=== PATIENT | female | born 1945 | race Caucasian/White ===

== ENCOUNTER 2017-09-09 13:36 | Observation (INO) | payer BC, OTHER ==
[2017-09-09 15:10] LABS: BASOPHILS # (AUTO) 0.1 X10^3/uL (0.0-0.1); BASOPHILS % (AUTO) 1.3 % (0.2-1.0); EOSINOPHILS # (AUTO) 0.2 x10^3/uL (0.0-0.2); EOSINOPHILS % (AUTO) 2.5 % (0.9-2.9); HEMATOCRIT 38.4 % (36.0-47.0); HEMOGLOBIN 13.2 g/dL (12.0-16.0); LYMPHOCYTES # (AUTO) 2.2 X10^3/uL (1.3-2.9); LYMPHOCYTES % (AUTO) 26.1 % (21.0-51.0); MEAN CORPUSCULAR HEMOGLOBIN 30.3 pg (27.0-34.0); MEAN CORPUSCULAR HGB CONC 34.3 g/dL (33.0-35.0); MEAN CORPUSCULAR VOLUME 88.4 fL (80.0-100.0); MEAN PLATELET VOLUME 8.5 fL (7.4-11.0); MONOCYTES # (AUTO) 0.5 x10^3/uL (0.3-0.8); MONOCYTES % (AUTO) 5.6 % (0.0-13.0); NEUTROPHILS # (AUTO) 5.5 x10^3/uL (2.2-4.8); NEUTROPHILS % (AUTO) 64.5 % (42.0-75.0); PLATELET COUNT 208 X10^3/uL (150.0-450.0); RED BLOOD COUNT 4.34 X10^6/uL (3.5-5.4); RED CELL DISTRIBUTION WIDTH 14.1 % (11.6-16.5); WHITE BLOOD COUNT 8.5 X10^3/uL (3.6-10.0)
[2017-09-09 15:28] LABS: ALANINE AMINOTRANSFERASE 43 Units/L (12-78); ALBUMIN 3.5 g/dL (3.4-5.0); ALKALINE PHOSPHATASE 126 Units/L (46-116); ASPARTATE AMINO TRANSFERASE 21 Units/L (15-37); BLOOD UREA NITROGEN 19 mg/dL (7-18); CALCIUM 8.9 mg/dL (8.5-10.1); CARBON DIOXIDE 28.8 mmol/L (21-32); CHLORIDE 102 mmol/L (98-107); COR NA(FOR HYPERGLY) 141 mmol/L (136-145); CREATININE 0.83 mg/dL (0.55-1.02); MAGNESIUM 1.9 mg/dL (1.7-2.9); SODIUM 140 mmol/L (136-145); TOTAL PROTEIN 6.7 g/dL (6.4-8.2); eGFR BLACK RACES > 60 (>60); eGFR NON BLACK RACES > 60 (>60)
[2017-09-09] MEDS ORDERED: POTASSIUM CHL 40 MEQ/NS 0.45% 500 ML IV PRN (15:39)
[2017-09-09] MEDS ORDERED: MAGNESIUM SULFATE 1 GM/100 mL PREMIX 1 GM/100 ML BAG IV PRN (15:39)
[2017-09-09] MEDS ORDERED: MAG-OX TAB PO PRN (15:39)
[2017-09-09] MEDS ORDERED: POTASSIUM CHL 60 MEQ/NS 0.45% 500 ML IV PRN (15:39)
[2017-09-09] MEDS ORDERED: POTASSIUM CHLORIDE LIQ 20 MEQ UDC PO PRN (15:39)
[2017-09-09] MEDS ORDERED: K-RIDER 10 MEQ/NS 100 ML 10 MEQ/100 ML BAG IV PRN (15:39)
[2017-09-09] MEDS ORDERED: K-LYTE EFFERVESCENT PO PRN (15:39)
[2017-09-09 15:50] LABS: CKMB % 1.5 % (<4); CREATINE KINASE 66 Units/L (26-192); CREATINE KINASE MB < 1.0 ng/mL (0-4.0); TROPONIN I < 0.02 ng/mL (0-1.5)
[2017-09-09] MEDS: NS 1000 ML 1,000 ML IV SCH (16:02)
[2017-09-09] MEDS: ASPIRIN PO SCH (16:02)
--- NOTE | 2017-09-09 16:14 | RAD ---
HISTORY: Chest pain and shortness of breath. Study: Portable chest. Comparison: Chest x-ray dated February 03, 2016. Findings: The trachea is midline. The cardiac silhouette is unremarkable. No obvious focal consolidation, ple ural effusion, or pneumothorax. The bony thorax is unremarkable. IMPRESSION: No acute cardiopulmonary disease. Reported By:
[2017-09-09 16:27] VITALS: BMI 37.8
--- NOTE | 2017-09-09 16:27 | CT ---
HISTORY: Chest pain, shortness of breath, and weakness. Study: CT brain without contrast Comparison: CT head dated January 22, 2016. Technique: Multiple axial images of the brain were obtained from the skull base to the vertex without administra tion of IV contrast. Dose reduction techniques including Automated Exposure Control (AEC) and adjust ment of mA and kV were utilized. Findings: Age-related cortical atrophy and chronic small vessel ischemic changes. Remote left craniotomy appear s unchanged given technique. No acute intraparenchymal hemorrhage or mass can be identified. No extr a-axial fluid collections are seen. No alteration in the attenuation of the brain parenchyma can be identified to suggest acute or subacute ischemic change. The ventricular system is symmetric and non dilated. The extracranial structures are grossly unremarkable. IMPRESSION: No acute intracranial pathology. Reported By:
[2017-09-09 17:00] LABS: BILIRUBIN,URINE NEGATIVE (NEGATIVE); BLOOD/HEMOGLOBIN,URINE NEGATIVE (NEGATIVE); GLUCOSE, URINE NEGATIVE (NEGATIVE); KETONES,URINE NEGATIVE (NEGATIVE); LEUKOCYTE ESTERASE ,URINE 3+ (NEGATIVE); NITRITES,URINE NEGATIVE (NEGATIVE); PROTEIN,URINE NEGATIVE (NEGATIVE); UROBILINOGEN,URINE NORMAL (NORMAL)
[2017-09-09 17:13] LABS: APPEARANCE,URINE CLEAR (CLEAR); BACTERIA,URINE NEGATIVE /HPF (NEGATIVE); COLOR,URINE YELLOW (YELLOW); RBC,URINE NEG /HPF (NONE SEEN); SQUAMOUS EPITHELIAL CELL,UR NEGATIVE /HPF (NEGATIVE)
[2017-09-09 19:25] LABS: CKMB % 1.4 % (<4); CREATINE KINASE 72 Units/L (26-192); CREATINE KINASE MB < 1.0 ng/mL (0-4.0); TROPONIN I < 0.02 ng/mL (0-1.5)
[2017-09-10] LABS: CKMB % 1.5 % (<4); CREATINE KINASE 68 Units/L (26-192); CREATINE KINASE MB < 1.0 ng/mL (0-4.0); TROPONIN I < 0.02 ng/mL (0-1.5)
[2017-09-10] MEDS: NS 1000 ML 1,000 ML IV SCH ×2 (04:39→15:49)
[2017-09-10 05:39] LABS: BASOPHILS # (AUTO) 0.1 X10^3/uL (0.0-0.1); EOSINOPHILS # (AUTO) 0.2 x10^3/uL (0.0-0.2); EOSINOPHILS % (AUTO) 3.4 % (0.9-2.9); HEMATOCRIT 38.6 % (36.0-47.0); HEMOGLOBIN 13.2 g/dL (12.0-16.0); LYMPHOCYTES % (AUTO) 30.6 % (21.0-51.0); MEAN CORPUSCULAR HEMOGLOBIN 30.4 pg (27.0-34.0); MEAN CORPUSCULAR HGB CONC 34.2 g/dL (33.0-35.0); MEAN CORPUSCULAR VOLUME 88.8 fL (80.0-100.0); MEAN PLATELET VOLUME 8.7 fL (7.4-11.0); MONOCYTES # (AUTO) 0.7 x10^3/uL (0.3-0.8); MONOCYTES % (AUTO) 10.1 % (0.0-13.0); NEUTROPHILS # (AUTO) 3.6 x10^3/uL (2.2-4.8); NEUTROPHILS % (AUTO) 54.9 % (42.0-75.0); PLATELET COUNT 202 X10^3/uL (150.0-450.0); RED BLOOD COUNT 4.35 X10^6/uL (3.5-5.4); RED CELL DISTRIBUTION WIDTH 14.3 % (11.6-16.5); WHITE BLOOD COUNT 6.6 X10^3/uL (3.6-10.0)
[2017-09-10 05:52] LABS: ALANINE AMINOTRANSFERASE 45 Units/L (12-78); ALBUMIN 3.3 g/dL (3.4-5.0); ALKALINE PHOSPHATASE 116 Units/L (46-116); ASPARTATE AMINO TRANSFERASE 26 Units/L (15-37); BLOOD UREA NITROGEN 15 mg/dL (7-18); CALCIUM 8.8 mg/dL (8.5-10.1); CHLORIDE 105 mmol/L (98-107); CHOL/HDL RATIO 3.7 (0.0-5.0); CHOLESTEROL 172 mg/dL (0-200); COR CA(FOR HYPOALB) 9.4 mg/dL (8.5-10.1); CREATININE 0.56 mg/dL (0.55-1.02); HDL CHOLESTEROL 46 mg/dL (40-60); SODIUM 141 mmol/L (136-145); TOTAL PROTEIN 6.3 g/dL (6.4-8.2); TRIGLYCERIDES 70 mg/dL (0-150); eGFR BLACK RACES > 60 (>60); eGFR NON BLACK RACES > 60 (>60)
--- NOTE | 2017-09-10 06:28 | RAD ---
HISTORY: 72-year-old female with chest pain and shortness of breath. Study: Frontal view of the chest. Comparison: Chest radiograph 09/09/2017 Findings: The trachea is midline. The cardiac silhouette is stable with prominent perihilar lung markings and interstitium. The lungs are clear without focal consolidation, effusion or pneumothorax. Soft tissue s are unremarkable. Osseous structures are unremarkable. IMPRESSION: 1. No acute cardiopulmonary disease. Reported By:
[2017-09-10] MEDS: ASPIRIN PO SCH (10:00)
[2017-09-10] MEDS ORDERED: LOMOTIL PO PRN (10:28)
[2017-09-10] MEDS ORDERED: NORCO 7.5/325 MG TAB PO PRN (10:28)
[2017-09-10] MEDS ORDERED: BOSWELLIA SERRA PO SCH (10:30)
[2017-09-10] MEDS ORDERED: D3 PO SCH (10:30)
[2017-09-10] MEDS ORDERED: GLUCOSAMINE PO SCH (10:30)
[2017-09-10] MEDS ORDERED: PATIENT'S HOME MEDICATION (Cholecalciferol (Vitamin D3) [Vitamin D3] 1 TAB) PO SCH (10:30)
[2017-09-10] MEDS ORDERED: CATAPRES-TTS-1 TD SCH (11:00)
[2017-09-10] MEDS ORDERED: NEURONTIN CAP 400 MG PO SCH ×2 (11:00→21:00)
[2017-09-10] MEDS: NORVASC TAB 5 MG PO SCH (13:30)
[2017-09-10] MEDS: SINGULAIR TAB 10 MG PO SCH (13:30)
--- NOTE | 2017-09-10 17:26 | MRI ---
MR brain with contrast Indication: Hypertension, weakness, altered mental status and dizziness. History of brain cancer in p rior brain surgery elicited. Comparison: CT head from the previous day. Technique: Multiplanar multi sequence imaging through the brain before and after IV contrast per prot ocol. Findings: Diffusion-weighted imaging shows no area of restricted diffusion to suggest infarction. Post craniotomy changes seen in the left parietal bone. Bone marrow signal is otherwise normal. Upper cervical spine is intact with minimal degenerative change. Orbits and globes appear normal. Facial s oft tissues appear normal. Paranasal sinuses and mastoid air cells are clear. Pituitary gland is norm al. Vascular flow voids appear normal. There is no extra-axial fluid collection, mass or mass effect. Gradient imaging shows no evidence of old hemorrhage in the brain. FLAIR imaging shows minimal periv entricular white matter changes and scattered microangiopathic change in the cerebral white matter wi thout focal lesion. Dear of beneath the craniotomy appears normal without large encephalomalacia. Min imal atrophic change with ex vacuo ventricle and sulcal enlargement is noted. After contrast, intracr anial structures enhance normally. No enhancing mass lesion identified. No abnormal area of parenchym al enhancement identified. Impression: 1. No acute intracranial hemorrhage or stroke. 2. Post left parietal craniotomy changes. 3. Mild atrophic change. 4. No enhancing brain mass identified. Reported By:
--- NOTE | 2017-09-10 17:31 | MRI ---
MRA head without contrast Indication: Weakness with altered mental status and dizziness. Technique: 3D plik-no-bexfts imaging through the brain was performed without contrast. 3D reformats p rovided. Comparison: Scan from the previous day and MR brain from the same day. Findings: The visualized vertebral areteries appear normal. The basilar artery is normal. The left po sterior cerebral artery is normal. The right posterior cerebral artery is provided flow via large pos terior communicating artery compatible with variant anatomy. The bilateral internal carotid arteries appear normal at the skullbase. At the level of the cavernous sinus there is mild to moderate narrowi ng of the transition to the supraclinoid/communicating segment. No large aneurysm seen. The bilateral anterior cerebral arteries are patent. Bilateral middle cerebral arteries are patent. Dural venous s inuses enhance normally. Impression: 1. No occlusion or aneurysm seen. 2. Variant left posterior cerebral artery origin. 3. Moderate narrowing of the communicating/supraclinoid segments of the bilateral internal carotid ar teries suggests atherosclerotic plaque without severe stenosis. Reported By:
[2017-09-10] MEDS ORDERED: MAALOX or MYLANTA PO PRN (19:53)
[2017-09-10] MEDS ORDERED: COUMADIN TAB 4 MG PO SCH (21:00)
[2017-09-10] MEDS ORDERED: LIPITOR TAB 40 MG PO SCH (21:00)
[2017-09-11] MEDS: NS 1000 ML 1,000 ML IV SCH (05:45)
[2017-09-11 06:01] LABS: BASOPHILS # (AUTO) 0.1 X10^3/uL (0.0-0.1); BASOPHILS % (AUTO) 0.9 % (0.2-1.0); EOSINOPHILS # (AUTO) 0.2 x10^3/uL (0.0-0.2); EOSINOPHILS % (AUTO) 3.4 % (0.9-2.9); HEMATOCRIT 40.3 % (36.0-47.0); HEMOGLOBIN 13.9 g/dL (12.0-16.0); LYMPHOCYTES # (AUTO) 1.9 X10^3/uL (1.3-2.9); LYMPHOCYTES % (AUTO) 26.6 % (21.0-51.0); MEAN CORPUSCULAR HEMOGLOBIN 30.5 pg (27.0-34.0); MEAN CORPUSCULAR HGB CONC 34.4 g/dL (33.0-35.0); MEAN CORPUSCULAR VOLUME 88.6 fL (80.0-100.0); MEAN PLATELET VOLUME 8.7 fL (7.4-11.0); MONOCYTES # (AUTO) 0.7 x10^3/uL (0.3-0.8); MONOCYTES % (AUTO) 10.3 % (0.0-13.0); NEUTROPHILS # (AUTO) 4.3 x10^3/uL (2.2-4.8); NEUTROPHILS % (AUTO) 58.8 % (42.0-75.0); PLATELET COUNT 197 X10^3/uL (150.0-450.0); RED BLOOD COUNT 4.54 X10^6/uL (3.5-5.4); WHITE BLOOD COUNT 7.2 X10^3/uL (3.6-10.0)
[2017-09-11 06:16] LABS: ALANINE AMINOTRANSFERASE 43 Units/L (12-78); ALBUMIN 3.3 g/dL (3.4-5.0); ALKALINE PHOSPHATASE 125 Units/L (46-116); ASPARTATE AMINO TRANSFERASE 25 Units/L (15-37); BLOOD UREA NITROGEN 12 mg/dL (7-18); CALCIUM 8.6 mg/dL (8.5-10.1); CARBON DIOXIDE 29.9 mmol/L (21-32); CHLORIDE 105 mmol/L (98-107); COR CA(FOR HYPOALB) 9.2 mg/dL (8.5-10.1); CREATININE 0.54 mg/dL (0.55-1.02); SODIUM 144 mmol/L (136-145); TOTAL PROTEIN 6.5 g/dL (6.4-8.2); eGFR BLACK RACES > 60 (>60); eGFR NON BLACK RACES > 60 (>60)
[2017-09-11] MEDS ORDERED: PAXIL PO SCH (09:00)
[2017-09-11] MEDS ORDERED: MICRO K EXTEN CAP 10 MEQ PO SCH (09:00)
[2017-09-11] MEDS ORDERED: COZAAR PO SCH (09:00)
[2017-09-11] MEDS ORDERED: HYDROCHLOROTHIAZIDE 12.5 MG CAP PO SCH (09:00)
[2017-09-11] MEDS: NORVASC TAB 5 MG PO SCH (09:37)
[2017-09-11] MEDS: ASPIRIN PO SCH (09:37)
[2017-09-11] MEDS: SINGULAIR TAB 10 MG PO SCH (09:37)
[2017-09-11 10:44] VITALS: BP 178/86
--- NOTE | 2017-09-14 14:05 | DR.UPDATE ---
H&P Update History and Physical Update: WAS SEEN IN THE OFFICE ON 09/09/2017. A H&P WAS COMPLETED PRIOR TO ADMISSION. PATIENT HAS BEEN SEEN AND EXAMINED WITH NO CHANGES NOTED TO H&P. Changes noted: NO Yes with the following:
== END 2017-09-11 10:55 | disposition home or self-care (01) ==
LOC: MED/SURG 13:36 → UNDOADMOB 13:36 → MED/SURG 14:09
PROVIDERS: ADMIT Internal Medicine; ATTEND Internal Medicine
DX: R06.02 Shortness of breath (principal); R53.1 Weakness; R07.89 Other chest pain; R42 Dizziness and giddiness; R94.31 Abnormal electrocardiogram [ECG] [EKG]; E03.8 Other specified hypothyroidism; E11.65 Type 2 diabetes mellitus with hyperglycemia; I10 Essential (primary) hypertension; F41.1 Generalized anxiety disorder; R79.1 Abnormal coagulation profile
CPT/HCPCS: 36415; 70450; 70544; 70552; 71045; 80053; 80061; 81001; 82550; 82553; 83036; 83735; 84484; 85025; 85610; 85730; 93005; 94760; A4216; A4222; G0378

== ENCOUNTER 2018-11-16 09:43 | Observation (INO) ==
[2018-11-16 09:59] VITALS: BMI 38.1
--- NOTE | 2018-11-16 10:22 | CT ---
HISTORY: Acute left-sided weakness Study: CT head without contrast Comparison: MRA brain 09/10/2017 Technique: Axial noncontrast images with coronal and sagittal reformats. Dose reduction procedures were used with mA/kv adjusted for body size. Findings: The patient is status post left posterior parietal craniotomy. The ventricles are normal in size, shape, and position. There is mild cortical atrophy present likely age related. There is no definite evidence for recent or remote CVA, hemorrhage, mass lesion, or extra-axial fluid collection. The visualized sinuses are clear. If acute CVA is a strong clinical consideration MRI with diffusion imaging is recommended for further evaluation. IMPRESSION: No acute intracranial abnormality Postoperative changes in the cranium as described Mild age-related cortical atrophy Reported By:
--- NOTE | 2018-11-16 10:25 | RAD ---
HISTORY: Left-sided weakness and chest pain. Study: Portable chest. Comparison: Chest x-ray dated September 10, 2017. Findings: The trachea is midline. The cardiac silhouette is unremarkable. No obvious focal consolidation, pleural effusion, or pneumothorax. The bony thorax is unremarkable. IMPRESSION: No acute cardiopulmonary disease. Reported By:
--- NOTE | 2018-11-16 10:26 | DR.WEAKNES ---
HPI Time Seen Time Seen by Provider: 11/16/18 09:53 Primary Care Physician Primary Care Physician: Payam HPI Comment HPI Comment: PT. STATES SHE GOT UP TO GO TO THE RESTROOM THIS MORNING AND SHE HAD NUMBNESS TO HER LEFT LEG. PT. STATES THE NUMBNESS THEN EXTENDED UP TO THE WHOLE LEFT SIDE OF HER BODY. PT. STATES "MY LEFT LEG FEELS ." EMS CALL TIME WAS 0904. PT. STATES EPISODE OCCURED 20 MINS PRIOR TO THEIR ARRIVAL. PT. DENIES PAIN. Complaints Chief Complaint Doctors Comments: Left sided weakness onset this AM. Patient noticed numbness to her left leg when attempting to go to the bathroom Chief Complaint:: LEFT SIDED WEAKNESS 08:45AM TODAY. Self Treatment fo Chief Complaint: Called EMS Reviewed Nurses Notes Reviewed: Yes Timing Symptom Onset: Known Onset of Symptoms Start Date: 11/16/18 Onset of Symptoms Start Time: 08:30 Duration Duration: Constant Context Onset: Spontaneous Symptoms: Numbness (left leg and does not have control of ther left arm) and Difficulty walking Stroke Symptoms: Weakness of limb and Numbness of limbs Location Weakness Location: Left, Arm and Leg Associated Signs and Symptoms Associated Signs and Symptoms: None PMH PMH Past Medical History: Arthritis, Depression, Dyslipidemia and Hypertension Past Surgical History: Yes Surgical History: [employer] Surgery, Hysterectomy and Ortho Surgery Family History Family Medical History: Cancer, Coronary Artery Disease, Sudden Cardiac and Hypertension Social History Do you use any recreational Drugs:: No ROS Review of Systems Constitutional: No Symptoms Reported Eyes: No Symptoms Reported ENTM: No Symptoms Reported Respiratoy: No Symptoms Reported Cardiovascular: No Symptoms Reported Gastrointestinal/Abdominal: No Symptoms Reported Genitourinary: No Symptoms Reported Neurological: No Symptoms Reported and Numbness (Left leg and difficulty controlling Left upper ext) Musculoskeletal: No Symptoms Reported Integumentary: No Symptoms Reported Hematologic/Lymphatic: No Symptoms Reported Endocrine: No Symptoms Reported Psychiatric: No Symptoms Reported All Other Systems: Reviewed and Negative PE Vital Signs Vitals: Temperature 98.2 F Pulse Rate [Apical] 66 Pulse Rate 70 Respiratory Rate 11 Blood Pressure [Right Arm] 178/86 Blood Pressure [Left Arm] 144/67 Blood Pressure 162/74 O2 Sat by Pulse Oximetry 98 General Limitations: Physical Limitation (since onset of sx) General Appearance: Alert and Anxious Head Head Exam: Normal Inspection Eyes Eye exam: Normal Appearance Eyelids: Normal Inspection: Bilateral Pupils: Regular, Round: Bilateral Sclera/Conjunctival: Normal Inspection: Bilateral Anterior Chamber: Normal Inspection: Bilateral ENT ENT Exam: Normal Exam Mouth Exam: Normal Inspection Throat Exam: Normal Inspection Neck Neck Exam: Normal Inspection Chest Chest Inspection: Normal Inspection Respiratory Respiratory Exam: Normal Lung Sounds Bilat Respiratory Exam: Bilateral: Clear to Auscultation Cardiovascular Cardiovascular Exam: Regular Rate and Normal Rhythm Abdominal Exam Abdominal Exam: Normal Inspection, Normal Bowel Sounds and Soft Extremities Extremities Exam: Other (Left side weakness ) Back Back Exam: Normal Inspection Neurologic Neurological Exam: Alert and Oriented X3 Psychiatric Psychiatric Exam: Normal Affect and Anxious Skin Skin Exam: Warm, Dry, Intact and Normal Color MDM Differential Diagnosis Differential Diagnosis: CVA ROR Labs Reviewed Laboratory Results Reviewed?: Yes Result Diagrams: 11/17/18 05:55 11/17/18 05:55 Laboratory: WBC 6.0 X10^3/uL (3.6-10.0) 11/17/18 05:55 RBC 4.03 X10^6/uL (3.5-5.4) 11/17/18 05:55 Hgb 12.7 g/dL (12.0-16.0) 11/17/18 05:55 Hct 37.2 % (36.0-47.0) 11/17/18 05:55 MCV 92.2 fL (80.0-100.0) 11/17/18 05:55 MCH 31.6 pg (27.0-34.0) 11/17/18 05:55 MCHC 34.3 g/dL (33.0-35.0) 11/17/18 05:55 RDW 13.9 % (11.6-16.5) 11/17/18 05:55 Plt Count 229 X10^3/uL (150.0-450.0) 11/17/18 05:55 MPV 8.0 fL (7.4-11.0) 11/17/18 05:55 Neut % (Auto) 42.8 % (42.0-75.0) 11/17/18 05:55 Lymph % (Auto) 39.4 % (21.0-51.0) 11/17/18 05:55 [place] % (Auto) 11.8 % (0.0-13.0) 11/17/18 05:55 Eos % (Auto) 4.8 % (0.9-2.9) H 11/17/18 05:55 Baso % (Auto) 1.2 % (0.2-1.0) H 11/17/18 05:55 Neut # (Auto) 2.6 x10^3/uL (2.2-4.8) 11/17/18 05:55 Lymph # (Auto) 2.4 X10^3/uL (1.3-2.9) 11/17/18 05:55 [place] # (Auto) 0.7 x10^3/uL (0.3-0.8) 11/17/18 05:55 Eos # (Auto) 0.3 x10^3/uL (0.0-0.2) H 11/17/18 05:55 Baso # (Auto) 0.1 X10^3/uL (0.0-0.1) 11/17/18 05:55 Absolute Nucleated RBC 0.1 /100WBC 11/17/18 05:55 INR Target Range - 11/17/18 05:55 INR 2.99 (0.8-1.3) H 11/17/18 05:55 APTT 35.5 SECONDS (22.9-36.5) 11/17/18 05:55 PTT Comment - 11/17/18 05:55 Sodium 143 mmol/L (136-145) 11/17/18 05:55 Corrected Sodium TNP 11/17/18 05:55 Potassium 3.9 mmol/L (3.5-5.1) 11/17/18 05:55 Chloride 108 mmol/L (98-107) H 11/17/18 05:55 Carbon Dioxide 27.4 mmol/L (21-32) 11/17/18 05:55 BUN 10 mg/dL (7-18) 11/17/18 05:55 Creatinine 0.57 mg/dL (0.55-1.02) 11/17/18 05:55 Est GFR (MDRD) Af Amer > 60 (>60) 11/17/18 05:55 Est GFR (MDRD) Non-Af > 60 (>60) 11/17/18 05:55 Glucose 99 mg/dL (65-99) 11/17/18 05:55 Calcium 8.7 mg/dL (8.5-10.1) 11/17/18 05:55 Corrected Calcium 9.5 mg/dL (8.5-10.1) 11/17/18 05:55 Magnesium 1.8 mg/dL (1.7-2.9) 11/16/18 10:06 Total Bilirubin 0.40 mg/dL (0.2-1.0) 11/17/18 05:55 AST 19 Units/L (15-37) 11/17/18 05:55 ALT 30 Units/L (12-78) 11/17/18 05:55 Alkaline Phosphatase 95 Units/L (46-116) 11/17/18 05:55 Creatine Kinase 62 Units/L (26-192) 11/16/18 23:09 CK-MB (CK-2) < 1.0 ng/mL (0-4.0) 11/16/18 23:09 CK/CKMB % Calc 1.6 % (<4) 11/16/18 23:09 Troponin I 0.02 ng/mL (0-1.5) 11/16/18 23:09 Total Protein 5.7 g/dL (6.4-8.2) L 11/17/18 05:55 Albumin 3.0 g/dL (3.4-5.0) L 11/17/18 05:55 Globulin 2.7 g/dL (2.5-4.5) 11/17/18 05:55 Albumin/Globulin Ratio 1.1 Ratio (1.1-2.1) 11/17/18 05:55 Triglycerides 142 mg/dL (0-150) 11/17/18 05:55 Cholesterol 161 mg/dL (0-200) 11/17/18 05:55 LDL Cholesterol, Calc 92 mg/dL (0-100) 11/17/18 05:55 HDL Cholesterol 41 mg/dL (40-60) 11/17/18 05:55 Cholesterol/HDL Ratio 3.9 (0.0-5.0) 11/17/18 05:55 Specimen Type Clean catch urine 11/17/18 02:44 Urine Color Pale yellow (YELLOW) 11/17/18 02:44 Urine Appearance Clear (CLEAR) 11/17/18 02:44 Urine pH 7.0 (5.0 - 8.0) 11/17/18 02:44 Ur Specific [place] 1.005 (1.000-1.030) 11/17/18 02:44 Urine Protein Negative (NEGATIVE) 11/17/18 02:44 Urine Glucose (UA) Negative (NEGATIVE) 11/17/18 02:44 Urine Ketones Negative (NEGATIVE) 11/17/18 02:44 Urine Occult Blood Negative (NEGATIVE) 11/17/18 02:44 Urine Nitrite Negative (NEGATIVE) 11/17/18 02:44 Urine Bilirubin Negative (NEGATIVE) 11/17/18 02:44 Urine Urobilinogen Normal (NORMAL) 11/17/18 02:44 Ur Leukocyte Esterase 3+ (NEGATIVE) 11/17/18 02:44 Urine RBC None seen /HPF (NONE SEEN) 11/17/18 02:44 Urine WBC 10-20 /HPF (NONE SEEN) 11/17/18 02:44 Ur Squamous Epith Cells Few /HPF (NEGATIVE) 11/17/18 02:44 Urine Bacteria Trace /HPF (NEGATIVE) 11/17/18 02:44 Ur Culture Indicated? Yes/culture set up 11/17/18 02:44 XRAY XRAY Interpreted by: Radiologist XRAY Findings: Discussed findings with patient and family EKG Rate: 71 [place]: Normal Rhythm: NSR Block: None Hypertrophy: LVH ST: Normal Diagnosis Discharge Problem: TIA (transient ischemic attack), Hypokalemia, Left-sided weakness ADDITIONAL NOTES Additional Notes Additional Notes: Dr. Noyola notified via the Transfer line for Stroke portal consult. Consult completed and states patient is not a candidate for TPA according to NIH score. Patient's PCP notified and agrees to admit for continual care.
[2018-11-16 10:52] LABS: ALANINE AMINOTRANSFERASE 36 Units/L (12-78); ALBUMIN 3.5 g/dL (3.4-5.0); ALKALINE PHOSPHATASE 125 Units/L (46-116); ASPARTATE AMINO TRANSFERASE 19 Units/L (15-37); BLOOD UREA NITROGEN 13 mg/dL (7-18); CARBON DIOXIDE 30.9 mmol/L (21-32); CHLORIDE 102 mmol/L (98-107); CKMB % 1.3 % (<4); COR NA(FOR HYPERGLY) 144 mmol/L (136-145); CREATINE KINASE 77 Units/L (26-192); CREATINE KINASE MB < 1.0 ng/mL (0-4.0); CREATININE 0.77 mg/dL (0.55-1.02); SODIUM 142 mmol/L (136-145); TOTAL PROTEIN 6.7 g/dL (6.4-8.2); TROPONIN I 0.02 ng/mL (0-1.5); eGFR NON BLACK RACES > 60 (>60)
[2018-11-16 11:15] LABS: BASOPHILS # (AUTO) 0.1 X10^3/uL (0.0-0.1); BASOPHILS % (AUTO) 1.3 % (0.2-1.0); EOSINOPHILS # (AUTO) 0.2 x10^3/uL (0.0-0.2); EOSINOPHILS % (AUTO) 4.6 % (0.9-2.9); HEMATOCRIT 41.3 % (36.0-47.0); LYMPHOCYTES # (AUTO) 1.8 X10^3/uL (1.3-2.9); LYMPHOCYTES % (AUTO) 33.9 % (21.0-51.0); MEAN CORPUSCULAR HEMOGLOBIN 31.2 pg (27.0-34.0); MEAN CORPUSCULAR VOLUME 91.9 fL (80.0-100.0); MEAN PLATELET VOLUME 8.7 fL (7.4-11.0); MONOCYTES # (AUTO) 0.5 x10^3/uL (0.3-0.8); NEUTROPHILS # (AUTO) 2.7 x10^3/uL (2.2-4.8); NEUTROPHILS % (AUTO) 51.2 % (42.0-75.0); PLATELET COUNT 268 X10^3/uL (150.0-450.0); RED BLOOD COUNT 4.49 X10^6/uL (3.5-5.4); WHITE BLOOD COUNT 5.3 X10^3/uL (3.6-10.0)
[2018-11-16] MEDS ORDERED: POTASSIUM CHL 40 MEQ/NS 0.45% 500 ML 40 MEQ/500 ML BAG IV NR (12:00)
[2018-11-16] MEDS ORDERED: NORMODYNE INJ 100 MG VIAL IVP ONE (12:47)
[2018-11-16] MEDS ORDERED: LASIX PO SCH (13:16)
--- NOTE | 2018-11-16 15:33 | VAS ---
History: Acute left-sided weakness this morning graft study: Carotid duplex ultrasound Comparison: None Findings: Images show mild plaque formation in the distal right common carotid artery and also in the distal left common carotid artery. Peak systolic velocity in the distal right common carotid artery is 69.5 centimeters/second and in the right internal carotid artery is 86 for a ratio of 1.23. Peak systolic velocity in the distal left common carotid artery is 66.2 centimeters/second and in the left internal carotid artery is 73.9 for a ratio of 1.1. There is antegrade flow in the vertebral arteries. Impression: Relatively mild plaque formation, no evidence for stenosis. Reported By:
[2018-11-16 17:14] LABS: CKMB % 1.5 % (<4); CREATINE KINASE 65 Units/L (26-192); CREATINE KINASE MB < 1.0 ng/mL (0-4.0); TROPONIN I 0.02 ng/mL (0-1.5)
[2018-11-16] MEDS: NS 1/2 + KCL 20 MEQ/L 1,000 ML IV SCH (18:22)
--- NOTE | 2018-11-16 20:59 | MRI ---
MR brain without contrast Indication: Left-sided weakness. Possible stroke Comparison: CT head and carotid Doppler ultrasound from the same day. Brain MR from 08/21/2017 reviewed Technique: Multiplanar multi sequence imaging through the brain without contrast Findings: There is no abnormal area of restricted diffusion to suggest acute infarction. Susceptibility artifact from prior craniotomy noted. Left-sided craniotomy changes noted. Bone marrow signal is normal. Cervical spine is intact. Soft tissues of the face appear normal. Paranasal sinuses are clear. Midline structures are intact. Vascular flow voids are normal. There is no acute intracranial hemorrhage, mass or mass effect. No extra-axial fluid collection is identified. Minimal periventricular white matter and cerebral white matter T2 hyperintensities are unchanged from the prior compatible with marker angio pathic change. Susceptibility artifact from the craniotomy again noted on T2 star imaging. No other abnormality seen. Impression: 1. No acute intracranial hemorrhage or acute infarction identified. 2. Atrophy, microangiopathy and left craniotomy change, all similar to the prior without new acute abnormality identified. Reported By:
[2018-11-16] MEDS: NEURONTIN CAP 400 MG PO SCH (21:53)
[2018-11-16] MEDS: LIPITOR TAB 40 MG PO SCH (21:53)
[2018-11-16 23:39] LABS: CKMB % 1.6 % (<4); CREATINE KINASE 62 Units/L (26-192); CREATINE KINASE MB < 1.0 ng/mL (0-4.0); TROPONIN I 0.02 ng/mL (0-1.5)
[2018-11-17] MEDS: NS 1/2 + KCL 20 MEQ/L 1,000 ML IV SCH ×3 (03:00→20:33)
[2018-11-17 03:35] LABS: BILIRUBIN,URINE NEGATIVE (NEGATIVE); BLOOD/HEMOGLOBIN,URINE NEGATIVE (NEGATIVE); GLUCOSE, URINE NEGATIVE (NEGATIVE); KETONES,URINE NEGATIVE (NEGATIVE); LEUKOCYTE ESTERASE ,URINE 3+ (NEGATIVE); NITRITES,URINE NEGATIVE (NEGATIVE); PROTEIN,URINE NEGATIVE (NEGATIVE); UROBILINOGEN,URINE NORMAL (NORMAL)
[2018-11-17 03:49] LABS: APPEARANCE,URINE CLEAR (CLEAR); BACTERIA,URINE TRACE /HPF (NEGATIVE); COLOR,URINE PALE YELLOW (YELLOW); RBC,URINE NONE SEEN /HPF (NONE SEEN); SQUAMOUS EPITHELIAL CELL,UR FEW /HPF (NEGATIVE)
[2018-11-17 06:19] LABS: BASOPHILS # (AUTO) 0.1 X10^3/uL (0.0-0.1); BASOPHILS % (AUTO) 1.2 % (0.2-1.0); EOSINOPHILS # (AUTO) 0.3 x10^3/uL (0.0-0.2); EOSINOPHILS % (AUTO) 4.8 % (0.9-2.9); HEMATOCRIT 37.2 % (36.0-47.0); HEMOGLOBIN 12.7 g/dL (12.0-16.0); LYMPHOCYTES # (AUTO) 2.4 X10^3/uL (1.3-2.9); LYMPHOCYTES % (AUTO) 39.4 % (21.0-51.0); MEAN CORPUSCULAR HEMOGLOBIN 31.6 pg (27.0-34.0); MEAN CORPUSCULAR HGB CONC 34.3 g/dL (33.0-35.0); MEAN CORPUSCULAR VOLUME 92.2 fL (80.0-100.0); MONOCYTES # (AUTO) 0.7 x10^3/uL (0.3-0.8); MONOCYTES % (AUTO) 11.8 % (0.0-13.0); NEUTROPHILS # (AUTO) 2.6 x10^3/uL (2.2-4.8); NEUTROPHILS % (AUTO) 42.8 % (42.0-75.0); PLATELET COUNT 229 X10^3/uL (150.0-450.0); RED BLOOD COUNT 4.03 X10^6/uL (3.5-5.4); RED CELL DISTRIBUTION WIDTH 13.9 % (11.6-16.5)
[2018-11-17 06:33] LABS: ALANINE AMINOTRANSFERASE 30 Units/L (12-78); ALKALINE PHOSPHATASE 95 Units/L (46-116); ASPARTATE AMINO TRANSFERASE 19 Units/L (15-37); BLOOD UREA NITROGEN 10 mg/dL (7-18); CALCIUM 8.7 mg/dL (8.5-10.1); CARBON DIOXIDE 27.4 mmol/L (21-32); CHLORIDE 108 mmol/L (98-107); CHOL/HDL RATIO 3.9 (0.0-5.0); CHOLESTEROL 161 mg/dL (0-200); COR CA(FOR HYPOALB) 9.5 mg/dL (8.5-10.1); CREATININE 0.57 mg/dL (0.55-1.02); HDL CHOLESTEROL 41 mg/dL (40-60); SODIUM 143 mmol/L (136-145); TOTAL PROTEIN 5.7 g/dL (6.4-8.2); TRIGLYCERIDES 142 mg/dL (0-150); eGFR NON BLACK RACES > 60 (>60)
[2018-11-17] MEDS ORDERED: GABAPENTIN 800 MG PO SCH (09:00)
[2018-11-17] MEDS ORDERED: NORVASC TAB 5 MG PO SCH (09:00)
[2018-11-17] MEDS ORDERED: COUMADIN TAB 4 MG PO SCH (09:00)
[2018-11-17] MEDS ORDERED: VOLTAREN 1 % GEL MULTI DOSE TUBE TOP PRN (09:08)
[2018-11-17] MEDS: MICRO K EXTEN CAP 10 MEQ PO SCH (09:23)
[2018-11-17] MEDS: COZAAR PO SCH (09:23)
[2018-11-17] MEDS: HYZAAR 50/12.5 MG PO SCH (09:23)
[2018-11-17] MEDS: PROTONIX TAB 40 MG PO SCH (09:23)
[2018-11-17] MEDS: PAXIL PO SCH (09:23)
[2018-11-17] MEDS ORDERED: PHARMACY CONSULT - DOSE _____ XX SCH (10:00)
[2018-11-17] MEDS: NORVASC TAB 5 MG PO SCH (10:57)
[2018-11-17] MEDS: LOVENOX INJ 40 MG SYR SC SCH (10:57)
[2018-11-17] MEDS: NEURONTIN CAP 400 MG PO SCH ×2 (12:26→20:32)
[2018-11-17] MEDS: LIPITOR TAB 40 MG PO SCH (20:32)
[2018-11-17] MEDS: XANAX PO PRN (20:33)
--- NOTE | 2018-11-17 22:23 | DR.H&P ---
H&P - History & Physical for Day of: H&P Date: 11/16/18 - Chief Complaint Chief Complaint: LEFT SIDED WEAKNESS - History of Present Illness History of Present Illness: IS A 73 YEAR OLD PATIENT OF OURS WHO PRESENTED TO THE ER WITH COMPLAINTS OF LEFT SIDED WEAKNESS AND NUMBNESS. SHE HAS SEVERE WEAKNESS TO THE LEFT LEG. SHE REPORTS THAT SYMPTOMS STARTED APPROXIMATELY TWENTY MINUTES PRIOR TO CALLING FOR EMS. SHE DENIES PAIN. ON ARRIVAL, VITALS WERE 98.2-69-23-94%RA-182/85. LABS WERE OBTAINED. ABNORMAL LAB VALUES INCLUDE THE FOLLOWING: INR 2.57, POTASSIUM 2.9, GLUCOSE 167, ALK PHOS 125. CARDIAC ENZYMES WITHIN NORMAL LIMITS. A BRAIN CT WAS OBTAINED AND REVEALED: No acute intracranial abnormality. Postoperative changes in the cranium as described. Mild age-related cortical atrophy. A CHEST XRAY WAS OBTAINED AND REVEALED: No acute intracranial abnormality. Postoperative changes in the cranium as described. Mild age-related cortical atrophy. EKG REVEALED: SINUS RHYTHM WITH HR 71. A BRAIN MRI WAS THEN OBTAINED AND REVEALED: No acute intracranial hemorrhage or acute infarction identified. Atrophy, microangiopathy and left craniotomy change, all similar to the prior without new acute abnormality identified. CAROTID DOPPLER ULTRASOUND REVEALED: Relatively mild plaque formation, no evidence for stenosis. SHE WAS STARTED ON 1/2NS WITH 20MEQ KCL AT 125ML/HR AND ADMITTED FOR FURTHER EVALUATION AND TREATMENT OF TIA AND LEFT SIDED WEAKNESS. WE WILL RESUME HOME MEDICATIONS. OTHERWISE, WE PLAN TO FOLLOW UP WITH AM LABS AND CONTINUE TO MONITOR. - Past Medical History Past Medical History: Hypertension, Dyslipidemia, Depression, Arthritis - Past Surgical History Surgical History: [employer] Surgery, Hysterectomy, Ortho Surgery - Family History Family Medical History: Cancer, Coronary Artery Disease, Sudden Cardiac , Hypertension - Social History Does patient currently use any type of tobacco product: No Have you used tobacco products in the last 12 months: No Type of Tobacco Use: None Does any household member use tobacco: No Alcohol Use: None Drug Use: None - Medications Home Medications: ketorolac Allergy (Mild, Verified 11/16/18 10:01) nitrofurantoin [From Macrodantin] Allergy (Verified 11/16/18 10:01) phenytoin Allergy (Verified 11/16/18 10:01) CONTINUE taking the following medications clonidine HCl 0.1 mg PO BID 11/16/18 [History] furosemide [Lasix] 20 mg PO .M,W,F 11/16/18 [History] montelukast 10 mg PO QAM 11/16/18 [History] pantoprazole 40 mg PO DAILY 11/16/18 [History] potassium chloride 8 meq PO DAILY 11/16/18 [History] - Review of Systems Constitutional: Weakness Eyes: No Symptoms Reported ENT: No Symptoms Reported Respiratory: No Symptoms Reported Cardiovascular: No Symptoms Reported Gastrointestinal: No Symptoms Reported Genitourinary: No Symptoms Reported Musculoskeletal: Other (LEFT SIDED UPPER AND LOWER EXTREMITY WEAKNESS AND NUMBNESS ) Skin: No Symptoms Reported Neurological: Weakness, Numbness - Physical Exam Vital Signs: Temperature 98.1 F Pulse Rate [Apical] 66 Pulse Rate 73 Respiratory Rate 24 Blood Pressure [Right Arm] 178/86 Blood Pressure [Left Arm] 144/67 Blood Pressure 147/63 O2 Sat by Pulse Oximetry 96 Oriented: Normal Eyes: Normal Ear: Normal Nose: Normal Throat: Normal Respiratory: Diminished Throughout Cardiovascular: Normal. negative: S3, S4, Murmur : Normal Auscultation: Bowel Sounds: Normal Palpation: Normal Tenderness: Normal Skin: Normal Musculoskeletal: Normal Psychiatric: Normal Mood Description: Calm Affect: Normal Speech Pattern: Clear - Assessment/Plan (1) TIA (transient ischemic attack) Status: Acute Plan: TELECOMMUNICATIONS MANAGER, BP CONTROL, BLOOD THINNERS, CONTINUE TO MONITOR (2) Hypokalemia Status: Acute Plan: IV FLUIDS WITH POTASSIUM, CONTINUE TO MONITOR (3) Left-sided weakness Status: Acute - Allergies Allergies/Adverse Reactions: Allergies Allergy/AdvReac Type Severity Reaction Status Date / Time ketorolac Allergy Mild Verified 11/16/18 10:01 nitrofurantoin Allergy Verified 11/16/18 10:01 [From Macrodantin] phenytoin Allergy Verified 11/16/18 10:01
[2018-11-18 05:20] LABS: BASOPHILS # (AUTO) 0.1 X10^3/uL (0.0-0.1); BASOPHILS % (AUTO) 1.1 % (0.2-1.0); EOSINOPHILS # (AUTO) 0.2 x10^3/uL (0.0-0.2); EOSINOPHILS % (AUTO) 3.8 % (0.9-2.9); HEMATOCRIT 37.9 % (36.0-47.0); HEMOGLOBIN 12.8 g/dL (12.0-16.0); LYMPHOCYTES # (AUTO) 2.2 X10^3/uL (1.3-2.9); LYMPHOCYTES % (AUTO) 32.9 % (21.0-51.0); MEAN CORPUSCULAR HEMOGLOBIN 31.5 pg (27.0-34.0); MEAN CORPUSCULAR HGB CONC 33.7 g/dL (33.0-35.0); MEAN CORPUSCULAR VOLUME 93.4 fL (80.0-100.0); MEAN PLATELET VOLUME 8.2 fL (7.4-11.0); MONOCYTES # (AUTO) 0.7 x10^3/uL (0.3-0.8); MONOCYTES % (AUTO) 10.6 % (0.0-13.0); NEUTROPHILS # (AUTO) 3.4 x10^3/uL (2.2-4.8); NEUTROPHILS % (AUTO) 51.6 % (42.0-75.0); PLATELET COUNT 236 X10^3/uL (150.0-450.0); RED BLOOD COUNT 4.05 X10^6/uL (3.5-5.4); RED CELL DISTRIBUTION WIDTH 14.1 % (11.6-16.5); WHITE BLOOD COUNT 6.6 X10^3/uL (3.6-10.0)
[2018-11-18 05:36] LABS: ALANINE AMINOTRANSFERASE 28 Units/L (12-78); ALBUMIN 2.9 g/dL (3.4-5.0); ALKALINE PHOSPHATASE 98 Units/L (46-116); ASPARTATE AMINO TRANSFERASE 15 Units/L (15-37); BLOOD UREA NITROGEN 8 mg/dL (7-18); CALCIUM 8.9 mg/dL (8.5-10.1); CHLORIDE 107 mmol/L (98-107); COR CA(FOR HYPOALB) 9.8 mg/dL (8.5-10.1); CREATININE 0.61 mg/dL (0.55-1.02); SODIUM 144 mmol/L (136-145); TOTAL PROTEIN 5.7 g/dL (6.4-8.2); eGFR NON BLACK RACES > 60 (>60)
[2018-11-18] MEDS: NS 1/2 + KCL 20 MEQ/L 1,000 ML IV SCH ×4 (05:57→18:06)
[2018-11-18] MEDS: HYZAAR 50/12.5 MG PO SCH (08:37)
[2018-11-18] MEDS: COZAAR PO SCH (08:37)
[2018-11-18] MEDS: NORVASC TAB 5 MG PO SCH (08:37)
[2018-11-18] MEDS: PROTONIX TAB 40 MG PO SCH (08:37)
[2018-11-18] MEDS: PAXIL PO SCH (08:37)
[2018-11-18] MEDS: LOVENOX INJ 40 MG SYR SC SCH (08:38)
[2018-11-18] MEDS: MICRO K EXTEN CAP 10 MEQ PO SCH (08:38)
--- NOTE | 2018-11-18 09:31 | PCM.PROG ---
Progress Note - Progress Note for Day of Date of Exam: 11/17/18 - Subjective Subjective: WAS ADMITTED FOR TIA AND LEFT SIDED WEAKNESS. TODAY, SHE IS ALERT AND ORIENTED, LYING IN BED ON MORNING ROUNDS. SHE CONTINUES WITH WEAKNESS, BUT REPORTS IMPROVEMENT SINCE ADMISSION. SHE DOES REPORT PAIN TO THE LEFT SHOULDER AND NECK. ON EXAMINATION, HEART IS REGULAR IN RATE AND RHYTHM. BILATERAL LUNGS ARE NOTED WITH DIMINISHED LUNG SOUNDS THROUGHOUT. ABDOMEN IS ROUND, SOFT, AND NON-TENDER WITH NORMAL BOWEL SOUNDS NOTED IN ALL QUADRANTS. HER VITALS THIS MORNING ARE 98.2-79-30-97%-185/81. LABS WERE OBTAINED. ABNORMAL LAB VALUES INCLUDE THE FOLLOWING: INR 2.99, CHLORIDE 108, TOTAL PROTEIN 5.7, ALBUMIN 3.0. URINALYSIS WAS OBTAINED THIS MORNING AND REVEALED WBC 10-20, LEUKOCYTES 3+, BACTERIA TRACE. URINE CULTURE PENDING. TODAY, WE WILL INCREASE HER AMLODIPINE TO 10MG PO DAILY AND START VOLTAREN GEL FOR PAIN. WE WILL HAVE PHYSICAL THERAPY WORK WITH PATIENT. OTHERWISE, WE PLAN TO FOLLOW-UP WITH AM LABS AND CONTINUE TO MONITOR. - Past Medical Family Social History Past Med/Fam/Surg Hx: No changes since H&P Allergies: Allergies ketorolac Allergy (Mild, Verified 11/16/18 10:01) nitrofurantoin [From Macrodantin] Allergy (Verified 11/16/18 10:01) phenytoin Allergy (Verified 11/16/18 10:01) - Review of Systems ROS: No change since H&P - Vital Signs and I&O's Vital Signs: Temperature 99.0 F Pulse Rate [Apical] 66 Pulse Rate 74 Respiratory Rate 20 Blood Pressure [Right Arm] 178/86 Blood Pressure [Left Arm] 144/67 Blood Pressure 163/71 O2 Sat by Pulse Oximetry 98 Intake and Output: Intake & Output 11/15/18 11/16/18 11/17/18 11/18/18 11:59 11:59 11:59 11:59 Intake Total 1715 / 1715 3522 / 3522 Output Total 200 / 200 501 / 501 Balance 1515 / 1515 3021 / 3021 - Physical Exam Oriented: Normal Eyes: Normal Ear: Normal Nose: Normal Throat: Normal Respiratory: Diminished Cardiovascular: Normal. negative: S3, S4, Murmur : Normal Auscultation: Bowel Sounds: Normal Palpation: Normal Tenderness: Normal Skin: Normal Musculoskeletal: Normal Psychiatric: Normal Mood Description: Calm Affect: Normal Speech Pattern: Clear, Appropriate - Laboratory and Diagnostics Result Diagrams: 11/18/18 04:50 11/18/18 04:50 Labs: Laboratory WBC 6.6 X10^3/uL (3.6-10.0) 11/18/18 04:50 RBC 4.05 X10^6/uL (3.5-5.4) 11/18/18 04:50 Hgb 12.8 g/dL (12.0-16.0) 11/18/18 04:50 Hct 37.9 % (36.0-47.0) 11/18/18 04:50 MCV 93.4 fL (80.0-100.0) 11/18/18 04:50 MCH 31.5 pg (27.0-34.0) 11/18/18 04:50 MCHC 33.7 g/dL (33.0-35.0) 11/18/18 04:50 RDW 14.1 % (11.6-16.5) 11/18/18 04:50 Plt Count 236 X10^3/uL (150.0-450.0) 11/18/18 04:50 MPV 8.2 fL (7.4-11.0) 11/18/18 04:50 Neut % (Auto) 51.6 % (42.0-75.0) 11/18/18 04:50 Lymph % (Auto) 32.9 % (21.0-51.0) 11/18/18 04:50 [place] % (Auto) 10.6 % (0.0-13.0) 11/18/18 04:50 Eos % (Auto) 3.8 % (0.9-2.9) H 11/18/18 04:50 Baso % (Auto) 1.1 % (0.2-1.0) H 11/18/18 04:50 Neut # (Auto) 3.4 x10^3/uL (2.2-4.8) 11/18/18 04:50 Lymph # (Auto) 2.2 X10^3/uL (1.3-2.9) 11/18/18 04:50 [place] # (Auto) 0.7 x10^3/uL (0.3-0.8) 11/18/18 04:50 Eos # (Auto) 0.2 x10^3/uL (0.0-0.2) 11/18/18 04:50 Baso # (Auto) 0.1 X10^3/uL (0.0-0.1) 11/18/18 04:50 Absolute Nucleated RBC 0.1 /100WBC 11/18/18 04:50 INR Target Range - 11/18/18 04:50 INR 2.47 (0.8-1.3) H 11/18/18 04:50 APTT 35.5 SECONDS (22.9-36.5) 11/17/18 05:55 PTT Comment - 11/17/18 05:55 Sodium 144 mmol/L (136-145) 11/18/18 04:50 Corrected Sodium TNP 11/18/18 04:50 Potassium 3.9 mmol/L (3.5-5.1) 11/18/18 04:50 Chloride 107 mmol/L (98-107) 11/18/18 04:50 Carbon Dioxide 30.0 mmol/L (21-32) 11/18/18 04:50 BUN 8 mg/dL (7-18) 11/18/18 04:50 Creatinine 0.61 mg/dL (0.55-1.02) 11/18/18 04:50 Est GFR (MDRD) Af Amer > 60 (>60) 11/18/18 04:50 Est GFR (MDRD) Non-Af > 60 (>60) 11/18/18 04:50 Glucose 104 mg/dL (65-99) H 11/18/18 04:50 Calcium 8.9 mg/dL (8.5-10.1) 11/18/18 04:50 Corrected Calcium 9.8 mg/dL (8.5-10.1) 11/18/18 04:50 Magnesium 1.8 mg/dL (1.7-2.9) 11/16/18 10:06 Total Bilirubin 0.50 mg/dL (0.2-1.0) 11/18/18 04:50 AST 15 Units/L (15-37) 11/18/18 04:50 ALT 28 Units/L (12-78) 11/18/18 04:50 Alkaline Phosphatase 98 Units/L (46-116) 11/18/18 04:50 Creatine Kinase 62 Units/L (26-192) 11/16/18 23:09 CK-MB (CK-2) < 1.0 ng/mL (0-4.0) 11/16/18 23:09 CK/CKMB % Calc 1.6 % (<4) 11/16/18 23:09 Troponin I 0.02 ng/mL (0-1.5) 11/16/18 23:09 Total Protein 5.7 g/dL (6.4-8.2) L 11/18/18 04:50 Albumin 2.9 g/dL (3.4-5.0) L 11/18/18 04:50 Globulin 2.8 g/dL (2.5-4.5) 11/18/18 04:50 Albumin/Globulin Ratio 1.0 Ratio (1.1-2.1) L 11/18/18 04:50 Triglycerides 142 mg/dL (0-150) 11/17/18 05:55 Cholesterol 161 mg/dL (0-200) 11/17/18 05:55 LDL Cholesterol, Calc 92 mg/dL (0-100) 11/17/18 05:55 HDL Cholesterol 41 mg/dL (40-60) 11/17/18 05:55 Cholesterol/HDL Ratio 3.9 (0.0-5.0) 11/17/18 05:55 Specimen Type Clean catch urine 11/17/18 02:44 Urine Color Pale yellow (YELLOW) 11/17/18 02:44 Urine Appearance Clear (CLEAR) 11/17/18 02:44 Urine pH 7.0 (5.0 - 8.0) 11/17/18 02:44 Ur Specific Fisher 1.005 (1.000-1.030) 11/17/18 02:44 Urine Protein Negative (NEGATIVE) 11/17/18 02:44 Urine Glucose (UA) Negative (NEGATIVE) 11/17/18 02:44 Urine Ketones Negative (NEGATIVE) 11/17/18 02:44 Urine Occult Blood Negative (NEGATIVE) 11/17/18 02:44 Urine Nitrite Negative (NEGATIVE) 11/17/18 02:44 Urine Bilirubin Negative (NEGATIVE) 11/17/18 02:44 Urine Urobilinogen Normal (NORMAL) 11/17/18 02:44 Ur Leukocyte Esterase 3+ (NEGATIVE) 11/17/18 02:44 Urine RBC None seen /HPF (NONE SEEN) 11/17/18 02:44 Urine WBC 10-20 /HPF (NONE SEEN) 11/17/18 02:44 Ur Squamous Epith Cells Few /HPF (NEGATIVE) 11/17/18 02:44 Urine Bacteria Trace /HPF (NEGATIVE) 11/17/18 02:44 Ur Culture Indicated? Yes/culture set up 11/17/18 02:44 - Plan (1) TIA (transient ischemic attack) Status: Acute Plan: DEGREASING SOLUTION MIXER, BP CONTROL, BLOOD THINNERS, CONTINUE TO MONITOR (2) Hypokalemia Status: Acute Plan: IV FLUIDS WITH POTASSIUM, CONTINUE TO MONITOR (3) Left-sided weakness Status: Acute (4) Hypertension Status: Chronic Qualifiers: Hypertension type: essential hypertension Qualified Code(s): I10 - Essential (primary) hypertension Plan: AMLODIPINE 10MG PO DAILY, COZAAR 50MG PO DAILY, CONTINUE TO MONITOR
[2018-11-18] MEDS: ROCEPHIN VIAL 1 GRAM IVP SCH (10:32)
[2018-11-18 12:22] LABS: BILIRUBIN,URINE NEGATIVE (NEGATIVE); BLOOD/HEMOGLOBIN,URINE NEGATIVE (NEGATIVE); GLUCOSE, URINE NEGATIVE (NEGATIVE); KETONES,URINE NEGATIVE (NEGATIVE); LEUKOCYTE ESTERASE ,URINE NEGATIVE (NEGATIVE); NITRITES,URINE NEGATIVE (NEGATIVE); PROTEIN,URINE NEGATIVE (NEGATIVE); UROBILINOGEN,URINE NORMAL (NORMAL)
[2018-11-18 12:23] LABS: APPEARANCE,URINE CLEAR (CLEAR); COLOR,URINE YELLOW (YELLOW)
[2018-11-18] MEDS: NEURONTIN CAP 400 MG PO SCH ×2 (12:56→21:28)
[2018-11-18] MEDS ORDERED: BUTT CREAM (COMPOUND) TOP PRN (16:10)
[2018-11-18] MEDS: CATAPRES TAB 0.1 MG PO SCH ×2 (18:14→19:59)
[2018-11-18] MEDS: LIPITOR TAB 40 MG PO SCH (21:28)
[2018-11-18] MEDS: XANAX PO PRN (21:28)
[2018-11-19] MEDS: NS 1/2 + KCL 20 MEQ/L 1,000 ML IV SCH ×2 (05:22→12:12)
[2018-11-19 06:17] LABS: BASOPHILS # (AUTO) 0.1 X10^3/uL (0.0-0.1); EOSINOPHILS # (AUTO) 0.3 x10^3/uL (0.0-0.2); HEMATOCRIT 36.6 % (36.0-47.0); HEMOGLOBIN 12.5 g/dL (12.0-16.0); LYMPHOCYTES % (AUTO) 31.5 % (21.0-51.0); MEAN CORPUSCULAR HEMOGLOBIN 31.5 pg (27.0-34.0); MEAN CORPUSCULAR HGB CONC 34.1 g/dL (33.0-35.0); MEAN CORPUSCULAR VOLUME 92.6 fL (80.0-100.0); MEAN PLATELET VOLUME 8.2 fL (7.4-11.0); MONOCYTES # (AUTO) 0.6 x10^3/uL (0.3-0.8); MONOCYTES % (AUTO) 10.2 % (0.0-13.0); NEUTROPHILS # (AUTO) 3.4 x10^3/uL (2.2-4.8); NEUTROPHILS % (AUTO) 53.3 % (42.0-75.0); PLATELET COUNT 213 X10^3/uL (150.0-450.0); RED BLOOD COUNT 3.95 X10^6/uL (3.5-5.4); RED CELL DISTRIBUTION WIDTH 14.2 % (11.6-16.5); WHITE BLOOD COUNT 6.4 X10^3/uL (3.6-10.0)
[2018-11-19 06:35] LABS: ALANINE AMINOTRANSFERASE 28 Units/L (12-78); ALBUMIN 2.9 g/dL (3.4-5.0); ALKALINE PHOSPHATASE 100 Units/L (46-116); ASPARTATE AMINO TRANSFERASE 17 Units/L (15-37); BLOOD UREA NITROGEN 13 mg/dL (7-18); CALCIUM 8.9 mg/dL (8.5-10.1); CARBON DIOXIDE 29.2 mmol/L (21-32); CHLORIDE 105 mmol/L (98-107); COR CA(FOR HYPOALB) 9.8 mg/dL (8.5-10.1); CREATININE 0.64 mg/dL (0.55-1.02); SODIUM 143 mmol/L (136-145); TOTAL PROTEIN 5.7 g/dL (6.4-8.2); eGFR NON BLACK RACES > 60 (>60)
[2018-11-19] MEDS: COZAAR PO SCH (08:24)
[2018-11-19] MEDS: HYZAAR 50/12.5 MG PO SCH (08:24)
[2018-11-19] MEDS: ROCEPHIN VIAL 1 GRAM IVP SCH (08:24)
[2018-11-19] MEDS: PROTONIX TAB 40 MG PO SCH (08:24)
[2018-11-19] MEDS: NORVASC TAB 5 MG PO SCH (08:24)
[2018-11-19] MEDS: PAXIL PO SCH (08:25)
[2018-11-19] MEDS: CATAPRES TAB 0.1 MG PO SCH ×2 (08:25→10:00)
[2018-11-19] MEDS: MICRO K EXTEN CAP 10 MEQ PO SCH (08:25)
[2018-11-19] MEDS ORDERED: SINGULAIR TAB 10 MG PO SCH (09:00)
[2018-11-19] MEDS: NEURONTIN CAP 400 MG PO SCH (12:12)
[2018-11-19] MEDS: LOVENOX INJ 40 MG SYR SC SCH (12:13)
[2018-11-19 12:14] VITALS: BP 135/62
== END 2018-11-19 12:20 | disposition home or self-care (01) ==
LOC: ICU 09:43 → ER 09:43 → ICU 12:57
PROVIDERS: ADMIT Internal Medicine; ATTEND Internal Medicine
DX: G45.9 Transient cerebral ischemic attack, unspecified; R79.1 Abnormal coagulation profile; R20.0 Anesthesia of skin; E87.6 Hypokalemia; R26.89 Other abnormalities of gait and mobility; F32.89 Other specified depressive episodes; R53.1 Weakness; E78.2 Mixed hyperlipidemia; I10 Essential (primary) hypertension; R94.31 Abnormal electrocardiogram [ECG] [EKG]
CPT/HCPCS: 36415; 70450; 70551; 71010; 71045; 80053; 80061; 81001; 81003; 82550; 82553; 83735; 84132; 84484; 85025; 85610; 85730; 87086; 92610; 93005; 93880; 96365; 96367; 96372; 96374; 97110; 97116; 97161; 99284; A4216; A4222; J7030; G0378; J0696; J1650; J3480

== ENCOUNTER 2020-11-16 10:15 | Observation (INO) ==
[2020-11-16 10:32] VITALS: BMI 35.1
--- NOTE | 2020-11-16 10:52 | DR.GENAD ---
HPI Time Seen Time Seen by Provider: 11/16/20 10:48 PCP Primary Care Physician: JONO HOLLIDAY HPI Comment HPI Comment: PATIENT IS 75YR OLS FEMALE IN ER WITH COUGH, CONGESTION TIMES ONE WEEK UNDER TREATMENT AND EELEVATED BP AND LEFT UPPER CHEST PAIN. PATIENT IS WEAK AND FATIGUE. NO FEVER. PAIN IS SHARP, LEFT UPPER CHEST RADIATING TO LEFT ARM AND LEFT NECK. PAIN IS 2/10 CURRENTLY. DENIES SIMILAR PAIN PREVIOUSLY. Complaint/Symptoms Chief Complaint Doctors Comments: ELEVATED BP, LEFT UPPER CHEST PAIN AND CURRENT URI UNDER TREATMENT. Chief Complaint:: PATIENT CAME TO ER REPORTS BLOOD PRESSURE HIGH, IS CURRENTLY BEING TREATED FOR URI. PATIENT ALSO REPORTS HAVING DIARRHEA, PAIN LEFT UPPER CHEST AND JAW, AND HAVING "LOTS OF GAS" ONSET 6AM. COVID-19 Coronavirus risk:travel/contact w/high risk person: No Has patient experienced Coronavirus symptoms: No Nurses notes reviewed Nurses Notes Review: Yes Source History Provided: Patient Mode of Arrival Mode of Arrival: Ambulatory Timing Onset of Chief Complaint: 11/16/20 Came on: Suddenly Duration Duration: Constant Duration: Days Severity Severity: Moderate Modifying Factors Worsens:: EXERTION. Improves:: REST. Associated Signs and Symptoms Associated Signs and Symptoms: WEAK. Other History Other History: HYPERTENSION PMH PMH Past Medical History: Yes Past Medical History: Anxiety, Dyslipidemia and Hypertension Past Medical History Comment: RA, HX BLOOD CLOT IN LUNG Past Surgical History: Yes Surgical History: Hysterectomy Past Surgical History Comment: RIGHT KNEE, BRAIN TUMOR REMOVED Family History History of Family Medical Conditions: Yes Family Medical History: Heart Failure and Hypertension Family Medical History Comment: CVA Social History Alcohol Use: None Do you use any recreational Drugs:: No Lives With: Spouse Lives Where: Home Travel Risk Coronavirus risk:travel/contact w/high risk person: No Has patient experienced Coronavirus symptoms: No Infectious screening In the last 2 months have you had wt loss of >10#?: NO Have you had fever, night sweats or hemotysis?: No Have you traveled outside the country in the last 6 months?: No Isolation: Standard ROS Review of Systems Constitutional: Weakness and Fatigue; negative Fever Eyes: No Symptoms Reported and See HPI ENTM: No Symptoms Reported, See HPI, Nose Discharge and Nose Congestion Respiratoy: No Symptoms Reported, See HPI and Moist Cough; negative Short of Breath and Wheezing Cardiovascular: See HPI and Chest Pain Gastrointestinal/Abdominal: No Symptoms Reported and See HPI; negative Abdominal Pain, Diarrhea and Vomiting Genitourinary: No Symptoms Reported and See HPI; negative Dysuria, Frequency and Hematuria Neurological: See HPI and Weakness; negative Headache and Dizziness Musculoskeletal: No Symptoms Reported and See HPI Integumentary: No Symptoms Reported and See HPI; negative Change in Color, Rash and Juandice Hematologic/Lymphatic: See HPI and Easy Bruising Endocrine: No Symptoms Reported and See HPI Psychiatric: No Symptoms Reported and See HPI All Other Systems: Reviewed and Negative PE Vital Signs Vitals: Temperature 97.3 F Pulse Rate 67 Respiratory Rate 18 Blood Pressure [Right Arm] 178/86 Blood Pressure [Left Arm] 144/67 Blood Pressure 136/65 O2 Sat by Pulse Oximetry 98 General Limitations: No Limitations General Appearance: Alert and In No Apparent Distress Head Head Exam: Normal Inspection and Atraumatic Eyes Eye exam: Normal Appearance and PERRL; negative Scleral Icterus and Conjunctival Injection ENT ENT Exam: Normal External Ear Exam; negative Normal Oropharynx and TM's Normal Bilaterally External Ear Exam: Normal External Inspection; negative Mastoid Tenderness TM/Canal Exam: Bilateral: Normal Nose Exam: Normal Nose Exam and Sinus Tenderness Mouth Exam: Normal Inspection; negative Lip Swelling and Tongue Swelling Throat Exam: Tonsillar Erythema; negative Tonsillomegaly and Tonsillar Exudate Neck Neck Exam: Normal Inspection and Trachea Midline; negative Tenderness and Lymphadenopathy Chest Chest Inspection: Normal Inspection and Symmetric Chest Wall Rise; negative Tenderness Respiratory Respiratory Exam: Normal Lung Sounds Bilat; negative Accessory Muscle Use, Chest Wall Tenderness and Respiratory Distress Respiratory Exam: Bilateral: Clear to Auscultation Cardiovascular Cardiovascular Exam: Regular Rate, Normal Rhythm and Normal Heart Sounds; negative Systolic Murmur and Diastolic Murmur Abdominal Exam Abdominal Exam: Normal Inspection, Normal Bowel Sounds and Soft; negative Tenderness Extremities Extremities Exam: Normal Inspection and Normal Capillary Refill; negative Tenderness, Edema and Calf Tenderness Back Back Exam: Normal Inspection; negative (R) CVA Tenderness and (L) CVA Tenderness Neurologic Neurological Exam: Alert and Oriented X3; negative Motor Sensory Deficit Psychiatric Psychiatric Exam: Normal Affect and Normal Mood Skin Skin Exam: Warm, Dry, Intact and Normal Color MDM Additional Information Additional Information Obtained From: Old Records Differential Diagnosis Differential Diagnosis: GENERALIZED WEAKNESS, HYPERTENSION, CHEST PAIN, B RONCHITIST, PNEUMONIA. COURSE Treatment Treatment: SEE ORDERS. Consultation Consultation Comments: DISCUSSED PATIENT WITH DR. SPARKS. HE WILL ADMIT PATIENT. Education/Counseling Education/Counseling: Patient Educated On: Diagnosis ROR Labs Reviewed Laboratory Results Reviewed?: Yes Result Diagrams: 11/17/20 01:56 11/17/20 01:56 Laboratory: WBC 16.7 X10^3/uL (3.6-10.0) H 11/16/20 10:55 RBC 3.99 X10^6/uL (3.5-5.4) 11/16/20 10:55 Hgb 12.2 g/dL (12.0-16.0) 11/16/20 10:55 Hct 36.0 % (36.0-47.0) 11/16/20 10:55 MCV 90.1 fL (80.0-100.0) 11/16/20 10:55 MCH 30.5 pg (27.0-34.0) 11/16/20 10:55 MCHC 33.8 g/dL (33.0-35.0) 11/16/20 10:55 RDW 14.1 % (11.6-16.5) 11/16/20 10:55 Plt Count 249 X10^3/uL (150.0-450.0) 11/16/20 10:55 MPV 7.8 fL (7.4-11.0) 11/16/20 10:55 Neut % (Auto) 68.0 % (42.0-75.0) 11/16/20 10:55 Lymph % (Auto) 21.6 % (21.0-51.0) 11/16/20 10:55 [place] % (Auto) 9.8 % (0.0-13.0) 11/16/20 10:55 Eos % (Auto) 0.1 % (0.9-2.9) L 11/16/20 10:55 Baso % (Auto) 0.5 % (0.2-1.0) 11/16/20 10:55 Neut # (Auto) 11.3 x10^3/uL (2.2-4.8) H 11/16/20 10:55 Lymph # (Auto) 3.6 X10^3/uL (1.3-2.9) H 11/16/20 10:55 [place] # (Auto) 1.6 x10^3/uL (0.3-0.8) H 11/16/20 10:55 Eos # (Auto) 0.0 x10^3/uL (0.0-0.2) 11/16/20 10:55 Baso # (Auto) 0.1 X10^3/uL (0.0-0.1) 11/16/20 10:55 Absolute Nucleated RBC 0.0 /100WBC 11/16/20 10:55 PT 25.1 SECONDS (11.8-14.3) 11/16/20 10:55 INR Target Range - 11/16/20 10:55 INR 2.41 (0.8-1.3) H 11/16/20 10:55 APTT 31.0 SECONDS (22.9-36.5) 11/16/20 10:55 PTT Comment - 11/16/20 10:55 Sodium 143 mmol/L (136-145) 11/16/20 10:55 Corrected Sodium TNP 11/16/20 10:55 Potassium 2.9 mmol/L (3.5-5.1) L* 11/16/20 10:55 Chloride 105 mmol/L (98-107) 11/16/20 10:55 Carbon Dioxide 31.1 mmol/L (21-32) 11/16/20 10:55 BUN 11 mg/dL (7-18) 11/16/20 10:55 Creatinine 0.62 mg/dL (0.55-1.02) 11/16/20 10:55 Est GFR (MDRD) Af Amer > 60 (>60) 11/16/20 10:55 Est GFR (MDRD) Non-Af > 60 (>60) 11/16/20 10:55 Glucose 72 mg/dL (65-99) 11/16/20 10:55 Calcium 9.0 mg/dL (8.5-10.1) 11/16/20 10:55 Corrected Calcium 9.6 mg/dL (8.5-10.1) 11/16/20 10:55 Total Bilirubin 0.40 mg/dL (0.2-1.0) 11/16/20 10:55 AST 18 Units/L (15-37) 11/16/20 10:55 ALT 35 Units/L (12-78) 11/16/20 10:55 Alkaline Phosphatase 100 Units/L (46-116) 11/16/20 10:55 Creatine Kinase 47 Units/L (26-192) 11/16/20 14:00 CK-MB (CK-2) < 1.0 ng/mL (0-4.0) 11/16/20 14:00 CK/CKMB % Calc 2.1 % (<4) 11/16/20 14:00 Troponin I 0.04 ng/mL (0-1.5) 11/16/20 14:00 B-Natriuretic Peptide 124 pg/mL (0-79) H 11/16/20 10:55 Total Protein 6.6 g/dL (6.4-8.2) 11/16/20 10:55 Albumin 3.3 g/dL (3.4-5.0) L 11/16/20 10:55 Globulin 3.3 g/dL (2.5-4.5) 11/16/20 10:55 Albumin/Globulin Ratio 1.0 Ratio (1.1-2.1) L 11/16/20 10:55 XRAY XRAY Interpreted by: Radiologist (REPORT NOTED AND DISCUSSED WITH PATIENT.) and Self EKG Rate: 64 Millis: Normal Rhythm: NSR Block: LBBB Hypertrophy: None ST: Nonsp Opioid Opioid Risk Tool Age (Teo box if 16-45): No History of Preadolescent Sexual Abuse: No Total: 0 Total Score Risk Category: Low Risk Copyright: Isidoro predicting aberrant behaviors Diagnosis Discharge Problem: Chest pain, rule out acute myocardial infarction Hypertension Qualifiers: Hypertension type: essential hypertension Qualified Code(s): I10 - Essential (primary) hypertension Instructions Instructions: Nonspecific Chest Pain, [id number] How to Take Your Blood Pressure, [id number] Form - Blood Pressure Record Sheet Clonidine tablets Hypertension Forms: Excuse From Work or School Precautions for COVID19 Patient Portal Social Distancing
[2020-11-16 11:08] LABS: BASOPHILS # (AUTO) 0.1 X10^3/uL (0.0-0.1); BASOPHILS % (AUTO) 0.5 % (0.2-1.0); EOSINOPHILS % (AUTO) 0.1 % (0.9-2.9); HEMOGLOBIN 12.2 g/dL (12.0-16.0); LYMPHOCYTES # (AUTO) 3.6 X10^3/uL (1.3-2.9); LYMPHOCYTES % (AUTO) 21.6 % (21.0-51.0); MEAN CORPUSCULAR HEMOGLOBIN 30.5 pg (27.0-34.0); MEAN CORPUSCULAR HGB CONC 33.8 g/dL (33.0-35.0); MEAN CORPUSCULAR VOLUME 90.1 fL (80.0-100.0); MEAN PLATELET VOLUME 7.8 fL (7.4-11.0); MONOCYTES # (AUTO) 1.6 x10^3/uL (0.3-0.8); MONOCYTES % (AUTO) 9.8 % (0.0-13.0); NEUTROPHILS # (AUTO) 11.3 x10^3/uL (2.2-4.8); PLATELET COUNT 249 X10^3/uL (150.0-450.0); RED BLOOD COUNT 3.99 X10^6/uL (3.5-5.4); RED CELL DISTRIBUTION WIDTH 14.1 % (11.6-16.5); WHITE BLOOD COUNT 16.7 X10^3/uL (3.6-10.0)
[2020-11-16 11:26] LABS: ALANINE AMINOTRANSFERASE 35 Units/L (12-78); ALBUMIN 3.3 g/dL (3.4-5.0); ALKALINE PHOSPHATASE 100 Units/L (46-116); ASPARTATE AMINO TRANSFERASE 18 Units/L (15-37); BLOOD UREA NITROGEN 11 mg/dL (7-18); CARBON DIOXIDE 31.1 mmol/L (21-32); CHLORIDE 105 mmol/L (98-107); CKMB % 1.7 % (<4); COR CA(FOR HYPOALB) 9.6 mg/dL (8.5-10.1); CREATINE KINASE 58 Units/L (26-192); CREATINE KINASE MB < 1.0 ng/mL (0-4.0); CREATININE 0.62 mg/dL (0.55-1.02); SODIUM 143 mmol/L (136-145); TOTAL PROTEIN 6.6 g/dL (6.4-8.2); TROPONIN I 0.03 ng/mL (0-1.5); eGFR NON BLACK RACES > 60 (>60)
--- NOTE | 2020-11-16 11:30 | RAD ---
HISTORYShortness of breathSTUDYChest AP portableCOMPARISONNoneFINDINGSThe heart is enlarged. No congestive heart failure is noted. No acute alveolar infiltrates or pleural effusions are identified. Bony thorax is unremarkable.IMPRESSIONNo significant abnormality identifiedElectronically signed by: TNOE RHOADES (Nov 16, 2020 11:27:57)
[2020-11-16] MEDS ORDERED: KLOR-CON PO ONE (11:46)
[2020-11-16] MEDS ORDERED: KLOR-CON ONE (11:48)
[2020-11-16] MEDS ORDERED: CATAPRES TAB 0.1 MG ONE ×2 (11:48→12:57)
[2020-11-16] MEDS: CATAPRES TAB 0.1 MG PO ONE ×2 (11:53→13:03)
[2020-11-16] MEDS ORDERED: CATAPRES TAB 0.1 MG PO ONE (12:55)
[2020-11-16] MEDS ORDERED: ZOSYN VIAL 3.375 GRAMS 3.375 G in NS 100 ML IV + SPIKE MINIBAG* 100 ML IV ONE (14:19)
[2020-11-16] MEDS ORDERED: LASIX IVP ONE (14:20)
[2020-11-16] MEDS ORDERED: HumuLIN R IV ONE (14:23)
[2020-11-16 14:30] LABS: CKMB % 2.1 % (<4); CREATINE KINASE 47 Units/L (26-192); CREATINE KINASE MB < 1.0 ng/mL (0-4.0); TROPONIN I 0.04 ng/mL (0-1.5)
[2020-11-16] MEDS ORDERED: K-DUR TAB 20 MEQ PO PRN (17:27)
[2020-11-16] MEDS ORDERED: POTASSIUM CHLORIDE LIQ 20 MEQ UDC PO PRN (17:27)
[2020-11-16] MEDS ORDERED: POTASSIUM CHL 60 MEQ/NS 0.45% 500 ML IV PRN (17:27)
[2020-11-16] MEDS ORDERED: POTASSIUM CHL 40 MEQ/NS 0.45% 500 ML IV PRN (17:27)
[2020-11-16] MEDS ORDERED: MICRO K EXTEN CAP 10 MEQ PO PRN (17:27)
[2020-11-16] MEDS ORDERED: K-RIDER 10 MEQ/NS 100 ML 10 MEQ/100 ML BAG IV PRN (17:27)
[2020-11-16] MEDS ORDERED: KLOR-CON PO PRN (17:27)
[2020-11-16 18:04] LABS: MAGNESIUM 1.7 mg/dL (1.7-2.9)
[2020-11-16] MEDS: MAGNESIUM SULFATE 1 GRAM/100 mL PREMIX 1 GM/100 ML BAG IV PRN ×2 (18:22→19:38)
[2020-11-16] MEDS ORDERED: NS 100 ML IV 100 ML IV ONE (18:24)
[2020-11-16 20:41] LABS: CKMB % 2.4 % (<4); CREATINE KINASE 41 Units/L (26-192); CREATINE KINASE MB < 1.0 ng/mL (0-4.0); TROPONIN I 0.03 ng/mL (0-1.5)
[2020-11-16] MEDS: CATAPRES TAB 0.1 MG PO SCH (21:12)
[2020-11-17 02:14] LABS: BLOOD UREA NITROGEN 13 mg/dL (7-18); CALCIUM 8.5 mg/dL (8.5-10.1); CARBON DIOXIDE 32.8 mmol/L (21-32); CHLORIDE 108 mmol/L (98-107); CREATININE 0.56 mg/dL (0.55-1.02); MAGNESIUM 2.1 mg/dL (1.7-2.9); SODIUM 144 mmol/L (136-145); eGFR NON BLACK RACES > 60 (>60)
[2020-11-17 02:18] LABS: BASOPHILS # (AUTO) 0.1 X10^3/uL (0.0-0.1); BASOPHILS % (AUTO) 0.8 % (0.2-1.0); EOSINOPHILS # (AUTO) 0.1 x10^3/uL (0.0-0.2); EOSINOPHILS % (AUTO) 1.2 % (0.9-2.9); HEMATOCRIT 34.2 % (36.0-47.0); HEMOGLOBIN 11.4 g/dL (12.0-16.0); LYMPHOCYTES # (AUTO) 4.7 X10^3/uL (1.3-2.9); MEAN CORPUSCULAR HEMOGLOBIN 30.4 pg (27.0-34.0); MEAN CORPUSCULAR HGB CONC 33.4 g/dL (33.0-35.0); MEAN CORPUSCULAR VOLUME 90.8 fL (80.0-100.0); MEAN PLATELET VOLUME 7.9 fL (7.4-11.0); MONOCYTES # (AUTO) 0.8 x10^3/uL (0.3-0.8); MONOCYTES % (AUTO) 6.8 % (0.0-13.0); NEUTROPHILS # (AUTO) 5.6 x10^3/uL (2.2-4.8); NEUTROPHILS % (AUTO) 49.2 % (42.0-75.0); PLATELET COUNT 220 X10^3/uL (150.0-450.0); RED BLOOD COUNT 3.76 X10^6/uL (3.5-5.4); RED CELL DISTRIBUTION WIDTH 14.3 % (11.6-16.5); WHITE BLOOD COUNT 11.3 X10^3/uL (3.6-10.0)
[2020-11-17 02:28] LABS: CKMB % 2.6 % (<4); CREATINE KINASE 38 Units/L (26-192); CREATINE KINASE MB < 1.0 ng/mL (0-4.0); TROPONIN I 0.03 ng/mL (0-1.5)
[2020-11-17] MEDS: CATAPRES TAB 0.1 MG PO SCH ×2 (03:35→09:05)
[2020-11-17 08:21] VITALS: BP 158/69
[2020-11-17] MEDS ORDERED: ASPIRIN PO SCH (09:00)
[2020-11-17] MEDS ORDERED: COREG TAB 6.25 MG PO SCH (10:00)
[2020-11-17] MEDS ORDERED: NEURONTIN CAP 400 MG PO SCH (10:00)
[2020-11-17] MEDS ORDERED: PROTONIX TAB 40 MG PO SCH (10:00)
--- NOTE | 2020-11-17 10:19 | DR.SSS ---
SHORT STAY SUMMARY Admission Date Date of Admission: 11/16/20 Discharge Date Discharge Date: 11/17/20 Admission Diagnoses Admission Diagnoses: Accelerated hypertension Chest pain rule out Sinus congestion GERD Atrial fibrillation Discharge Diagnoses Discharge Diagnoses: Accelerated hypertension Chest pain rule out Sinus congestion GERD Atrial fibrillation Chief Complaint Chief Complaint: chest pain, elevated BP History of Present Illness History of Present Illness: Ms. Pillai is a 75y/o female presented with chest pain. She states her BP has been elevated for the past couple days. SHe was being treated for sinusitis/bronchitis outpatient and has received doses of antibiotics and steroid shots. She states she recently got a steroid shot and since then her BP was high. Denies headache, N/V or blurry vision. She had inte rmittent chest pain radiating to her neck. She was admitted for chest pain rule out and blood pressure management. Past Medical History Past Medical History: Anxiety, Dyslipidemia and Hypertension Past Surgical History Surgical History: Hysterectomy and Ortho Surgery Allergies Allergies Allergy/AdvReac Type Severity Reaction Status Date / Time ketorolac Allergy Mild Verified 01/06/20 11:28 nitrofurantoin Allergy Verified 01/06/20 11:28 [From Macrodantin] phenytoin Allergy Verified 01/06/20 11:28 Sulfa (Sulfonamide Allergy Verified 01/06/20 11:28 Antibiotics) [SULFA] Medications Home Medications: ketorolac Allergy (Mild, Verified 01/06/20 11:28) nitrofurantoin [From Macrodantin] Allergy (Verified 01/06/20 11:28) phenytoin Allergy (Verified 01/06/20 11:28) Sulfa (Sulfonamide Antibiotics) [SULFA] Allergy (Verified 01/06/20 11:28) CONTINUE taking the following medications atorvastatin 80 mg PO HS 11/16/20 [History] carvedilol 6.25 mg PO BID 11/16/20 [History] ergocalciferol (vitamin D2) [Vitamin D2] 1,250 mcg PO .WEEKLY 11/16/20 [History] gabapentin 800 mg PO BID 11/16/20 [History] hydrochlorothiazide 12.5 mg PO DAILY 11/16/20 [History] latanoprost 1 drp OPHTHALMIC (EYE) HS 11/16/20 [History] levofloxacin 500 mg PO DAILY 11/16/20 [History] losartan 100 mg PO DAILY 11/16/20 [History] methylprednisolone 4 mg PO DAILY MDD 6 11/16/20 [History] ondansetron HCl 4 mg PO Q4-6H PRN 11/16/20 [History] pantoprazole 40 mg PO DAILY 11/16/20 [History] paroxetine HCl 20 mg PO DAILY 11/16/20 [History] warfarin 4 mg PO .THU,THU,THU,SAT,SUN 11/16/20 [History] warfarin 6 mg PO .THURSDAY AND Thursday11/16/20 [History] Family History Family Medical History: Heart Failure and Hypertension Social History Does patient currently use any type of tobacco product: No Have you used tobacco products in the last 12 months: No Does any household member use tobacco: No Alcohol Use: None Drug Use: None Review of Systems Constitutional: No Symptoms Reported Eyes: No Symptoms Reported ENT: No Symptoms Reported Respiratory: Cough Cardiovascular: Chest Pain Gastrointestinal: No Symptoms Reported Genitourinary: No Symptoms Reported Musculoskeletal: No Symptoms Reported Skin: No Symptoms Reported Neurological: No Symptoms Reported Physical Exam Vital Signs: Last Vital Signs Temp 97.3 F L 11/17/20 08:00 Pulse 60 11/17/20 08:00 Resp 18 11/17/20 08:00 BP 158/69 11/17/20 08:00 Pulse Ox 96 11/17/20 08:00 Oriented: Normal Eyes: Normal Ear: Normal Nose: Normal Throat: Normal Respiratory: Clear Throughout Cardiovascular: Normal Auscultation: Bowel Sounds: Normal Tenderness: Normal Skin: Normal Musculoskeletal: Normal Psychiatric: Normal Mood Description: Calm Affect: Normal Speech Pattern: Clear and Appropriate Labs Labs: Laboratory Last Values WBC 11.3 X10^3/uL (3.6-10.0) H 11/17/20 01:56 RBC 3.76 X10^6/uL (3.5-5.4) 11/17/20 01:56 Hgb 11.4 g/dL (12.0-16.0) L 11/17/20 01:56 Hct 34.2 % (36.0-47.0) L 11/17/20 01:56 MCV 90.8 fL (80.0-100.0) 11/17/20 01:56 MCH 30.4 pg (27.0-34.0) 11/17/20 01:56 MCHC 33.4 g/dL (33.0-35.0) 11/17/20 01:56 RDW 14.3 % (11.6-16.5) 11/17/20 01:56 Plt Count 220 X10^3/uL (150.0-450.0) 11/17/20 01:56 MPV 7.9 fL (7.4-11.0) 11/17/20 01:56 Neut % (Auto) 49.2 % (42.0-75.0) 11/17/20 01:56 Lymph % (Auto) 42.0 % (21.0-51.0) 11/17/20 01:56 [place] % (Auto) 6.8 % (0.0-13.0) 11/17/20 01:56 Eos % (Auto) 1.2 % (0.9-2.9) 11/17/20 01:56 Baso % (Auto) 0.8 % (0.2-1.0) 11/17/20 01:56 Neut # (Auto) 5.6 x10^3/uL (2.2-4.8) H 11/17/20 01:56 Lymph # (Auto) 4.7 X10^3/uL (1.3-2.9) H 11/17/20 01:56 [place] # (Auto) 0.8 x10^3/uL (0.3-0.8) 11/17/20 01:56 Eos # (Auto) 0.1 x10^3/uL (0.0-0.2) 11/17/20 01:56 Baso # (Auto) 0.1 X10^3/uL (0.0-0.1) 11/17/20 01:56 Absolute Nucleated RBC 0.1 /100WBC 11/17/20 01:56 PT 27.1 SECONDS (11.8-14.3) 11/17/20 01:56 INR Target Range - 11/17/20 01:56 INR 2.66 (0.8-1.3) H 11/17/20 01:56 APTT 31.0 SECONDS (22.9-36.5) 11/16/20 10:55 PTT Comment - 11/16/20 10:55 Sodium 144 mmol/L (136-145) 11/17/20 01:56 Corrected Sodium TNP 11/17/20 01:56 Potassium 3.9 mmol/L (3.5-5.1) 11/17/20 01:56 Chloride 108 mmol/L (98-107) H 11/17/20 01:56 Carbon Dioxide 32.8 mmol/L (21-32) H 11/17/20 01:56 BUN 13 mg/dL (7-18) 11/17/20 01:56 Creatinine 0.56 mg/dL (0.55-1.02) 11/17/20 01:56 Est GFR (MDRD) Af Amer > 60 (>60) 11/17/20 01:56 Est GFR (MDRD) Non-Af > 60 (>60) 11/17/20 01:56 Glucose 102 mg/dL (65-99) H 11/17/20 01:56 Calcium 8.5 mg/dL (8.5-10.1) 11/17/20 01:56 Corrected Calcium 9.6 mg/dL (8.5-10.1) 11/16/20 10:55 Magnesium 2.1 mg/dL (1.7-2.9) 11/17/20 01:56 Total Bilirubin 0.40 mg/dL (0.2-1.0) 11/16/20 10:55 AST 18 Units/L (15-37) 11/16/20 10:55 ALT 35 Units/L (12-78) 11/16/20 10:55 Alkaline Phosphatase 100 Units/L (46-116) 11/16/20 10:55 Creatine Kinase 38 Units/L (26-192) 11/17/20 01:56 CK-MB (CK-2) < 1.0 ng/mL (0-4.0) 11/17/20 01:56 CK/CKMB % Calc 2.6 % (<4) 11/17/20 01:56 Troponin I 0.03 ng/mL (0-1.5) 11/17/20 01:56 B-Natriuretic Peptide 124 pg/mL (0-79) H 11/16/20 10:55 Total Protein 6.6 g/dL (6.4-8.2) 11/16/20 10:55 Albumin 3.3 g/dL (3.4-5.0) L 11/16/20 10:55 Globulin 3.3 g/dL (2.5-4.5) 11/16/20 10:55 Albumin/Globulin Ratio 1.0 Ratio (1.1-2.1) L 11/16/20 10:55 Hospital Course Hospital Course: Patient was admitted for chest pain rule out BP management. Patient was admitted to [facility] with telemetry. Her cardiac enzymes were trended and remained negative. EKG did not show any acute ST changes. Patient was given a dose of clonidine and lasix in the ER. Her BP did come down. Labs showed potassium of 2.9, she was started on potassium replacement. Patient did not have any further episodes of chest pain. She was stable for discharge and will f/u with PCP as scheduled. Discharge Medications Discharge Medications: Home Medication List atorvastatin 80 mg PO HS 11/16/20 [History] carvedilol 6.25 mg PO BID 11/16/20 [History] ergocalciferol (vitamin D2) [Vitamin D2] 1,250 mcg PO .WEEKLY 11/16/20 [History] gabapentin 800 mg PO BID 11/16/20 [History] hydrochlorothiazide 12.5 mg PO DAILY 11/16/20 [History] latanoprost 1 drp OPHTHALMIC (EYE) HS 11/16/20 [History] levofloxacin 500 mg PO DAILY 11/16/20 [History] losartan 100 mg PO DAILY 11/16/20 [History] methylprednisolone 4 mg PO DAILY MDD 6 11/16/20 [History] ondansetron HCl 4 mg PO Q4-6H PRN 11/16/20 [History] pantoprazole 40 mg PO DAILY 11/16/20 [History] paroxetine HCl 20 mg PO DAILY 11/16/20 [History] warfarin 4 mg PO .THU,THU,THU,SAT,SUN 11/16/20 [History] warfarin 6 mg PO .THURSDAY AND Thursday11/16/20 [History] Prescriptions: Discharge Disposition Discharge Disposition: Home
[2020-11-17] MEDS ORDERED: LIPITOR TAB 80 MG PO SCH (21:00)
[2020-11-17] MEDS ORDERED: XALATAN OP SCH (21:00)
[2020-11-18] MEDS ORDERED: HYDROCHLOROTHIAZIDE 12.5 MG CAP PO SCH (09:00)
[2020-11-18] MEDS ORDERED: PAXIL PO SCH (09:00)
== END 2020-11-17 11:58 | disposition home or self-care (01) ==
LOC: ER 10:22 → MED/SURG 10:22
PROVIDERS: ADMIT Internal Medicine; ATTEND Internal Medicine
DX: R07.89 Other chest pain; R79.1 Abnormal coagulation profile; R94.31 Abnormal electrocardiogram [ECG] [EKG]; Z79.899 Other long term (current) drug therapy; E78.2 Mixed hyperlipidemia; I10 Essential (primary) hypertension; E87.6 Hypokalemia; R19.7 Diarrhea, unspecified

== ENCOUNTER 2024-10-10 15:46 | Observation (INO) ==
[2024-10-10 18:30] LABS: BASOPHILS # (AUTO) 0.4 X10^3/uL (0.0-0.1); BASOPHILS % (AUTO) 3.6 % (0.2-1.0); EOSINOPHILS # (AUTO) 0.2 x10^3/uL (0.0-0.2); EOSINOPHILS % (AUTO) 1.6 % (0.9-2.9); HEMATOCRIT 37.5 % (36.0-47.0); HEMOGLOBIN 12.6 g/dL (12.0-16.0); LYMPHOCYTES # (AUTO) 2.3 X10^3/uL (1.3-2.9); LYMPHOCYTES % (AUTO) 23.5 % (21.0-51.0); MEAN CORPUSCULAR HEMOGLOBIN 30.4 pg (27.0-34.0); MEAN CORPUSCULAR HGB CONC 33.6 g/dL (33.0-35.0); MEAN CORPUSCULAR VOLUME 90.6 fL (80.0-100.0); MEAN PLATELET VOLUME 7.7 fL (7.4-11.0); MONOCYTES # (AUTO) 0.8 x10^3/uL (0.3-0.8); MONOCYTES % (AUTO) 8.4 % (0.0-13.0); NEUTROPHILS # (AUTO) 6.2 x10^3/uL (2.2-4.8); NEUTROPHILS % (AUTO) 62.9 % (42.0-75.0); PLATELET COUNT 239 X10^3/uL (150.0-450.0); RED BLOOD COUNT 4.15 X10^6/uL (3.5-5.4); RED CELL DISTRIBUTION WIDTH 15.4 % (11.6-16.5); WHITE BLOOD COUNT 9.9 X10^3/uL (3.6-10.0)
[2024-10-10 18:33] VITALS: BMI 38.0
[2024-10-10 18:43] LABS: INR 2.63 (0.8-1.3)
[2024-10-10 18:48] LABS: ALANINE AMINOTRANSFERASE 25 Units/L (12-78); ALBUMIN 3.4 g/dL (3.4-5.0); ALKALINE PHOSPHATASE 109 Units/L (46-116); ASPARTATE AMINO TRANSFERASE 18 Units/L (15-37); BLOOD UREA NITROGEN 17 mg/dL (7-18); CALCIUM 8.9 mg/dL (8.5-10.1); CARBON DIOXIDE 32.1 mmol/L (21-32); CHLORIDE 101 mmol/L (98-107); COR NA(FOR HYPERGLY) 140 mmol/L (136-145); CREATININE 0.84 mg/dL (0.55-1.02); GLUCOSE 112 mg/dL (65-99); POTASSIUM 3.2 mmol/L (3.5-5.1); SODIUM 140 mmol/L (136-145); eGFR NON BLACK RACES > 60 (>60)
[2024-10-10] MEDS: NS 250 ML IV 250 ML IV ONE (20:10)
[2024-10-10] MEDS: VANCOMYCIN IV *PREMIX 1 G/200 ML BAG 1 G/200 ML PIGGYBACK IV SCH (20:11)
[2024-10-11 06:10] LABS: BASOPHILS % (AUTO) 0.2 % (0.2-1.0); EOSINOPHILS # (AUTO) 0.1 x10^3/uL (0.0-0.2); EOSINOPHILS % (AUTO) 1.5 % (0.9-2.9); HEMATOCRIT 35.7 % (36.0-47.0); HEMOGLOBIN 12.2 g/dL (12.0-16.0); LYMPHOCYTES # (AUTO) 2.5 X10^3/uL (1.3-2.9); LYMPHOCYTES % (AUTO) 28.9 % (21.0-51.0); MEAN CORPUSCULAR HEMOGLOBIN 30.8 pg (27.0-34.0); MEAN CORPUSCULAR HGB CONC 34.2 g/dL (33.0-35.0); MEAN CORPUSCULAR VOLUME 90.2 fL (80.0-100.0); MEAN PLATELET VOLUME 8.6 fL (7.4-11.0); MONOCYTES % (AUTO) 11.2 % (0.0-13.0); NEUTROPHILS % (AUTO) 58.2 % (42.0-75.0); PLATELET COUNT 206 X10^3/uL (150.0-450.0); RED BLOOD COUNT 3.96 X10^6/uL (3.5-5.4); RED CELL DISTRIBUTION WIDTH 15.3 % (11.6-16.5); WHITE BLOOD COUNT 8.5 X10^3/uL (3.6-10.0)
[2024-10-11 06:40] LABS: ALANINE AMINOTRANSFERASE 28 Units/L (12-78); ALBUMIN 3.1 g/dL (3.4-5.0); ALKALINE PHOSPHATASE 102 Units/L (46-116); ASPARTATE AMINO TRANSFERASE 22 Units/L (15-37); BLOOD UREA NITROGEN 16 mg/dL (7-18); CALCIUM 8.9 mg/dL (8.5-10.1); CARBON DIOXIDE 28.7 mmol/L (21-32); CHLORIDE 102 mmol/L (98-107); COR CA(FOR HYPOALB) 9.6 mg/dL (8.5-10.1); CREATININE 0.56 mg/dL (0.55-1.02); GLUCOSE 101 mg/dL (65-99); MAGNESIUM 1.9 mg/dL (2.0-2.9); POTASSIUM 3.4 mmol/L (3.5-5.1); SODIUM 140 mmol/L (136-145); TOTAL PROTEIN 6.5 g/dL (6.4-8.2); eGFR NON BLACK RACES > 60 (>60)
[2024-10-11] MEDS ORDERED: CONSULT PHARMACY - POTASSIUM & MAGNESIUM XX SCH (07:00)
[2024-10-11] MEDS: VANCOMYCIN IV *PREMIX 1 G/200 ML BAG 1 G/200 ML PIGGYBACK IV SCH (08:23)
[2024-10-11] MEDS: K-DUR TAB 20 MEQ PO SCH (08:23)
[2024-10-11] MEDS: MAG-OX TAB PO SCH (08:23)
[2024-10-11] MEDS: SINGULAIR TAB 10 MG PO SCH (09:43)
[2024-10-11] MEDS: NEURONTIN CAP 400 MG PO SCH (09:43)
[2024-10-11] MEDS: EXELON PO SCH (09:43)
[2024-10-11] MEDS: CELEXA PO SCH (09:43)
[2024-10-11] MEDS: VITAMIN D3 25 mcg (1,000 UNITS) PO SCH (09:43)
[2024-10-11] MEDS: PAXIL PO SCH (09:43)
[2024-10-11] MEDS: PROTONIX TAB 40 MG PO SCH (09:44)
[2024-10-11] MEDS: HYDROCHLOROTHIAZIDE 25 MG TAB PO SCH (09:44)
[2024-10-11] MEDS: COZAAR PO SCH (09:44)
[2024-10-11] MEDS: NORVASC TAB 2.5 MG PO SCH (09:44)
[2024-10-11] MEDS: COREG TAB 12.5 MG PO SCH (09:44)
[2024-10-11] MEDS: NORCO 7.5/325 MG TAB PO PRN (09:45)
[2024-10-11] MEDS: LOVENOX INJ 40 MG SYR SC SCH (09:53)
[2024-10-11] MEDS: DIFLUCAN 100 MG IV (MIX by PHARMACY)* 100 MG/50 ML BAG IV SCH (09:57)
--- NOTE | 2024-10-11 10:38 | DR.H&P ---
H&P History & Physical for Day of: H&P Date: 10/11/24 Chief Complaint Chief Complaint: cellulitis, abscess History of Present Illness History of Present Illness: Ms Pillai is a 79y/o female with a PMH of HTN, HLD, GERD, hx of PE on warfarin presented with multiple small abscesses on the abdomen along with pelvic area that she noticed few days ago. She was seen in the office yesterday and directly admitted for IV antibiotics. She states initially it started as a small red area and then had drainage coming out. She has a big size collection near the vaginal area. She was started on IV vancomycin and fluconazole. Dr Block has been consulted. Labs/imaging reviewed: -WBC 8.5 Hgb 12.2 K 3.4 Mag 1.9 -INR 2.63 -Wound Cx: coag + staph Plan: continue wound care. Follow surgery recommendations. Continue IV antibiotics, follow final cultures. Patient reports having some itching in her head after she got the antibiotics yesterday. She does have a long list of drug allergies. Will add benadryl, continue to monitor. Resume home medications. Hold warfarin for now and see if Dr Block plans to do I&D. Replace electrolytes as per protocol. Monitor AM labs/imaging. Past Medical History Past Medical History: Arthritis, CVA and Hypertension Past Surgical History Surgical History: Hysterectomy Family History Family Medical History: Diabetes Mellitus and Hypertension Social History Does any household member use tobacco: No Alcohol Use: None Drug Use: None Medications Home Medications: Home Medications Medication Instructions Recorded Confirmed Type cholecalciferol (vitamin D3) 50 50 mcg PO QDAY 07/22/24 10/10/24 History mcg (2,000 unit) capsule citalopram 10 mg tablet 10 mg PO DAILY 08/07/24 10/10/24 History Allergies Allergies Allergy/AdvReac Type Severity Reaction Status Date / Time ketorolac Allergy Mild Verified 08/07/24 10:39 clindamycin Allergy RASH Verified 08/07/24 10:39 nitrofurantoin Allergy Verified 08/07/24 10:39 [From Macrodantin] phenytoin Allergy Verified 08/07/24 10:39 Sulfa (Sulfonamide Allergy Verified 08/07/24 10:39 Antibiotics) [SULFA] sulfamethoxazole Allergy Verified 08/07/24 10:39 [From Bactrim] trimethoprim [From Bactrim] Allergy Verified 08/07/24 10:39 Labs 10/11/24 05:23 10/11/24 05:23 Labs: Laboratory WBC 8.5 X10^3/uL (3.6-10.0) 10/11/24 05:23 RBC 3.96 X10^6/uL (3.5-5.4) 10/11/24 05:23 Hgb 12.2 g/dL (12.0-16.0) 10/11/24 05:23 Hct 35.7 % (36.0-47.0) L 10/11/24 05:23 MCV 90.2 fL (80.0-100.0) 10/11/24 05:23 MCH 30.8 pg (27.0-34.0) 10/11/24 05:23 MCHC 34.2 g/dL (33.0-35.0) 10/11/24 05:23 RDW 15.3 % (11.6-16.5) 10/11/24 05:23 Plt Count 206 X10^3/uL (150.0-450.0) 10/11/24 05:23 MPV 8.6 fL (7.4-11.0) 10/11/24 05:23 Neut % (Auto) 58.2 % (42.0-75.0) 10/11/24 05:23 Lymph % (Auto) 28.9 % (21.0-51.0) 10/11/24 05:23 [place] % (Auto) 11.2 % (0.0-13.0) 10/11/24 05:23 Eos % (Auto) 1.5 % (0.9-2.9) 10/11/24 05:23 Baso % (Auto) 0.2 % (0.2-1.0) 10/11/24 05:23 Neut # (Auto) 5.0 x10^3/uL (2.2-4.8) H 10/11/24 05:23 Lymph # (Auto) 2.5 X10^3/uL (1.3-2.9) 10/11/24 05:23 [place] # (Auto) 1.0 x10^3/uL (0.3-0.8) H 10/11/24 05:23 Eos # (Auto) 0.1 x10^3/uL (0.0-0.2) 10/11/24 05:23 Baso # (Auto) 0.0 X10^3/uL (0.0-0.1) 10/11/24 05:23 Absolute Nucleated RBC 0.1 /100WBC 10/11/24 05:23 PT 27.2 SECONDS (11.8-14.3) 10/10/24 18:20 INR Target Range - 10/10/24 18:20 INR 2.63 (0.8-1.3) H 10/10/24 18:20 APTT 36.8 SECONDS (22.9-36.5) H 10/10/24 18:20 PTT Comment - 10/10/24 18:20 Sodium 140 mmol/L (136-145) 10/11/24 05:23 Corrected Sodium TNP 10/11/24 05:23 Potassium 3.4 mmol/L (3.5-5.1) L 10/11/24 05:23 Chloride 102 mmol/L (98-107) 10/11/24 05:23 Carbon Dioxide 28.7 mmol/L (21-32) 10/11/24 05:23 BUN 16 mg/dL (7-18) 10/11/24 05:23 Creatinine 0.56 mg/dL (0.55-1.02) 10/11/24 05:23 Est GFR (MDRD) Af Amer > 60 (>60) 10/11/24 05:23 Est GFR (MDRD) Non-Af > 60 (>60) 10/11/24 05:23 Glucose 101 mg/dL (65-99) H 10/11/24 05:23 Calcium 8.9 mg/dL (8.5-10.1) 10/11/24 05:23 Corrected Calcium 9.6 mg/dL (8.5-10.1) 10/11/24 05:23 Magnesium 1.9 mg/dL (2.0-2.9) L 10/11/24 05:23 Total Bilirubin 0.50 mg/dL (0.2-1.0) 10/11/24 05:23 AST 22 Units/L (15-37) 10/11/24 05:23 ALT 28 Units/L (12-78) 10/11/24 05:23 Alkaline Phosphatase 102 Units/L (46-116) 10/11/24 05:23 Total Protein 6.5 g/dL (6.4-8.2) 10/11/24 05:23 Albumin 3.1 g/dL (3.4-5.0) L 10/11/24 05:23 Globulin 3.4 g/dL (2.5-4.5) 10/11/24 05:23 Albumin/Globulin Ratio 0.9 Ratio (1.1-2.1) L 10/11/24 05:23 Review of Systems Constitutional: Weakness Eyes: No Symptoms Reported ENT: No Symptoms Reported Respiratory: No Symptoms Reported Cardiovascular: No Symptoms Reported Gastrointestinal: No Symptoms Reported Genitourinary: No Symptoms Reported Musculoskeletal: No Symptoms Reported Skin: Rash, Lesions and Wound Neurological: No Symptoms Reported Physical Exam Vital Signs: Vital Signs Temperature 97.9 F Temperature 98.3 F Pulse Rate [Right Radial] 79 Pulse Rate [Right Radial] 87 Respiratory Rate 20 Respiratory Rate 20 Respiratory Rate 20 Blood Pressure [Right Arm] 156/68 Blood Pressure [Right Arm] 150/68 O2 Sat by Pulse Oximetry 96 O2 Sat by Pulse Oximetry 95 Oriented: Normal Eyes: Normal Nose: Normal Throat: Normal Respiratory: Clear Throughout Cardiovascular: Normal Auscultation: Bowel Sounds: Normal Palpation: Normal Tenderness: Normal Skin: Tender, Wound and Other (multiple small pus like collections, large in the pelvic/vaginal area, purulent drainage noted ) Musculoskeletal: Motor Deficit Psychiatric: Normal Mood Description: Calm Affect: Normal Speech Pattern: Clear and Appropriate Assessment/Plan (1) Abscess: Status: Acute (2) Yeast infection of the skin: Status: Acute (3) Hypokalemia: Status: Acute (4) Hypomagnesemia: Status: Acute (5) History of pulmonary embolism: Status: Chronic (6) GERD (gastroesophageal reflux disease): Qualifiers: Esophagitis presence: esophagitis presence not specified Qualified Code(s): K21.9 - Gastro-esophageal reflux disease without esophagitis Status: Chronic (7) Hypertension: Qualifiers: Hypertension type: essential hypertension Qualified Code(s): I10 - Essential (primary) hypertension Status: Chronic
--- NOTE | 2024-10-11 16:43 | DR.PROGNOT ---
HOSPITAL PROGRESS NOTE Progress Note for Day of: Progress Note Date: 10/11/24 Chief Complaint Chief Complaint: Still complaining of pain of the lower abdominal wall with only mild drainage. First culture is showing coag positive staph. WBC is 8.3 hemoglobin 12.2, INR 2.6, potassium 3.4, BUN/creatinine are normal, blood sugar 101, urinalysis showed 2+ bacteria Patient is afebrile with soft abdomen and large area of erythema involving the lower abdominal wall, no fluctuation or abscess formation. Past Medical Family Social History Allergies: Allergies ketorolac Allergy (Mild, Verified 08/07/24 10:39) clindamycin Allergy (Verified 08/07/24 10:39) RASH nitrofurantoin [From Macrodantin] Allergy (Verified 08/07/24 10:39) phenytoin Allergy (Verified 08/07/24 10:39) Sulfa (Sulfonamide Antibiotics) [SULFA] Allergy (Verified 08/07/24 10:39) sulfamethoxazole [From Bactrim] Allergy (Verified 08/07/24 10:39) trimethoprim [From Bactrim] Allergy (Verified 08/07/24 10:39) Vital Signs Vital Signs: Vital Signs Temperature 98.5 F Pulse Rate [Right Radial] 66 Respiratory Rate 20 Respiratory Rate 20 Respiratory Rate 20 Blood Pressure [Right Arm] 118/57 O2 Sat by Pulse Oximetry 94 Physical Exam Oriented: Normal Eyes: Normal Ear: Normal Nose: Normal Throat: Normal Cardiovascular: Normal GI:Auscultation: Normal GI:Palpation: Normal GI: Tenderness: Normal Skin: Tender, Wound and Other (multiple small pus like collections, large in the pelvic/vaginal area, purulent drainage noted ) Musculoskeletal: Motor Deficit Psychiatric: Normal Mood Description: Calm Affect: Normal Speech Pattern: Clear and Appropriate Laboratory and Diagnostics 10/11/24 05:23 10/11/24 05:23 Labs: Laboratory WBC 8.5 X10^3/uL (3.6-10.0) 10/11/24 05:23 RBC 3.96 X10^6/uL (3.5-5.4) 10/11/24 05:23 Hgb 12.2 g/dL (12.0-16.0) 10/11/24 05:23 Hct 35.7 % (36.0-47.0) L 10/11/24 05:23 MCV 90.2 fL (80.0-100.0) 10/11/24 05:23 MCH 30.8 pg (27.0-34.0) 10/11/24 05:23 MCHC 34.2 g/dL (33.0-35.0) 10/11/24 05:23 RDW 15.3 % (11.6-16.5) 10/11/24 05:23 Plt Count 206 X10^3/uL (150.0-450.0) 10/11/24 05:23 MPV 8.6 fL (7.4-11.0) 10/11/24 05:23 Neut % (Auto) 58.2 % (42.0-75.0) 10/11/24 05:23 Lymph % (Auto) 28.9 % (21.0-51.0) 10/11/24 05:23 [place] % (Auto) 11.2 % (0.0-13.0) 10/11/24 05:23 Eos % (Auto) 1.5 % (0.9-2.9) 10/11/24 05:23 Baso % (Auto) 0.2 % (0.2-1.0) 10/11/24 05:23 Neut # (Auto) 5.0 x10^3/uL (2.2-4.8) H 10/11/24 05:23 Lymph # (Auto) 2.5 X10^3/uL (1.3-2.9) 10/11/24 05:23 [place] # (Auto) 1.0 x10^3/uL (0.3-0.8) H 10/11/24 05:23 Eos # (Auto) 0.1 x10^3/uL (0.0-0.2) 10/11/24 05:23 Baso # (Auto) 0.0 X10^3/uL (0.0-0.1) 10/11/24 05:23 Absolute Nucleated RBC 0.1 /100WBC 10/11/24 05:23 PT 27.2 SECONDS (11.8-14.3) 10/10/24 18:20 INR Target Range - 10/10/24 18:20 INR 2.63 (0.8-1.3) H 10/10/24 18:20 APTT 36.8 SECONDS (22.9-36.5) H 10/10/24 18:20 PTT Comment - 10/10/24 18:20 Sodium 140 mmol/L (136-145) 10/11/24 05:23 Corrected Sodium TNP 10/11/24 05:23 Potassium 3.4 mmol/L (3.5-5.1) L 10/11/24 05:23 Chloride 102 mmol/L (98-107) 10/11/24 05:23 Carbon Dioxide 28.7 mmol/L (21-32) 10/11/24 05:23 BUN 16 mg/dL (7-18) 10/11/24 05:23 Creatinine 0.56 mg/dL (0.55-1.02) 10/11/24 05:23 Est GFR (MDRD) Af Amer > 60 (>60) 10/11/24 05:23 Est GFR (MDRD) Non-Af > 60 (>60) 10/11/24 05:23 Glucose 101 mg/dL (65-99) H 10/11/24 05:23 Calcium 8.9 mg/dL (8.5-10.1) 10/11/24 05:23 Corrected Calcium 9.6 mg/dL (8.5-10.1) 10/11/24 05:23 Magnesium 1.9 mg/dL (2.0-2.9) L 10/11/24 05:23 Total Bilirubin 0.50 mg/dL (0.2-1.0) 10/11/24 05:23 AST 22 Units/L (15-37) 10/11/24 05:23 ALT 28 Units/L (12-78) 10/11/24 05:23 Alkaline Phosphatase 102 Units/L (46-116) 10/11/24 05:23 Total Protein 6.5 g/dL (6.4-8.2) 10/11/24 05:23 Albumin 3.1 g/dL (3.4-5.0) L 10/11/24 05:23 Globulin 3.4 g/dL (2.5-4.5) 10/11/24 05:23 Albumin/Globulin Ratio 0.9 Ratio (1.1-2.1) L 10/11/24 05:23 Assessment and Plan 1: Cellulitis of abdominal wall with positive culture for coag positive staph. Same IV vancomycin and will reevaluate the skin condition in the morning for possible more debridement. 2: UTI, same IV antibiotics. 3: Candidiasis, patient is on IV Diflucan.
[2024-10-11] MEDS: LIPITOR TAB 80 MG PO SCH (20:41)
[2024-10-12] MEDS: HIBICLENS WASH EXT ONE (05:11)
[2024-10-12 06:06] LABS: BASOPHILS # (AUTO) 0.1 X10^3/uL (0.0-0.1); BASOPHILS % (AUTO) 1.6 % (0.2-1.0); EOSINOPHILS # (AUTO) 0.1 x10^3/uL (0.0-0.2); EOSINOPHILS % (AUTO) 1.7 % (0.9-2.9); HEMATOCRIT 33.5 % (36.0-47.0); HEMOGLOBIN 11.7 g/dL (12.0-16.0); LYMPHOCYTES # (AUTO) 2.3 X10^3/uL (1.3-2.9); LYMPHOCYTES % (AUTO) 32.6 % (21.0-51.0); MEAN CORPUSCULAR HEMOGLOBIN 31.3 pg (27.0-34.0); MEAN CORPUSCULAR HGB CONC 34.9 g/dL (33.0-35.0); MEAN CORPUSCULAR VOLUME 89.8 fL (80.0-100.0); MONOCYTES # (AUTO) 0.7 x10^3/uL (0.3-0.8); MONOCYTES % (AUTO) 10.3 % (0.0-13.0); NEUTROPHILS # (AUTO) 3.7 x10^3/uL (2.2-4.8); NEUTROPHILS % (AUTO) 53.8 % (42.0-75.0); PLATELET COUNT 212 X10^3/uL (150.0-450.0); RED BLOOD COUNT 3.73 X10^6/uL (3.5-5.4); RED CELL DISTRIBUTION WIDTH 15.3 % (11.6-16.5); WHITE BLOOD COUNT 6.9 X10^3/uL (3.6-10.0)
[2024-10-12 06:19] LABS: ALANINE AMINOTRANSFERASE 24 Units/L (12-78); ALBUMIN 2.9 g/dL (3.4-5.0); ALKALINE PHOSPHATASE 96 Units/L (46-116); ASPARTATE AMINO TRANSFERASE 18 Units/L (15-37); BLOOD UREA NITROGEN 14 mg/dL (7-18); CALCIUM 8.7 mg/dL (8.5-10.1); CARBON DIOXIDE 28.9 mmol/L (21-32); CHLORIDE 104 mmol/L (98-107); COR CA(FOR HYPOALB) 9.6 mg/dL (8.5-10.1); COR NA(FOR HYPERGLY) 140 mmol/L (136-145); CREATININE 0.58 mg/dL (0.55-1.02); GLUCOSE 120 mg/dL (65-99); MAGNESIUM 1.7 mg/dL (2.0-2.9); POTASSIUM 3.5 mmol/L (3.5-5.1); SODIUM 140 mmol/L (136-145); TOTAL PROTEIN 6.1 g/dL (6.4-8.2); eGFR NON BLACK RACES > 60 (>60)
[2024-10-12 06:26] LABS: INR 2.48 (0.8-1.3)
[2024-10-12] MEDS ORDERED: CONSULT PHARMACY - POTASSIUM & MAGNESIUM XX SCH ×2 (07:00→08:00)
--- NOTE | 2024-10-12 08:02 | DR.PROGNOT ---
HOSPITAL PROGRESS NOTE Progress Note for Day of: Progress Note Date: 10/12/24 Chief Complaint Chief Complaint: less pain and only mild drainage . First culture is showing coag positive staph. WBC is 8.9hemoglobin 12.2, INR 2.6, potassium 3.4, BUN/creatinine are normal, blood sugar 101, urinalysis showed 2+ bacteria Patient is afebrile with soft abdomen and large area of erythema involving the lower abdominal wall, no fluctuation or abscess formation. Past Medical Family Social History Allergies: Allergies ketorolac Allergy (Mild, Verified 08/07/24 10:39) clindamycin Allergy (Verified 08/07/24 10:39) RASH nitrofurantoin [From Macrodantin] Allergy (Verified 08/07/24 10:39) phenytoin Allergy (Verified 08/07/24 10:39) Sulfa (Sulfonamide Antibiotics) [SULFA] Allergy (Verified 08/07/24 10:39) sulfamethoxazole [From Bactrim] Allergy (Verified 08/07/24 10:39) trimethoprim [From Bactrim] Allergy (Verified 08/07/24 10:39) Vital Signs Vital Signs: Vital Signs Temperature 98.5 F Temperature 98.6 F Pulse Rate [Right Radial] 75 Pulse Rate [Right Radial] 75 Respiratory Rate 20 Respiratory Rate 20 Blood Pressure [Right Arm] 138/65 Blood Pressure [Right Arm] 180/89 O2 Sat by Pulse Oximetry 96 O2 Sat by Pulse Oximetry 94 Physical Exam Oriented: Normal Eyes: Normal Ear: Normal Nose: Normal Throat: Normal Cardiovascular: Normal GI:Auscultation: Normal GI:Palpation: Normal GI: Tenderness: Normal Skin: Tender and Other (lower abdominal wall erythema 10 x8 cm with open wounds , no abscess formation .) Musculoskeletal: Motor Deficit Psychiatric: Normal Mood Description: Calm Affect: Normal Speech Pattern: Clear and Appropriate Laboratory and Diagnostics 10/12/24 05:36 10/12/24 05:36 Labs: Laboratory WBC 6.9 X10^3/uL (3.6-10.0) 10/12/24 05:36 RBC 3.73 X10^6/uL (3.5-5.4) 10/12/24 05:36 Hgb 11.7 g/dL (12.0-16.0) L 10/12/24 05:36 Hct 33.5 % (36.0-47.0) L 10/12/24 05:36 MCV 89.8 fL (80.0-100.0) 10/12/24 05:36 MCH 31.3 pg (27.0-34.0) 10/12/24 05:36 MCHC 34.9 g/dL (33.0-35.0) 10/12/24 05:36 RDW 15.3 % (11.6-16.5) 10/12/24 05:36 Plt Count 212 X10^3/uL (150.0-450.0) 10/12/24 05:36 MPV 8.0 fL (7.4-11.0) 10/12/24 05:36 Neut % (Auto) 53.8 % (42.0-75.0) 10/12/24 05:36 Lymph % (Auto) 32.6 % (21.0-51.0) 10/12/24 05:36 [place] % (Auto) 10.3 % (0.0-13.0) 10/12/24 05:36 Eos % (Auto) 1.7 % (0.9-2.9) 10/12/24 05:36 Baso % (Auto) 1.6 % (0.2-1.0) H 10/12/24 05:36 Neut # (Auto) 3.7 x10^3/uL (2.2-4.8) 10/12/24 05:36 Lymph # (Auto) 2.3 X10^3/uL (1.3-2.9) 10/12/24 05:36 [place] # (Auto) 0.7 x10^3/uL (0.3-0.8) 10/12/24 05:36 Eos # (Auto) 0.1 x10^3/uL (0.0-0.2) 10/12/24 05:36 Baso # (Auto) 0.1 X10^3/uL (0.0-0.1) 10/12/24 05:36 Absolute Nucleated RBC 0.1 /100WBC 10/12/24 05:36 PT 26.0 SECONDS (11.8-14.3) 10/12/24 05:36 INR Target Range - 10/12/24 05:36 INR 2.48 (0.8-1.3) H 10/12/24 05:36 APTT 36.8 SECONDS (22.9-36.5) H 10/10/24 18:20 PTT Comment - 10/10/24 18:20 Sodium 140 mmol/L (136-145) 10/12/24 05:36 Corrected Sodium 140 mmol/L (136-145) 10/12/24 05:36 Potassium 3.5 mmol/L (3.5-5.1) 10/12/24 05:36 Chloride 104 mmol/L (98-107) 10/12/24 05:36 Carbon Dioxide 28.9 mmol/L (21-32) 10/12/24 05:36 BUN 14 mg/dL (7-18) 10/12/24 05:36 Creatinine 0.58 mg/dL (0.55-1.02) 10/12/24 05:36 Est GFR (MDRD) Af Amer > 60 (>60) 10/12/24 05:36 Est GFR (MDRD) Non-Af > 60 (>60) 10/12/24 05:36 Glucose 120 mg/dL (65-99) H 10/12/24 05:36 Calcium 8.7 mg/dL (8.5-10.1) 10/12/24 05:36 Corrected Calcium 9.6 mg/dL (8.5-10.1) 10/12/24 05:36 Magnesium 1.7 mg/dL (2.0-2.9) L 10/12/24 05:36 Total Bilirubin 0.60 mg/dL (0.2-1.0) 10/12/24 05:36 AST 18 Units/L (15-37) 10/12/24 05:36 ALT 24 Units/L (12-78) 10/12/24 05:36 Alkaline Phosphatase 96 Units/L (46-116) 10/12/24 05:36 Total Protein 6.1 g/dL (6.4-8.2) L 10/12/24 05:36 Albumin 2.9 g/dL (3.4-5.0) L 10/12/24 05:36 Globulin 3.2 g/dL (2.5-4.5) 10/12/24 05:36 Albumin/Globulin Ratio 0.9 Ratio (1.1-2.1) L 10/12/24 05:36 Assessment and Plan 1: Cellulitis of abdominal wall with positive culture for coag positive staph. Same IV vancomycin and will reevaluate the skin condition in the morning for possible more debridement. 2: UTI, same IV antibiotics. 3: Candidiasis, patient is on IV Diflucan.
[2024-10-12] MEDS: PHARMACY COMMENT IV ONE (08:30)
[2024-10-12] MEDS ORDERED: K-RIDER 10 MEQ/100 ML WATER 10 MEQ/100 ML BAG IV SCH (09:00)
[2024-10-12] MEDS ORDERED: MAGNESIUM SULFATE 1 GRAM/100 mL PREMIX 1 G/100 ML BAG IV SCH (09:00)
[2024-10-12] MEDS: DIFLUCAN 200 MG IV PREMIX* 200 MG/100 ML BAG IV SCH (09:05)
[2024-10-12] MEDS: BENADRYL CAP/TAB 25 MG PO PRN (09:14)
[2024-10-12 09:26] LABS: CREATININE 0.45 mg/dL (0.55-1.02); VANCOMYCIN,TROUGH 9.6 ug/mL (15-20)
--- NOTE | 2024-10-12 10:38 | PCM.PROG ---
Progress Note Progress Note for Day of Date of Exam: 10/12/24 Subjective Subjective: Patient seen at bedside, no acute events overnight. She is currently admitted for cellulitis/open wound in the lower abdomen/pelvic region. Wound Cx shows coag + staph. Dr Block has been consulted, no plans for I&D today. She remains on IV antibiotics. Labs/imaging reviewed: -WBC 6.9 Hgb 11.7 K 3.5 Mag 1.7 INR 2.48 -Wound Cx: coag + staph Plan: Continue wound care, follow final culture. Continue IV vancomycin and IV fluconazole. Follow surgery recommendations. Continue home meds. Resume warfarin. Replace electrolytes prn. Monitor AM labs/imaging. Past Medical Family Social History Allergies: Allergies ketorolac Allergy (Mild, Verified 08/07/24 10:39) clindamycin Allergy (Verified 08/07/24 10:39) RASH nitrofurantoin [From Macrodantin] Allergy (Verified 08/07/24 10:39) phenytoin Allergy (Verified 08/07/24 10:39) Sulfa (Sulfonamide Antibiotics) [SULFA] Allergy (Verified 08/07/24 10:39) sulfamethoxazole [From Bactrim] Allergy (Verified 08/07/24 10:39) trimethoprim [From Bactrim] Allergy (Verified 08/07/24 10:39) Vital Signs and I&O's Vital Signs: Vital Signs Temperature 98.5 F Pulse Rate [Right Radial] 75 Respiratory Rate 20 Blood Pressure [Right Arm] 138/65 O2 Sat by Pulse Oximetry 96 Intake and Output: Intake & Output 10/09/24 10/10/24 10/11/24 10/12/24 23:59 23:59 23:59 23:59 Intake Total 480 / 480 421 / 421 289 / 289 Balance 480 / 480 421 / 421 289 / 289 Physical Exam Oriented: Normal Eyes: Normal Ear: Normal Nose: Normal Throat: Normal Cardiovascular: Normal Auscultation: Bowel Sounds: Normal Tenderness: Normal Skin: Tender and Other (lower abdominal wall erythema 10 x8 cm with open wounds , no abscess formation .) Musculoskeletal: Motor Deficit Psychiatric: Normal Mood Description: Calm Affect: Normal Speech Pattern: Clear and Appropriate Laboratory and Diagnostics 10/12/24 05:36 10/12/24 08:34 Labs: Laboratory WBC 6.9 X10^3/uL (3.6-10.0) 10/12/24 05:36 RBC 3.73 X10^6/uL (3.5-5.4) 10/12/24 05:36 Hgb 11.7 g/dL (12.0-16.0) L 10/12/24 05:36 Hct 33.5 % (36.0-47.0) L 10/12/24 05:36 MCV 89.8 fL (80.0-100.0) 10/12/24 05:36 MCH 31.3 pg (27.0-34.0) 10/12/24 05:36 MCHC 34.9 g/dL (33.0-35.0) 10/12/24 05:36 RDW 15.3 % (11.6-16.5) 10/12/24 05:36 Plt Count 212 X10^3/uL (150.0-450.0) 10/12/24 05:36 MPV 8.0 fL (7.4-11.0) 10/12/24 05:36 Neut % (Auto) 53.8 % (42.0-75.0) 10/12/24 05:36 Lymph % (Auto) 32.6 % (21.0-51.0) 10/12/24 05:36 [place] % (Auto) 10.3 % (0.0-13.0) 10/12/24 05:36 Eos % (Auto) 1.7 % (0.9-2.9) 10/12/24 05:36 Baso % (Auto) 1.6 % (0.2-1.0) H 10/12/24 05:36 Neut # (Auto) 3.7 x10^3/uL (2.2-4.8) 10/12/24 05:36 Lymph # (Auto) 2.3 X10^3/uL (1.3-2.9) 10/12/24 05:36 [place] # (Auto) 0.7 x10^3/uL (0.3-0.8) 10/12/24 05:36 Eos # (Auto) 0.1 x10^3/uL (0.0-0.2) 10/12/24 05:36 Baso # (Auto) 0.1 X10^3/uL (0.0-0.1) 10/12/24 05:36 Absolute Nucleated RBC 0.1 /100WBC 10/12/24 05:36 PT 26.0 SECONDS (11.8-14.3) 10/12/24 05:36 INR Target Range - 10/12/24 05:36 INR 2.48 (0.8-1.3) H 10/12/24 05:36 APTT 36.8 SECONDS (22.9-36.5) H 10/10/24 18:20 PTT Comment - 10/10/24 18:20 Sodium 140 mmol/L (136-145) 10/12/24 05:36 Corrected Sodium 140 mmol/L (136-145) 10/12/24 05:36 Potassium 3.5 mmol/L (3.5-5.1) 10/12/24 05:36 Chloride 104 mmol/L (98-107) 10/12/24 05:36 Carbon Dioxide 28.9 mmol/L (21-32) 10/12/24 05:36 BUN 14 mg/dL (7-18) 10/12/24 05:36 Creatinine 0.45 mg/dL (0.55-1.02) L 10/12/24 08:34 Est GFR (MDRD) Af Amer > 60 (>60) 10/12/24 05:36 Est GFR (MDRD) Non-Af > 60 (>60) 10/12/24 05:36 Glucose 120 mg/dL (65-99) H 10/12/24 05:36 Calcium 8.7 mg/dL (8.5-10.1) 10/12/24 05:36 Corrected Calcium 9.6 mg/dL (8.5-10.1) 10/12/24 05:36 Magnesium 1.7 mg/dL (2.0-2.9) L 10/12/24 05:36 Total Bilirubin 0.60 mg/dL (0.2-1.0) 10/12/24 05:36 AST 18 Units/L (15-37) 10/12/24 05:36 ALT 24 Units/L (12-78) 10/12/24 05:36 Alkaline Phosphatase 96 Units/L (46-116) 10/12/24 05:36 Total Protein 6.1 g/dL (6.4-8.2) L 10/12/24 05:36 Albumin 2.9 g/dL (3.4-5.0) L 10/12/24 05:36 Globulin 3.2 g/dL (2.5-4.5) 10/12/24 05:36 Albumin/Globulin Ratio 0.9 Ratio (1.1-2.1) L 10/12/24 05:36 Vancomycin Trough 9.6 ug/mL (15-20) L 10/12/24 08:34 Plan (1) Open abdominal wall wound: Status: Acute Qualifiers: Encounter type: subsequent encounter Qualified Code(s): S31.109D - Unspecified open wound of abdominal wall, unspecified quadrant without penetration into peritoneal cavity, subsequent encounter (2) Yeast infection of the skin: Status: Acute (3) Hypokalemia: Status: Acute (4) Hypomagnesemia: Status: Acute (5) History of pulmonary embolism: Status: Chronic (6) GERD (gastroesophageal reflux disease): Status: Chronic Qualifiers: Esophagitis presence: esophagitis presence not specified Qualified Code(s): K21.9 - Gastro-esophageal reflux disease without esophagitis (7) Hypertension: Status: Chronic Qualifiers: Hypertension type: essential hypertension Qualified Code(s): I10 - Essential (primary) hypertension
[2024-10-12] MEDS: K-DUR TAB 20 MEQ PO SCH (10:44)
[2024-10-12] MEDS: MAG-OX TAB PO SCH (10:44)
[2024-10-12] MEDS: VANCOMYCIN IV *PREMIX 1.25 G/250 ML BAG 1.25 G/250 ML PIGGYBACK IV SCH (10:45)
[2024-10-12] MEDS: COUMADIN TAB 4 MG (JANTOVEN) PO SCH (10:50)
[2024-10-12] MEDS: NORVASC TAB 2.5 MG ONE (16:53)
[2024-10-13 05:45] LABS: BASOPHILS # (AUTO) 0.1 X10^3/uL (0.0-0.1); BASOPHILS % (AUTO) 0.7 % (0.2-1.0); EOSINOPHILS # (AUTO) 0.1 x10^3/uL (0.0-0.2); EOSINOPHILS % (AUTO) 1.1 % (0.9-2.9); HEMATOCRIT 34.6 % (36.0-47.0); HEMOGLOBIN 11.8 g/dL (12.0-16.0); LYMPHOCYTES % (AUTO) 22.4 % (21.0-51.0); MEAN CORPUSCULAR HEMOGLOBIN 30.7 pg (27.0-34.0); MEAN CORPUSCULAR HGB CONC 34.1 g/dL (33.0-35.0); MEAN CORPUSCULAR VOLUME 90.2 fL (80.0-100.0); MEAN PLATELET VOLUME 7.8 fL (7.4-11.0); MONOCYTES # (AUTO) 0.9 x10^3/uL (0.3-0.8); MONOCYTES % (AUTO) 10.6 % (0.0-13.0); NEUTROPHILS # (AUTO) 5.8 x10^3/uL (2.2-4.8); NEUTROPHILS % (AUTO) 65.2 % (42.0-75.0); PLATELET COUNT 230 X10^3/uL (150.0-450.0); RED BLOOD COUNT 3.83 X10^6/uL (3.5-5.4); RED CELL DISTRIBUTION WIDTH 15.3 % (11.6-16.5); WHITE BLOOD COUNT 8.9 X10^3/uL (3.6-10.0)
[2024-10-13 05:57] LABS: ALANINE AMINOTRANSFERASE 26 Units/L (12-78); ALBUMIN 2.9 g/dL (3.4-5.0); ALKALINE PHOSPHATASE 96 Units/L (46-116); ASPARTATE AMINO TRANSFERASE 19 Units/L (15-37); BLOOD UREA NITROGEN 11 mg/dL (7-18); CALCIUM 8.9 mg/dL (8.5-10.1); CARBON DIOXIDE 29.8 mmol/L (21-32); CHLORIDE 105 mmol/L (98-107); COR CA(FOR HYPOALB) 9.8 mg/dL (8.5-10.1); COR NA(FOR HYPERGLY) 143 mmol/L (136-145); CREATININE 0.68 mg/dL (0.55-1.02); GLUCOSE 113 mg/dL (65-99); MAGNESIUM 1.9 mg/dL (2.0-2.9); POTASSIUM 3.9 mmol/L (3.5-5.1); SODIUM 143 mmol/L (136-145); TOTAL PROTEIN 6.3 g/dL (6.4-8.2); eGFR NON BLACK RACES > 60 (>60)
[2024-10-13] MEDS: MAG-OX TAB ONE (07:36)
[2024-10-13] MEDS: K-DUR TAB 20 MEQ PO ONE (07:36)
[2024-10-13] MEDS: NS 250 ML IV 250 ML IV ONE ×2 (07:37)
[2024-10-13] MEDS: NORVASC TAB 2.5 MG ONE (07:37)
[2024-10-13] MEDS ORDERED: NORVASC TAB 2.5 MG ONE (08:25)
--- NOTE | 2024-10-13 08:35 | DR.PROGNOT ---
HOSPITAL PROGRESS NOTE Progress Note for Day of: Progress Note Date: 10/13/24 Chief Complaint Chief Complaint: Feeling much better today with minimal pain and less drainage. Final culture showed MRSA resistant to almost all of the oral medications except Bactrim and Zyvox, patient is allergic to sulfa. She needs at least another day of IV vancomycin then she could be discharged on Zyvox Past Medical Family Social History Past Med/Fam/Surg Hx: No changes since H&P Allergies: Allergies ketorolac Allergy (Mild, Verified 08/07/24 10:39) clindamycin Allergy (Verified 08/07/24 10:39) RASH nitrofurantoin [From Macrodantin] Allergy (Verified 08/07/24 10:39) phenytoin Allergy (Verified 08/07/24 10:39) Sulfa (Sulfonamide Antibiotics) [SULFA] Allergy (Verified 08/07/24 10:39) sulfamethoxazole [From Bactrim] Allergy (Verified 08/07/24 10:39) trimethoprim [From Bactrim] Allergy (Verified 08/07/24 10:39) Vital Signs Vital Signs: Vital Signs Temperature 98.0 F Pulse Rate [Right Radial] 71 Respiratory Rate 18 Blood Pressure [Right Arm] 143/60 O2 Sat by Pulse Oximetry 96 Physical Exam Oriented: Normal Eyes: Normal Ear: Normal Nose: Normal Throat: Normal Cardiovascular: Normal GI:Auscultation: Normal GI:Palpation: Normal GI: Tenderness: Normal Skin: Tender and Other (Erythema is subsiding with minimal drainage from the open wound, no induration or abscess formation, no necrosis.) Musculoskeletal: Motor Deficit Psychiatric: Normal Mood Description: Calm Affect: Normal Speech Pattern: Clear and Appropriate Laboratory and Diagnostics 10/13/24 05:25 10/13/24 05:25 Labs: Laboratory WBC 8.9 X10^3/uL (3.6-10.0) 10/13/24 05:25 RBC 3.83 X10^6/uL (3.5-5.4) 10/13/24 05:25 Hgb 11.8 g/dL (12.0-16.0) L 10/13/24 05:25 Hct 34.6 % (36.0-47.0) L 10/13/24 05:25 MCV 90.2 fL (80.0-100.0) 10/13/24 05:25 MCH 30.7 pg (27.0-34.0) 10/13/24 05:25 MCHC 34.1 g/dL (33.0-35.0) 10/13/24 05:25 RDW 15.3 % (11.6-16.5) 10/13/24 05:25 Plt Count 230 X10^3/uL (150.0-450.0) 10/13/24 05:25 MPV 7.8 fL (7.4-11.0) 10/13/24 05:25 Neut % (Auto) 65.2 % (42.0-75.0) 10/13/24 05:25 Lymph % (Auto) 22.4 % (21.0-51.0) 10/13/24 05:25 Boyle % (Auto) 10.6 % (0.0-13.0) 10/13/24 05:25 Eos % (Auto) 1.1 % (0.9-2.9) 10/13/24 05:25 Baso % (Auto) 0.7 % (0.2-1.0) 10/13/24 05:25 Neut # (Auto) 5.8 x10^3/uL (2.2-4.8) H 10/13/24 05:25 Lymph # (Auto) 2.0 X10^3/uL (1.3-2.9) 10/13/24 05:25 Boyle # (Auto) 0.9 x10^3/uL (0.3-0.8) H 10/13/24 05:25 Eos # (Auto) 0.1 x10^3/uL (0.0-0.2) 10/13/24 05:25 Baso # (Auto) 0.1 X10^3/uL (0.0-0.1) 10/13/24 05:25 Absolute Nucleated RBC 0.1 /100WBC 10/13/24 05:25 PT 26.0 SECONDS (11.8-14.3) 10/12/24 05:36 INR Target Range - 10/12/24 05:36 INR 2.48 (0.8-1.3) H 10/12/24 05:36 APTT 36.8 SECONDS (22.9-36.5) H 10/10/24 18:20 PTT Comment - 10/10/24 18:20 Sodium 143 mmol/L (136-145) 10/13/24 05:25 Corrected Sodium 143 mmol/L (136-145) 10/13/24 05:25 Potassium 3.9 mmol/L (3.5-5.1) 10/13/24 05:25 Chloride 105 mmol/L (98-107) 10/13/24 05:25 Carbon Dioxide 29.8 mmol/L (21-32) 10/13/24 05:25 BUN 11 mg/dL (7-18) 10/13/24 05:25 Creatinine 0.68 mg/dL (0.55-1.02) 10/13/24 05:25 Est GFR (MDRD) Af Amer > 60 (>60) 10/13/24 05:25 Est GFR (MDRD) Non-Af > 60 (>60) 10/13/24 05:25 Glucose 113 mg/dL (65-99) H 10/13/24 05:25 Calcium 8.9 mg/dL (8.5-10.1) 10/13/24 05:25 Corrected Calcium 9.8 mg/dL (8.5-10.1) 10/13/24 05:25 Magnesium 1.9 mg/dL (2.0-2.9) L 10/13/24 05:25 Total Bilirubin 0.50 mg/dL (0.2-1.0) 10/13/24 05:25 AST 19 Units/L (15-37) 10/13/24 05:25 ALT 26 Units/L (12-78) 10/13/24 05:25 Alkaline Phosphatase 96 Units/L (46-116) 10/13/24 05:25 Total Protein 6.3 g/dL (6.4-8.2) L 10/13/24 05:25 Albumin 2.9 g/dL (3.4-5.0) L 10/13/24 05:25 Globulin 3.4 g/dL (2.5-4.5) 10/13/24 05:25 Albumin/Globulin Ratio 0.9 Ratio (1.1-2.1) L 10/13/24 05:25 Vancomycin Trough 9.6 ug/mL (15-20) L 10/12/24 08:34 Assessment and Plan 1: Subsiding abdominal wall cellulitis and panniculitis positive for MRSA 2: UTI, same IV antibiotics. 3: Candidiasis, patient is on IV Diflucan.
--- NOTE | 2024-10-13 10:25 | PCM.PROG ---
Progress Note Progress Note for Day of Date of Exam: 10/13/24 Subjective Subjective: Patient resting in bed this morning. No acute events overnight. She is currently admitted for cellulitis/open wound in the lower abdomen/pelvic region. Wound Cx shows coag + staph. Dr Block has been consulted and following. She remains on IV antibiotics. Labs/imaging reviewed: -WBC 8.9, hemoglobin 11.8, platelets 230, sodium 143, potassium 3.9, creatinine 0.68, glucose 113. -Wound Cx: MRSA Plan: Continue wound care, follow final culture. Continue IV vancomycin and IV fluconazole. Follow surgery recommendations. Continue home meds. Replace electrolytes prn. Monitor AM labs/imaging. Past Medical Family Social History Past Med/Fam/Surg Hx: No changes since H&P Allergies: Allergies ketorolac Allergy (Mild, Verified 08/07/24 10:39) clindamycin Allergy (Verified 08/07/24 10:39) RASH nitrofurantoin [From Macrodantin] Allergy (Verified 08/07/24 10:39) phenytoin Allergy (Verified 08/07/24 10:39) Sulfa (Sulfonamide Antibiotics) [SULFA] Allergy (Verified 08/07/24 10:39) sulfamethoxazole [From Bactrim] Allergy (Verified 08/07/24 10:39) trimethoprim [From Bactrim] Allergy (Verified 08/07/24 10:39) Review of Systems ROS changes noted: see HPI Vital Signs and I&O's Vital Signs: Vital Signs Temperature 98.0 F Pulse Rate [Right Radial] 71 Respiratory Rate 18 Blood Pressure [Right Arm] 143/60 O2 Sat by Pulse Oximetry 96 Intake and Output: Intake & Output 10/10/24 10/11/24 10/12/24 10/13/24 23:59 23:59 23:59 23:59 Intake Total 480 / 480 421 / 421 1493 / 1493 120 / 120 Balance 480 / 480 421 / 421 1493 / 1493 120 / 120 Physical Exam Oriented: Normal Eyes: Normal Ear: Normal Nose: Normal Throat: Normal Respiratory: Normal Cardiovascular: Normal Auscultation: Bowel Sounds: Normal Tenderness: Normal Skin: Tender and Other (Erythema is subsiding with minimal drainage from the open wound, no induration or abscess formation, no necrosis.) Musculoskeletal: Motor Deficit Psychiatric: Normal Mood Description: Calm Affect: Normal Speech Pattern: Clear and Appropriate Laboratory and Diagnostics 10/13/24 05:25 10/13/24 05:25 Labs: Laboratory WBC 8.9 X10^3/uL (3.6-10.0) 10/13/24 05:25 RBC 3.83 X10^6/uL (3.5-5.4) 10/13/24 05:25 Hgb 11.8 g/dL (12.0-16.0) L 10/13/24 05:25 Hct 34.6 % (36.0-47.0) L 10/13/24 05:25 MCV 90.2 fL (80.0-100.0) 10/13/24 05:25 MCH 30.7 pg (27.0-34.0) 10/13/24 05: MCHC 34.1 g/dL (33.0-35.0) 10/13/24 05:25 RDW 15.3 % (11.6-16.5) 10/13/24 05:25 Plt Count 230 X10^3/uL (150.0-450.0) 10/13/24 05:25 MPV 7.8 fL (7.4-11.0) 10/13/24 05:25 Neut % (Auto) 65.2 % (42.0-75.0) 10/13/24 05:25 Lymph % (Auto) 22.4 % (21.0-51.0) 10/13/24 05:25 [place] % (Auto) 10.6 % (0.0-13.0) 10/13/24 05:25 Eos % (Auto) 1.1 % (0.9-2.9) 10/13/24 05:25 Baso % (Auto) 0.7 % (0.2-1.0) 10/13/24 05:25 Neut # (Auto) 5.8 x10^3/uL (2.2-4.8) H 10/13/24 05:25 Lymph # (Auto) 2.0 X10^3/uL (1.3-2.9) 10/13/24 05:25 [place] # (Auto) 0.9 x10^3/uL (0.3-0.8) H 10/13/24 05:25 Eos # (Auto) 0.1 x10^3/uL (0.0-0.2) 10/13/24 05:25 Baso # (Auto) 0.1 X10^3/uL (0.0-0.1) 10/13/24 05:25 Absolute Nucleated RBC 0.1 /100WBC 10/13/24 05:25 PT 26.0 SECONDS (11.8-14.3) 10/12/24 05:36 INR Target Range - 10/12/24 05:36 INR 2.48 (0.8-1.3) H 10/12/24 05:36 APTT 36.8 SECONDS (22.9-36.5) H 10/10/24 18:20 PTT Comment - 10/10/24 18:20 Sodium 143 mmol/L (136-145) 10/13/24 05:25 Corrected Sodium 143 mmol/L (136-145) 10/13/24 05:25 Potassium 3.9 mmol/L (3.5-5.1) 10/13/24 05:25 Chloride 105 mmol/L (98-107) 10/13/24 05:25 Carbon Dioxide 29.8 mmol/L (21-32) 10/13/24 05:25 BUN 11 mg/dL (7-18) 10/13/24 05:25 Creatinine 0.68 mg/dL (0.55-1.02) 10/13/24 05:25 Est GFR (MDRD) Af Amer > 60 (>60) 10/13/24 05:25 Est GFR (MDRD) Non-Af > 60 (>60) 10/13/24 05:25 Glucose 113 mg/dL (65-99) H 10/13/24 05:25 Calcium 8.9 mg/dL (8.5-10.1) 10/13/24 05:25 Corrected Calcium 9.8 mg/dL (8.5-10.1) 10/13/24 05:25 Magnesium 1.9 mg/dL (2.0-2.9) L 10/13/24 05:25 Total Bilirubin 0.50 mg/dL (0.2-1.0) 10/13/24 05:25 AST 19 Units/L (15-37) 10/13/24 05:25 ALT 26 Units/L (12-78) 10/13/24 05:25 Alkaline Phosphatase 96 Units/L (46-116) 10/13/24 05:25 Total Protein 6.3 g/dL (6.4-8.2) L 10/13/24 05:25 Albumin 2.9 g/dL (3.4-5.0) L 10/13/24 05:25 Globulin 3.4 g/dL (2.5-4.5) 10/13/24 05:25 Albumin/Globulin Ratio 0.9 Ratio (1.1-2.1) L 10/13/24 05:25 Vancomycin Trough 9.6 ug/mL (15-20) L 10/12/24 08:34 Plan (1) Open abdominal wall wound: Status: Acute Qualifiers: Encounter type: subsequent encounter Qualified Code(s): S31.109D - Unspecified open wound of abdominal wall, unspecified quadrant without penetration into peritoneal cavity, subsequent encounter (2) Yeast infection of the skin: Status: Acute (3) Hypokalemia: Status: Acute (4) Hypomagnesemia: Status: Acute (5) History of pulmonary embolism: Status: Chronic (6) GERD (gastroesophageal reflux disease): Status: Chronic Qualifiers: Esophagitis presence: esophagitis presence not specified Qualified Code(s): K21.9 - Gastro-esophageal reflux disease without esophagitis (7) Hypertension: Status: Chronic Qualifiers: Hypertension type: essential hypertension Qualified Code(s): I10 - Essential (primary) hypertension
[2024-10-13] MEDS ORDERED: PHARMACY COMMENT IV SCH (20:30)
[2024-10-13 21:35] LABS: CREATININE 0.61 mg/dL (0.55-1.02)
[2024-10-13] MEDS: TYLENOL 325 MG TAB PO PRN (21:59)
[2024-10-13] MEDS: PHARMACY COMMENT IV NR (22:00)
[2024-10-13] MEDS: ALPRAZOLAM ODT PO PRN (23:14)
[2024-10-14 05:47] LABS: BASOPHILS % (AUTO) 0.3 % (0.2-1.0); EOSINOPHILS # (AUTO) 0.3 x10^3/uL (0.0-0.2); EOSINOPHILS % (AUTO) 4.1 % (0.9-2.9); HEMATOCRIT 34.1 % (36.0-47.0); HEMOGLOBIN 11.8 g/dL (12.0-16.0); LYMPHOCYTES # (AUTO) 2.2 X10^3/uL (1.3-2.9); LYMPHOCYTES % (AUTO) 34.4 % (21.0-51.0); MEAN CORPUSCULAR HGB CONC 34.6 g/dL (33.0-35.0); MEAN CORPUSCULAR VOLUME 89.6 fL (80.0-100.0); MEAN PLATELET VOLUME 7.7 fL (7.4-11.0); MONOCYTES # (AUTO) 0.7 x10^3/uL (0.3-0.8); MONOCYTES % (AUTO) 11.3 % (0.0-13.0); NEUTROPHILS # (AUTO) 3.2 x10^3/uL (2.2-4.8); NEUTROPHILS % (AUTO) 49.9 % (42.0-75.0); PLATELET COUNT 232 X10^3/uL (150.0-450.0); RED BLOOD COUNT 3.81 X10^6/uL (3.5-5.4); RED CELL DISTRIBUTION WIDTH 15.2 % (11.6-16.5); WHITE BLOOD COUNT 6.4 X10^3/uL (3.6-10.0)
[2024-10-14 06:00] LABS: ALANINE AMINOTRANSFERASE 27 Units/L (12-78); ALBUMIN 2.9 g/dL (3.4-5.0); ALKALINE PHOSPHATASE 93 Units/L (46-116); ASPARTATE AMINO TRANSFERASE 19 Units/L (15-37); BLOOD UREA NITROGEN 14 mg/dL (7-18); CALCIUM 8.9 mg/dL (8.5-10.1); CARBON DIOXIDE 29.3 mmol/L (21-32); CHLORIDE 105 mmol/L (98-107); COR CA(FOR HYPOALB) 9.8 mg/dL (8.5-10.1); CREATININE 0.61 mg/dL (0.55-1.02); GLUCOSE 105 mg/dL (65-99); MAGNESIUM 1.8 mg/dL (2.0-2.9); POTASSIUM 3.8 mmol/L (3.5-5.1); SODIUM 141 mmol/L (136-145); TOTAL PROTEIN 6.2 g/dL (6.4-8.2); eGFR NON BLACK RACES > 60 (>60)
[2024-10-14] MEDS ORDERED: CONSULT PHARMACY - POTASSIUM & MAGNESIUM XX SCH (08:00)
[2024-10-14 08:13] VITALS: BP 150/79; PULSE 70; RESP 20; TEMP 98.5; O2SAT 98
[2024-10-14] MEDS: NORVASC TAB 2.5 MG ONE (08:36)
[2024-10-14] MEDS: K-DUR TAB 20 MEQ PO SCH (08:37)
== END 2024-10-14 11:30 | disposition home or self-care (01) ==
LOC: MED/SURG
PROVIDERS: ADMIT Family Medicine; ATTEND Family Medicine

== ENCOUNTER 2025-01-26 13:33 | Inpatient (IN) ==
[2025-01-26] MEDS: NS 1,000 ML IV 1,000 ML IV SCH (17:33)
[2025-01-26] MEDS: INVanz INJ 1 GRAM VIAL 1 G in NS 100 ML IV 100 ML IV SCH (17:34)
[2025-01-26 17:37] LABS: MEAN PLATELET VOLUME 8.1 fL (7.4-11.0); RED CELL DISTRIBUTION WIDTH 14.8 % (11.6-16.5)
[2025-01-26 17:43] LABS: CREATININE 0.75 mg/dL (0.55-1.02); eGFR NON BLACK RACES > 60 (>60)
[2025-01-26 17:58] VITALS: BMI 37.4
[2025-01-27 05:20] LABS: MEAN PLATELET VOLUME 8.0 fL (7.4-11.0); RED CELL DISTRIBUTION WIDTH 14.9 % (11.6-16.5)
[2025-01-27 05:22] LABS: INR 2.67 (0.8-1.3)
[2025-01-27 05:29] LABS: CREATININE 0.68 mg/dL (0.55-1.02); eGFR NON BLACK RACES > 60 (>60)
[2025-01-27] MEDS ORDERED: CONSULT PHARMACY - POTASSIUM & MAGNESIUM XX SCH (06:00)
[2025-01-27] MEDS: K-DUR TAB 20 MEQ PO SCH (08:21)
[2025-01-27] MEDS: MAG-OX TAB PO SCH (08:21)
[2025-01-27] MEDS ORDERED: POTASSIUM CHLORIDE 8 MEQ PO SCH (09:00)
[2025-01-27] MEDS ORDERED: NORVASC TAB 2.5 MG ONE (09:41)
[2025-01-27] MEDS: NEURONTIN CAP 400 MG PO SCH (09:46)
[2025-01-27] MEDS: COUMADIN TAB 4 MG (JANTOVEN) PO SCH (09:46)
[2025-01-27] MEDS: COREG TAB 12.5 MG PO SCH (09:47)
[2025-01-27] MEDS: HYDROCHLOROTHIAZIDE 25 MG TAB PO SCH (09:47)
[2025-01-27] MEDS: PROTONIX TAB 40 MG PO SCH (09:47)
[2025-01-27] MEDS: SINGULAIR TAB 10 MG PO SCH (09:47)
[2025-01-27] MEDS: NORVASC TAB 2.5 MG PO SCH (09:47)
[2025-01-27] MEDS: EXELON PO SCH (09:47)
[2025-01-27] MEDS: PAXIL PO SCH (09:47)
[2025-01-27] MEDS: COZAAR PO SCH (09:48)
[2025-01-27] MEDS: CELEXA PO SCH (09:48)
[2025-01-27] MEDS: POTASSIUM CHLORIDE 8 MEQ PO SCH (11:53)
[2025-01-27] MEDS: LIPITOR TAB 80 MG PO SCH (21:16)
[2025-01-28 06:34] LABS: MEAN PLATELET VOLUME 7.8 fL (7.4-11.0); RED CELL DISTRIBUTION WIDTH 15.1 % (11.6-16.5)
[2025-01-28 06:43] LABS: COR CA(FOR HYPOALB) 9.0 mg/dL (8.5-10.1); COR NA(FOR HYPERGLY) 143 mmol/L (136-145); CREATININE 0.49 mg/dL (0.55-1.02); eGFR NON BLACK RACES > 60 (>60)
[2025-01-28] MEDS ORDERED: CONSULT PHARMACY - POTASSIUM & MAGNESIUM XX SCH (08:00)
[2025-01-28] MEDS: MAG-OX TAB PO SCH (09:37)
[2025-01-28] MEDS: K-DUR TAB 20 MEQ PO SCH (09:37)
--- NOTE | 2025-01-28 11:43 | DR.H&P ---
H&P History & Physical for Day of: H&P Date: 01/26/25 Chief Complaint Chief Complaint: dysuria History of Present Illness History of Present Illness: Patient is a 79-year-old female directly admitted after failing outpatient treatment for acute cystitis. Patient reports dysuria. She denies fevers or chills. Labs/imaging: WBC 6.9, hemoglobin 12.2, platelets 226, sodium 139, potassium 3.3, creatinine 0.75, glucose 96. Urine culture positive for E. coli ESBL. Patient was admitted for acute cystitis and hypokalemia. Start on IV antibiotics with Invanz. Replete electrolytes per protocol. Will restart home medications. Otherwise continue current treatment plan. Continue closely monitor and follow-up labs/imaging. Past Medical History Past Medical History: Arthritis, CVA and Hypertension Past Surgical History Surgical History: Hysterectomy Family History Family Medical History: Diabetes Mellitus and Hypertension Social History Does patient currently use any type of tobacco product: No Type of Tobacco Use: None Does any household member use tobacco: No Alcohol Use: None Drug Use: None Medications Home Medications: Home Medications Medication Instructions Recorded Confirmed Type cholecalciferol (vitamin D3) 50 2,000 unit PO WEEKLY 0 07/22/24 01/26/25 History mcg (2,000 unit) capsule citalopram 10 mg tablet 10 mg PO DAILY 08/07/2401/17 History Allergies Allergies Allergy/AdvReac Type Severity Reaction Status Date / Time ketorolac Allergy Mild Verified 10/25/24 11:14 clindamycin Allergy RASH Verified 10/25/24 11:14 nitrofurantoin (From Allergy Verified 10/25/24 11:14 Macrodantin) phenytoin Allergy Verified 10/25/24 11:14 Sulfa (Sulfonamide Allergy Verified 10/25/24 11:14 Antibiotics) (SULFA) sulfamethoxazole (From Allergy Verified 10/25/24 11:14 Bactrim) trimethoprim (From Bactrim) Allergy Verified 10/25/24 11:14 Labs 01/28/25 06:07 01/28/25 06:07 Labs: Laboratory WBC 6.0 X10^3/uL (3.6-10.0) 01/27/25 04:59 RBC 3.82 X10^6/uL (3.5-5.4) 01/27/25 04:59 Hgb 11.9 g/dL (12.0-16.0) L 01/27/25 04:59 Hct 34.1 % (36.0-47.0) L 01/27/25 04:59 MCV 89.2 fL (80.0-100.0) 01/27/25 04:59 MCH 31.3 pg (27.0-34.0) 01/27/25 04:59 MCHC 35.0 g/dL (33.0-35.0) 01/27/25 04:59 RDW 14.9 % (11.6-16.5) 01/27/25 04:59 Plt Count 212 X10^3/uL (150.0-450.0) 01/27/25 04:59 MPV 8.0 fL (7.4-11.0) 01/27/25 04:59 Neut % (Auto) 51.5 % (42.0-75.0) 01/27/25 04:59 Lymph % (Auto) 33.3 % (21.0-51.0) 01/27/25 04:59 [place] % (Auto) 10.8 % (0.0-13.0) 01/27/25 04:59 Eos % (Auto) 3.5 % (0.9-2.9) H 01/27/25 04:59 Baso % (Auto) 0.9 % (0.2-1.0) 01/27/25 04:59 Neut # (Auto) 3.1 x10^3/uL (2.2-4.8) 01/27/25 04:59 Lymph # (Auto) 2.0 X10^3/uL (1.3-2.9) 01/27/25 04:59 [place] # (Auto) 0.7 x10^3/uL (0.3-0.8) 01/27/25 04:59 Eos # (Auto) 0.2 x10^3/uL (0.0-0.2) 01/27/25 04:59 Baso # (Auto) 0.1 X10^3/uL (0.0-0.1) 01/27/25 04:59 Absolute Nucleated RBC 0.3 /100WBC 01/27/25 04:59 PT 28.6 SECONDS (11.8-14.3) 01/27/25 04:59 INR Target Range - 01/27/25 04:59 INR 2.67 (0.8-1.3) H 01/27/25 04:59 Sodium 142 mmol/L (136-145) 01/27/25 04:59 Corrected Sodium TNP 01/27/25 04:59 Potassium 3.5 mmol/L (3.5-5.1) 01/27/25 04:59 Chloride 106 mmol/L (98-107) 01/27/25 04:59 Carbon Dioxide 30.9 mmol/L (21-32) 01/27/25 04:59 BUN 14 mg/dL (7-18) 01/27/25 04:59 Creatinine 0.68 mg/dL (0.55-1.02) 01/27/25 04:59 Est GFR (MDRD) Af Amer > 60 (>60) 01/27/25 04:59 Est GFR (MDRD) Non-Af > 60 (>60) 01/27/25 04:59 Glucose 107 mg/dL (65-99) H 01/27/25 04:59 Calcium 8.5 mg/dL (8.5-10.1) 01/27/25 04:59 Corrected Calcium TNP 01/27/25 04:59 Magnesium 1.8 mg/dL (2.0-2.9) L 01/27/25 04:59 Total Bilirubin 0.40 mg/dL (0.2-1.0) 01/27/25 04:59 AST 21 Units/L (15-37) 01/27/25 04:59 ALT 31 Units/L (12-78) 01/27/25 04:59 Alkaline Phosphatase 93 Units/L (46-116) 01/27/25 04:59 Total Protein 7.1 g/dL (6.4-8.2) 01/27/25 04:59 Albumin 3.4 g/dL (3.4-5.0) 01/27/25 04:59 Globulin 3.7 g/dL (2.5-4.5) 01/27/25 04:59 Albumin/Globulin Ratio 0.9 Ratio (1.1-2.1) L 01/27/25 04:59 Review of Systems Constitutional: Weakness Eyes: No Symptoms Reported ENT: No Symptoms Reported Respiratory: No Symptoms Reported Cardiovascular: No Symptoms Reported Gastrointestinal: No Symptoms Reported Genitourinary: Dysuria Musculoskeletal: No Symptoms Reported Skin: No Symptoms Reported Neurological: No Symptoms Reported Physical Exam Vital Signs: Vital Signs Temperature 98.6 F Pulse Rate [Left Brachial] 63 Respiratory Rate 18 Blood Pressure [Left Arm] 141/68 O2 Sat by Pulse Oximetry 95 Oriented: Normal Eyes: Normal Ear: Normal Nose: Normal Throat: Normal Respiratory: Clear Throughout Cardiovascular: Normal : Normal Auscultation: Bowel Sounds: Normal Palpation: Normal Tenderness: Normal Skin: Normal Musculoskeletal: Normal Psychiatric: Normal Mood Description: Calm and Appropriate Affect: Normal Speech Pattern: Clear and Appropriate Assessment/Plan (1) UTI due to extended-spectrum beta lactamase (ESBL) producing Escherichia coli: Status: Acute Plan: IV invanz (2) Hypokalemia: Status: Acute Plan: replete per protocol Review H&P Reviewed: Yes Patient was examined?: Yes
--- NOTE | 2025-01-28 11:45 | PCM.PROG ---
Progress Note Progress Note for Day of Date of Exam: 01/27/25 Subjective Subjective: Patient is a 79-year-old female directly admitted after failing outpatient treatment for acute cystitis due to E coli ESBL. This morning she is resting comfortably in bed. No acute events overnight. Labs/imaging: WBC 6, hemoglobin 11.9, platelets 212, sodium 142, potassium 3.5, creatinine 0.68, glucose 107. She is currently receiving IV antibiotics with Invanz. Replete electrolytes per protocol. Home medications have been resumed. Otherwise continue current treatment plan. Continue closely monitor and follow-up labs/imaging. Past Medical Family Social History Allergies: Allergies ketorolac Allergy (Mild, Verified 10/25/24 11:14) clindamycin Allergy (Verified 10/25/24 11:14) RASH nitrofurantoin (From Macrodantin) Allergy (Verified 10/25/24 11:14) phenytoin Allergy (Verified 10/25/24 11:14) Sulfa (Sulfonamide Antibiotics) (SULFA) Allergy (Verified 10/25/24 11:14) sulfamethoxazole (From Bactrim) Allergy (Verified 10/25/24 11:14) trimethoprim (From Bactrim) Allergy (Verified 10/25/24 11:14) Review of Systems ROS changes noted: see HPI Vital Signs and I&O's Vital Signs: Vital Signs Temperature 98.4 F Temperature 98.2 F Pulse Rate [Left Brachial] 72 Pulse Rate [Left Brachial] 66 Respiratory Rate 18 Respiratory Rate 18 Blood Pressure [Left Arm] 135/63 Blood Pressure [Left Arm] 146/66 O2 Sat by Pulse Oximetry 96 O2 Sat by Pulse Oximetry 98 Intake and Output: Intake & Output 01/25/25 01/26/25 01/27/25 01/28/25 23:59 23:59 23:59 23:59 Intake Total 455 / 455 2997 / 2997 519 / 519 Output Total 2 / 2 Balance 453 / 453 2997 / 2997 519 / 519 Physical Exam Oriented: Normal Eyes: Normal Ear: Normal Nose: Normal Throat: Normal Respiratory: Normal Cardiovascular: Normal : Normal Auscultation: Bowel Sounds: Normal Tenderness: Normal Skin: Normal Musculoskeletal: Normal Psychiatric: Normal Mood Description: Calm and Appropriate Affect: Normal Speech Pattern: Clear and Appropriate Laboratory and Diagnostics 01/28/25 06:07 01/28/25 06:07 Labs: Laboratory WBC 6.0 X10^3/uL (3.6-10.0) 01/28/25 06:07 RBC 3.79 X10^6/uL (3.5-5.4) 01/28/25 06:07 Hgb 11.6 g/dL (12.0-16.0) L 01/28/25 06:07 Hct 33.6 % (36.0-47.0) L 01/28/25 06:07 MCV 88.8 fL (80.0-100.0) 01/28/25 06:07 MCH 30.7 pg (27.0-34.0) 01/28/25 06:07 MCHC 34.5 g/dL (33.0-35.0) 01/28/25 06:07 RDW 15.1 % (11.6-16.5) 01/28/25 06:07 Plt Count 198 X10^3/uL (150.0-450.0) 01/28/25 06:07 MPV 7.8 fL (7.4-11.0) 01/28/25 06:07 Neut % (Auto) 47.9 % (42.0-75.0) 01/28/25 06:07 Lymph % (Auto) 34.9 % (21.0-51.0) 01/28/25 06:07 [place] % (Auto) 11.3 % (0.0-13.0) 01/28/25 06:07 Eos % (Auto) 4.7 % (0.9-2.9) H 01/28/25 06:07 Baso % (Auto) 1.2 % (0.2-1.0) H 01/28/25 06:07 Neut # (Auto) 2.9 x10^3/uL (2.2-4.8) 01/28/25 06:07 Lymph # (Auto) 2.1 X10^3/uL (1.3-2.9) 01/28/25 06:07 [place] # (Auto) 0.7 x10^3/uL (0.3-0.8) 01/28/25 06:07 Eos # (Auto) 0.3 x10^3/uL (0.0-0.2) H 01/28/25 06:07 Baso # (Auto) 0.1 X10^3/uL (0.0-0.1) 01/28/25 06:07 Absolute Nucleated RBC 0.2 /100WBC 01/28/25 06:07 PT 28.6 SECONDS (11.8-14.3) 01/27/25 04:59 INR Target Range - 01/27/25 04:59 INR 2.67 (0.8-1.3) H 01/27/25 04:59 Sodium 143 mmol/L (136-145) 01/28/25 06:07 Corrected Sodium 143 mmol/L (136-145) 01/28/25 06:07 Potassium 3.2 mmol/L (3.5-5.1) L 01/28/25 06:07 Chloride 106 mmol/L (98-107) 01/28/25 06:07 Carbon Dioxide 27.1 mmol/L (21-32) 01/28/25 06:07 BUN 10 mg/dL (7-18) 01/28/25 06:07 Creatinine 0.49 mg/dL (0.55-1.02) L 01/28/25 06:07 Est GFR (MDRD) Af Amer > 60 (>60) 01/28/25 06:07 Est GFR (MDRD) Non-Af > 60 (>60) 01/28/25 06:07 Glucose 116 mg/dL (65-99) H 01/28/25 06:07 Calcium 8.4 mg/dL (8.5-10.1) L 01/28/25 06:07 Corrected Calcium 9.0 mg/dL (8.5-10.1) 01/28/25 06:07 Magnesium 1.7 mg/dL (2.0-2.9) L 01/28/25 06:07 Total Bilirubin 0.40 mg/dL (0.2-1.0) 01/28/25 06:07 AST 20 Units/L (15-37) 01/28/25 06:07 ALT 29 Units/L (12-78) 01/28/25 06:07 Alkaline Phosphatase 113 Units/L (46-116) 01/28/25 06:07 Total Protein 6.9 g/dL (6.4-8.2) 01/28/25 06:07 Albumin 3.3 g/dL (3.4-5.0) L 01/28/25 06:07 Globulin 3.6 g/dL (2.5-4.5) 01/28/25 06:07 Albumin/Globulin Ratio 0.9 Ratio (1.1-2.1) L 01/28/25 06:07 Plan (1) UTI due to extended-spectrum beta lactamase (ESBL) producing Escherichia coli: Status: Acute Plan: IV invanz (2) Hypokalemia: Status: Acute Plan: replete per protocol
--- NOTE | 2025-01-28 11:47 | PCM.PROG ---
Progress Note Progress Note for Day of Date of Exam: 01/28/25 Subjective Subjective: Patient is a 79-year-old female directly admitted after failing outpatient treatment for acute cystitis due to E coli ESBL. She is sitting in recliner this morning. No acute events overnight. Labs/imaging: WBC 6, hemoglobin 11.6, platelets 198, sodium 143, potassium 3.2, creatinine 0.49, glucose 116. She is currently receiving IV antibiotics with Invanz. Replete electrolytes per protocol. Home medications have been resumed. Otherwise continue current treatment plan. Continue closely monitor and follow-up labs/imaging. Past Medical Family Social History Allergies: Allergies ketorolac Allergy (Mild, Verified 10/25/24 11:14) clindamycin Allergy (Verified 10/25/24 11:14) RASH nitrofurantoin (From Macrodantin) Allergy (Verified 10/25/24 11:14) phenytoin Allergy (Verified 10/25/24 11:14) Sulfa (Sulfonamide Antibiotics) (SULFA) Allergy (Verified 10/25/24 11:14) sulfamethoxazole (From Bactrim) Allergy (Verified 10/25/24 11:14) trimethoprim (From Bactrim) Allergy (Verified 10/25/24 11:14) Review of Systems ROS changes noted: see HPI Vital Signs and I&O's Vital Signs: Vital Signs Temperature 98.4 F Temperature 98.2 F Pulse Rate [Left Brachial] 72 Pulse Rate [Left Brachial] 66 Respiratory Rate 18 Respiratory Rate 18 Blood Pressure [Left Arm] 135/63 Blood Pressure [Left Arm] 146/66 O2 Sat by Pulse Oximetry 96 O2 Sat by Pulse Oximetry 98 Intake and Output: Intake & Output 01/25/25 01/26/25 01/27/25 01/28/25 23:59 23:59 23:59 23:59 Intake Total 455 / 455 2997 / 2997 519 / 519 Output Total 2 / 2 Balance 453 / 453 2997 / 2997 519 / 519 Physical Exam Oriented: Normal Eyes: Normal Ear: Normal Nose: Normal Throat: Normal Respiratory: Normal Cardiovascular: Normal : Normal Auscultation: Bowel Sounds: Normal Tenderness: Normal Skin: Normal Musculoskeletal: Normal Psychiatric: Normal Mood Description: Calm and Appropriate Affect: Normal Speech Pattern: Clear and Appropriate Laboratory and Diagnostics 01/28/25 06:07 01/28/25 06:07 Labs: Laboratory WBC 6.0 X10^3/uL (3.6-10.0) 01/28/25 06:07 RBC 3.79 X10^6/uL (3.5-5.4) 01/28/25 06:07 Hgb 11.6 g/dL (12.0-16.0) L 01/28/25 06:07 Hct 33.6 % (36.0-47.0) L 01/28/25 06:07 MCV 88.8 fL (80.0-100.0) 01/28/25 06:07 MCH 30.7 pg (27.0-34.0) 01/28/25 06:07 MCHC 34.5 g/dL (33.0-35.0) 01/28/25 06:07 RDW 15.1 % (11.6-16.5) 01/28/25 06:07 Plt Count 198 X10^3/uL (150.0-450.0) 01/28/25 06:07 MPV 7.8 fL (7.4-11.0) 01/28/25 06:07 Neut % (Auto) 47.9 % (42.0-75.0) 01/28/25 06:07 Lymph % (Auto) 34.9 % (21.0-51.0) 01/28/25 06:07 [place] % (Auto) 11.3 % (0.0-13.0) 01/28/25 06:07 Eos % (Auto) 4.7 % (0.9-2.9) H 01/28/25 06:07 Baso % (Auto) 1.2 % (0.2-1.0) H 01/28/25 06:07 Neut # (Auto) 2.9 x10^3/uL (2.2-4.8) 01/28/25 06:07 Lymph # (Auto) 2.1 X10^3/uL (1.3-2.9) 01/28/25 06:07 [place] # (Auto) 0.7 x10^3/uL (0.3-0.8) 01/28/25 06:07 Eos # (Auto) 0.3 x10^3/uL (0.0-0.2) H 01/28/25 06:07 Baso # (Auto) 0.1 X10^3/uL (0.0-0.1) 01/28/25 06:07 Absolute Nucleated RBC 0.2 /100WBC 01/28/25 06:07 PT 28.6 SECONDS (11.8-14.3) 01/27/25 04:59 INR Target Range - 01/27/25 04:59 INR 2.67 (0.8-1.3) H 01/27/25 04:59 Sodium 143 mmol/L (136-145) 01/28/25 06:07 Corrected Sodium 143 mmol/L (136-145) 01/28/25 06:07 Potassium 3.2 mmol/L (3.5-5.1) L 01/28/25 06:07 Chloride 106 mmol/L (98-107) 01/28/25 06:07 Carbon Dioxide 27.1 mmol/L (21-32) 01/28/25 06:07 BUN 10 mg/dL (7-18) 01/28/25 06:07 Creatinine 0.49 mg/dL (0.55-1.02) L 01/28/25 06:07 Est GFR (MDRD) Af Amer > 60 (>60) 01/28/25 06:07 Est GFR (MDRD) Non-Af > 60 (>60) 01/28/25 06:07 Glucose 116 mg/dL (65-99) H 01/28/25 06:07 Calcium 8.4 mg/dL (8.5-10.1) L 01/28/25 06:07 Corrected Calcium 9.0 mg/dL (8.5-10.1) 01/28/25 06:07 Magnesium 1.7 mg/dL (2.0-2.9) L 01/28/25 06:07 Total Bilirubin 0.40 mg/dL (0.2-1.0) 01/28/25 06:07 AST 20 Units/L (15-37) 01/28/25 06:07 ALT 29 Units/L (12-78) 01/28/25 06:07 Alkaline Phosphatase 113 Units/L (46-116) 01/28/25 06:07 Total Protein 6.9 g/dL (6.4-8.2) 01/28/25 06:07 Albumin 3.3 g/dL (3.4-5.0) L 01/28/25 06:07 Globulin 3.6 g/dL (2.5-4.5) 01/28/25 06:07 Albumin/Globulin Ratio 0.9 Ratio (1.1-2.1) L 01/28/25 06:07 Plan (1) UTI due to extended-spectrum beta lactamase (ESBL) producing Escherichia coli: Status: Acute Plan: IV invanz (2) Hypokalemia: Status: Acute Plan: replete per protocol
[2025-01-28] MEDS: NORVASC TAB 2.5 MG ONE (11:59)
--- NOTE | 2025-01-28 17:25 | EKG ---
Test Reason : HTN protocol Blood Pressure : */* mmHG Vent. Rate : 69 BPM Atrial Rate : 69 BPM P-R Int : 196 ms QRS Dur : 68 ms QT Int : 418 ms P-R-T Axes : 30 -30 29 degrees QTc Int : 447 ms Normal sinus rhythm Nonspecific T wave abnormality Left axis deviation Minimal voltage criteria for LVH, may be normal variant ( R in aVL ) Abnormal ECG No previous ECGs available Confirmed by Willy Young MD ([id number]) on 01/29/2025 6:42:22 AM Referred By: Confirmed By: Willy Young MD
[2025-01-28] MEDS: CATAPRES TAB 0.1 MG PO ONE (17:30)
[2025-01-28] MEDS: CATAPRES TAB 0.1 MG ONE (17:39)
[2025-01-29 06:44] LABS: MEAN PLATELET VOLUME 7.8 fL (7.4-11.0); RED CELL DISTRIBUTION WIDTH 15.0 % (11.6-16.5)
[2025-01-29 06:45] LABS: INR 2.58 (0.8-1.3)
[2025-01-29 06:50] LABS: CREATININE 0.57 mg/dL (0.55-1.02); eGFR NON BLACK RACES > 60 (>60)
[2025-01-29] MEDS ORDERED: NORVASC TAB 2.5 MG ONE (09:33)
--- NOTE | 2025-01-29 10:18 | PCM.PROG ---
Progress Note Progress Note for Day of Date of Exam: 01/29/25 Subjective Subjective: Patient is a 79-year-old female directly admitted after failing outpatient treatment for acute cystitis due to E coli ESBL. This morning she is resting in bed comfortably. No acute events overnight. Labs/imaging: WBC 6.5, hemoglobin 12.1, platelets 223, sodium 141, potassium 4.3, creatinine 0.57, glucose 101. She is currently receiving IV antibiotics with Invanz. Replete electrolytes per protocol. Home medications have been resumed. Otherwise continue current treatment plan. Continue closely monitor and follow-up labs/imaging. Past Medical Family Social History Allergies: Allergies ketorolac Allergy (Mild, Verified 10/25/24 11:14) clindamycin Allergy (Verified 10/25/24 11:14) RASH nitrofurantoin (From Macrodantin) Allergy (Verified 10/25/24 11:14) phenytoin Allergy (Verified 10/25/24 11:14) Sulfa (Sulfonamide Antibiotics) (SULFA) Allergy (Verified 10/25/24 11:14) sulfamethoxazole (From Bactrim) Allergy (Verified 10/25/24 11:14) trimethoprim (From Bactrim) Allergy (Verified 10/25/24 11:14) Review of Systems ROS changes noted: see HPI Vital Signs and I&O's Vital Signs: Vital Signs Temperature 97.6 F Temperature 98.0 F Pulse Rate [Left Brachial] 68 Pulse Rate [Left Brachial] 61 Respiratory Rate 18 Respiratory Rate 19 Blood Pressure [Left Arm] 147/65 Blood Pressure [Left Arm] 158/71 O2 Sat by Pulse Oximetry 95 O2 Sat by Pulse Oximetry 95 Intake and Output: Intake & Output 01/26/25 01/27/25 01/28/25 01/29/25 23:59 23:59 23:59 23:59 Intake Total 455 / 455 2997 / 2997 2035 503 / 503 Output Total 2 / 2 Balance 453 / 453 2997 / 2997 2035 503 / 503 Physical Exam Oriented: Normal Eyes: Normal Ear: Normal Nose: Normal Throat: Normal Respiratory: Normal Cardiovascular: Normal : Normal Auscultation: Bowel Sounds: Normal Tenderness: Normal Skin: Normal Musculoskeletal: Normal Psychiatric: Normal Mood Description: Calm and Appropriate Affect: Normal Speech Pattern: Clear and Appropriate Laboratory and Diagnostics 01/29/25 06:05 07/13/25 06:05 Labs: Laboratory WBC 6.5 X10^3/uL (3.6-10.0) 01/29/25 06:05 RBC 3.95 X10^6/uL (3.5-5.4) 01/29/25 06:05 Hgb 12.1 g/dL (12.0-16.0) 01/29/25 06:05 Hct 35.3 % (36.0-47.0) L 01/29/25 06:05 MCV 89.2 fL (80.0-100.0) 01/29/25 06:05 MCH 30.5 pg (27.0-34.0) 01/29/25 06:05 MCHC 34.2 g/dL (33.0-35.0) 01/29/25 06:05 RDW 15.0 % (11.6-16.5) 01/29/25 06:05 Plt Count 223 X10^3/uL (150.0-450.0) 01/29/25 06:05 MPV 7.8 fL (7.4-11.0) 01/29/25 06:05 Neut % (Auto) 51.0 % (42.0-75.0) 01/29/25 06:05 Lymph % (Auto) 35.0 % (21.0-51.0) 01/29/25 06:05 [place] % (Auto) 8.5 % (0.0-13.0) 01/29/25 06:05 Eos % (Auto) 4.4 % (0.9-2.9) H 01/29/25 06:05 Baso % (Auto) 1.1 % (0.2-1.0) H 01/29/25 06:05 Neut # (Auto) 3.3 x10^3/uL (2.2-4.8) 01/29/25 06:05 Lymph # (Auto) 2.3 X10^3/uL (1.3-2.9) 01/29/25 06:05 [place] # (Auto) 0.5 x10^3/uL (0.3-0.8) 01/29/25 06:05 Eos # (Auto) 0.3 x10^3/uL (0.0-0.2) H 01/29/25 06:05 Baso # (Auto) 0.1 X10^3/uL (0.0-0.1) 01/29/25 06:05 Absolute Nucleated RBC 0.0 /100WBC 01/29/25 06:05 PT 27.9 SECONDS (11.8-14.3) 01/29/25 06:05 INR Target Range - 01/29/25 06:05 INR 2.58 (0.8-1.3) H 01/29/25 06:05 Sodium 141 mmol/L (136-145) 01/29/25 06:05 Corrected Sodium TNP 01/29/25 06:05 Potassium 4.3 mmol/L (3.5-5.1) 01/29/25 06:05 Chloride 105 mmol/L (98-107) 01/29/25 06:05 Carbon Dioxide 29.8 mmol/L (21-32) 01/29/25 06:05 BUN 13 mg/dL (7-18) 01/29/25 06:05 Creatinine 0.57 mg/dL (0.55-1.02) 01/29/25 06:05 Est GFR (MDRD) Af Amer > 60 (>60) 01/29/25 06:05 Est GFR (MDRD) Non-Af > 60 (>60) 01/29/25 06:05 Glucose 101 mg/dL (65-99) H 01/29/25 06:05 Calcium 8.7 mg/dL (8.5-10.1) 01/29/25 06:05 Corrected Calcium TNP 01/29/25 06:05 Magnesium 2.0 mg/dL (2.0-2.9) 01/29/25 06:05 Total Bilirubin 0.60 mg/dL (0.2-1.0) 01/29/25 06:05 AST 21 Units/L (15-37) 01/29/25 06:05 ALT 29 Units/L (12-78) 01/29/25 06:05 Alkaline Phosphatase 101 Units/L (46-116) 01/29/25 06:05 Total Protein 7.3 g/dL (6.4-8.2) 01/29/25 06:05 Albumin 3.5 g/dL (3.4-5.0) 01/29/25 06:05 Globulin 3.8 g/dL (2.5-4.5) 01/29/25 06:05 Albumin/Globulin Ratio 0.9 Ratio (1.1-2.1) L 01/29/25 06:05 Plan (1) UTI due to extended-spectrum beta lactamase (ESBL) producing Escherichia coli: Status: Acute Plan: IV invanz (2) Hypokalemia: Status: Acute Plan: replete per protocol
[2025-01-29] MEDS ORDERED: TYLENOL 325 MG TAB PO PRN (20:55)
[2025-01-30 06:14] LABS: MEAN PLATELET VOLUME 7.9 fL (7.4-11.0); RED CELL DISTRIBUTION WIDTH 14.8 % (11.6-16.5)
[2025-01-30 06:16] LABS: INR 2.36 (0.8-1.3)
[2025-01-30 06:27] LABS: CREATININE 0.51 mg/dL (0.55-1.02); eGFR NON BLACK RACES > 60 (>60)
[2025-01-30] MEDS: ULTRAM PO PRN (09:43)
--- NOTE | 2025-01-30 10:36 | PCM.PROG ---
Progress Note Progress Note for Day of Date of Exam: 01/30/25 Subjective Subjective: Patient seen at bedside, no acute events overnight. She is doing well. She is currently admitted for ESBL UTI. She is on IV antibiotics. She has been ambulating in the room. Patient will need at least 10 days more of IV antibiotics. Unable to place PICC line this week. Patient does not have help at home and cannot drive to ER daily to get IV antibiotics. CM working on swing bed placement. Labs/imaging reviewed: -WBC 6.4 Hgb 12 Plt 222 K 3.7 Cr 0.51 Glucose 99 -Urine Cx: ESBL Plan: Continue IV Invanz. Replace electrolytes as per protocol. Ambulate prn. Continue home medications. CM to work on swing bed placement. Patient needs another 10 days of IV antibiotics. Monitor AM labs/imaging. Past Medical Family Social History Allergies: Allergies ketorolac Allergy (Mild, Verified 10/25/24 11:14) clindamycin Allergy (Verified 10/25/24 11:14) RASH nitrofurantoin (From Macrodantin) Allergy (Verified 10/25/24 11:14) phenytoin Allergy (Verified 10/25/24 11:14) Sulfa (Sulfonamide Antibiotics) (SULFA) Allergy (Verified 10/25/24 11:14) sulfamethoxazole (From Bactrim) Allergy (Verified 10/25/24 11:14) trimethoprim (From Bactrim) Allergy (Verified 10/25/24 11:14) Vital Signs and I&O's Vital Signs: Vital Signs Temperature 98.1 F Temperature 97.8 F Pulse Rate [Left Brachial] 75 Pulse Rate [Left Brachial] 67 Respiratory Rate 20 Respiratory Rate 16 Respiratory Rate 16 Blood Pressure [Left Arm] 142/65 Blood Pressure [Left Arm] 138/63 O2 Sat by Pulse Oximetry 96 O2 Sat by Pulse Oximetry 96 Intake and Output: Intake & Output 01/27/25 01/28/25 01/29/25 01/30/25 23:59 23:59 23:59 23:59 Intake Total 2997 / 2997 2035 / 2035 4583 / 4583 949 / 949 Balance 2997 / 2997 2035 4583 / 4583 949 / 949 Physical Exam Oriented: Normal Eyes: Normal Ear: Normal Nose: Normal Throat: Normal Respiratory: Normal Cardiovascular: Normal Auscultation: Bowel Sounds: Normal Palpation: Normal Tenderness: Normal Skin: Normal Musculoskeletal: Normal Psychiatric: Normal Mood Description: Calm and Appropriate Affect: Normal Speech Pattern: Clear and Appropriate Laboratory and Diagnostics 01/30/25 05:41 01/30/25 05:41 Labs: Laboratory WBC 6.4 X10^3/uL (3.6-10.0) 01/30/25 05:41 RBC 3.88 X10^6/uL (3.5-5.4) 01/30/25 05:41 Hgb 12.0 g/dL (12.0-16.0) 01/30/25 05:41 Hct 34.6 % (36.0-47.0) L 01/30/25 05:41 MCV 89.1 fL (80.0-100.0) 01/30/25 05:41 MCH 31.1 pg (27.0-34.0) 01/30/25 05:41 MCHC 34.8 g/dL (33.0-35.0) 01/30/25 05:41 RDW 14.8 % (11.6-16.5) 01/30/25 05:41 Plt Count 222 X10^3/uL (150.0-450.0) 01/30/25 05:41 MPV 7.9 fL (7.4-11.0) 01/30/25 05:41 Neut % (Auto) 52.4 % (42.0-75.0) 01/30/25 05:41 Lymph % (Auto) 32.8 % (21.0-51.0) 01/30/25 05:41 [place] % (Auto) 8.7 % (0.0-13.0) 01/30/25 05:41 Eos % (Auto) 4.9 % (0.9-2.9) H 01/30/25 05:41 Baso % (Auto) 1.2 % (0.2-1.0) H 01/30/25 05:41 Neut # (Auto) 3.3 x10^3/uL (2.2-4.8) 01/30/25 05:41 Lymph # (Auto) 2.1 X10^3/uL (1.3-2.9) 01/30/25 05:41 [place] # (Auto) 0.6 x10^3/uL (0.3-0.8) 01/30/25 05:41 Eos # (Auto) 0.3 x10^3/uL (0.0-0.2) H 01/30/25 05:41 Baso # (Auto) 0.1 X10^3/uL (0.0-0.1) 01/30/25 05:41 Absolute Nucleated RBC 0.1 /100WBC 01/30/25 05:41 PT 26.0 SECONDS (11.8-14.3) 01/30/25 05:41 INR Target Range - 01/30/25 05:41 INR 2.36 (0.8-1.3) H 01/30/25 05:41 Sodium 142 mmol/L (136-145) 01/30/25 05:41 Corrected Sodium TNP 01/30/25 05:41 Potassium 3.7 mmol/L (3.5-5.1) 01/30/25 05:41 Chloride 106 mmol/L (98-107) 01/30/25 05:41 Carbon Dioxide 32.1 mmol/L (21-32) H 01/30/25 05:41 BUN 12 mg/dL (7-18) 01/30/25 05:41 Creatinine 0.51 mg/dL (0.55-1.02) L 01/30/25 05:41 Est GFR (MDRD) Af Amer > 60 (>60) 01/30/25 05:41 Est GFR (MDRD) Non-Af > 60 (>60) 01/30/25 05:41 Glucose 99 mg/dL (65-99) 01/30/25 05:41 Calcium 8.7 mg/dL (8.5-10.1) 01/30/25 05:41 Corrected Calcium TNP 01/30/25 05:41 Magnesium 2.0 mg/dL (2.0-2.9) 01/29/25 06:05 Total Bilirubin 0.50 mg/dL (0.2-1.0) 01/30/25 05:41 AST 17 Units/L (15-37) 01/30/25 05:41 ALT 30 Units/L (12-78) 01/30/25 05:41 Alkaline Phosphatase 109 Units/L (46-116) 01/30/25 05:41 Total Protein 7.2 g/dL (6.4-8.2) 01/30/25 05:41 Albumin 3.4 g/dL (3.4-5.0) 01/30/25 05:41 Globulin 3.8 g/dL (2.5-4.5) 01/30/25 05:41 Albumin/Globulin Ratio 0.9 Ratio (1.1-2.1) L 01/30/25 05:41 Plan (1) UTI due to extended-spectrum beta lactamase (ESBL) producing Escherichia coli: Status: Acute Plan: IV invanz (2) Hypokalemia: Status: Acute Plan: replete per protocol (3) History of pulmonary embolism: Status: Chronic (4) Hyperlipidemia: Status: Chronic Qualifiers: Hyperlipidemia type: mixed hyperlipidemia Qualified Code(s): E78.2 - Mixed hyperlipidemia (5) Hypertension: Status: Chronic Qualifiers: Hypertension goal: less than 140/90 Hypertension type: essential hypertension Qualified Code(s): I10 - Essential (primary) hypertension
[2025-01-30] MEDS: ZOFRAN TAB 4 MG SL PRN (12:54)
[2025-01-30] MEDS: NORVASC TAB 2.5 MG ONE (17:42)
[2025-01-31 06:49] LABS: MEAN PLATELET VOLUME 7.9 fL (7.4-11.0); RED CELL DISTRIBUTION WIDTH 14.8 % (11.6-16.5)
[2025-01-31 06:55] LABS: INR 2.55 (0.8-1.3)
[2025-01-31 07:02] LABS: COR CA(FOR HYPOALB) 9.1 mg/dL (8.5-10.1); CREATININE 0.68 mg/dL (0.55-1.02); eGFR NON BLACK RACES > 60 (>60)
[2025-01-31] MEDS ORDERED: NORVASC TAB 2.5 MG ONE (09:13)
[2025-01-31 23:36] VITALS: RESP 19
[2025-02-01 06:08] LABS: MEAN PLATELET VOLUME 8.0 fL (7.4-11.0); RED CELL DISTRIBUTION WIDTH 14.9 % (11.6-16.5)
[2025-02-01 06:25] LABS: CREATININE 0.62 mg/dL (0.55-1.02); eGFR NON BLACK RACES > 60 (>60)
[2025-02-01 08:11] VITALS: BP 153/67; PULSE 65; TEMP 98.7; O2SAT 95
[2025-02-01] MEDS: NORVASC TAB 2.5 MG ONE (08:14)
[2025-02-01] MEDS: NS 250 ML IV 250 ML IV ONE (08:18)
--- NOTE | 2025-02-01 09:59 | PCM.PROG ---
Progress Note Progress Note for Day of Date of Exam: 01/31/25 Subjective Subjective: Patient seen at bedside, no acute events overnight. She is doing well. She is currently admitted for ESBL UTI. She is on IV antibiotics. CM working on swing bed placement. Labs/imaging reviewed: -Urine Cx: ESBL Plan: Continue IV Invanz. Replace electrolytes as per protocol. Stop IVF. Ambulate prn. Continue home medications. CM to work on swing bed placement. Monitor AM labs/imaging. Past Medical Family Social History Allergies: Allergies ketorolac Allergy (Mild, Verified 10/25/24 11:14) clindamycin Allergy (Verified 10/25/24 11:14) RASH nitrofurantoin (From Macrodantin) Allergy (Verified 10/25/24 11:14) phenytoin Allergy (Verified 10/25/24 11:14) Sulfa (Sulfonamide Antibiotics) (SULFA) Allergy (Verified 10/25/24 11:14) sulfamethoxazole (From Bactrim) Allergy (Verified 10/25/24 11:14) trimethoprim (From Bactrim) Allergy (Verified 10/25/24 11:14) Vital Signs and I&O's Vital Signs: Vital Signs Temperature 98.7 F Temperature 98.0 F Pulse Rate [Left Brachial] 65 Pulse Rate [Left Brachial] 64 Respiratory Rate 19 Respiratory Rate 19 Blood Pressure [Right Arm] 153/67 Blood Pressure [Right Arm] 156/72 O2 Sat by Pulse Oximetry 95 O2 Sat by Pulse Oximetry 97 Intake and Output: Intake & Output 01/29/25 01/30/25 01/31/25 02/01/25 23:59 23:59 23:59 23:59 Intake Total 4583 / 4583 3129 / 3129 2615 / 2615 120 / 120 Balance 4583 / 4583 3129 / 3129 2615 / 2615 120 / 120 Physical Exam Oriented: Normal Eyes: Normal Ear: Normal Nose: Normal Throat: Normal Respiratory: Normal Cardiovascular: Normal : Normal Auscultation: Bowel Sounds: Normal Tenderness: Normal Skin: Normal Musculoskeletal: Normal Psychiatric: Normal Mood Description: Calm and Appropriate Affect: Normal Speech Pattern: Clear and Appropriate Laboratory and Diagnostics 02/01/25 05:40 02/01/25 05:40 Labs: Laboratory WBC 6.4 X10^3/uL (3.6-10.0) 02/01/25 05:40 RBC 4.09 X10^6/uL (3.5-5.4) 02/01/25 05:40 Hgb 12.5 g/dL (12.0-16.0) 02/01/25 05:40 Hct 36.9 % (36.0-47.0) 02/01/25 05:40 MCV 90.0 fL (80.0-100.0) 02/01/25 05:40 MCH 30.5 pg (27.0-34.0) 02/01/25 05:40 MCHC 33.8 g/dL (33.0-35.0) 02/01/25 05:40 RDW 14.9 % (11.6-16.5) 02/01/25 05:40 Plt Count 240 X10^3/uL (150.0-450.0) 02/01/25 05:40 MPV 8.0 fL (7.4-11.0) 02/01/25 05:40 Neut % (Auto) 50.2 % (42.0-75.0) 02/01/25 05:40 Lymph % (Auto) 35.5 % (21.0-51.0) 02/01/25 05:40 [place] % (Auto) 8.3 % (0.0-13.0) 02/01/25 05:40 Eos % (Auto) 4.6 % (0.9-2.9) H 02/01/25 05:40 Baso % (Auto) 1.4 % (0.2-1.0) H 02/01/25 05:40 Neut # (Auto) 3.2 x10^3/uL (2.2-4.8) 02/01/25 05:40 Lymph # (Auto) 2.3 X10^3/uL (1.3-2.9) 02/01/25 05:40 [place] # (Auto) 0.5 x10^3/uL (0.3-0.8) 02/01/25 05:40 Eos # (Auto) 0.3 x10^3/uL (0.0-0.2) H 02/01/25 05:40 Baso # (Auto) 0.1 X10^3/uL (0.0-0.1) 02/01/25 05:40 Absolute Nucleated RBC 0.2 /100WBC 02/01/25 05:40 PT 27.6 SECONDS (11.8-14.3) 01/31/25 06:00 INR Target Range - 01/31/25 06:00 INR 2.55 (0.8-1.3) H 01/31/25 06:00 Sodium 141 mmol/L (136-145) 02/01/25 05:40 Corrected Sodium TNP 02/01/25 05:40 Potassium 4.0 mmol/L (3.5-5.1) 02/01/25 05:40 Chloride 104 mmol/L (98-107) 02/01/25 05:40 Carbon Dioxide 28.9 mmol/L (21-32) 02/01/25 05:40 BUN 16 mg/dL (7-18) 02/01/25 05:40 Creatinine 0.62 mg/dL (0.55-1.02) 02/01/25 05:40 Est GFR (MDRD) Af Amer > 60 (>60) 02/01/25 05:40 Est GFR (MDRD) Non-Af > 60 (>60) 02/01/25 05:40 Glucose 99 mg/dL (65-99) 02/01/25 05:40 Calcium 9.2 mg/dL (8.5-10.1) 02/01/25 05:40 Corrected Calcium TNP 02/01/25 05:40 Magnesium 2.0 mg/dL (2.0-2.9) 02/01/25 05:40 Total Bilirubin 0.60 mg/dL (0.2-1.0) 02/01/25 05:40 AST 23 Units/L (15-37) 02/01/25 05:40 ALT 27 Units/L (12-78) 02/01/25 05:40 Alkaline Phosphatase 106 Units/L (46-116) 02/01/25 05:40 Total Protein 6.9 g/dL (6.4-8.2) 02/01/25 05:40 Albumin 3.5 g/dL (3.4-5.0) 02/01/25 05:40 Globulin 3.4 g/dL (2.5-4.5) 02/01/25 05:40 Albumin/Globulin Ratio 1.0 Ratio (1.1-2.1) L 02/01/25 05:40 Plan (1) UTI due to extended-spectrum beta lactamase (ESBL) producing Escherichia coli: Status: Acute Plan: IV invanz (2) Hypokalemia: Status: Acute Plan: replete per protocol (3) History of pulmonary embolism: Status: Chronic (4) Hyperlipidemia: Status: Chronic Qualifiers: Hyperlipidemia type: mixed hyperlipidemia Qualified Code(s): E78.2 - Mixed hyperlipidemia (5) Hypertension: Status: Chronic Qualifiers: Hypertension goal: less than 140/90 Hypertension type: essential hypertension Qualified Code(s): I10 - Essential (primary) hypertension
[2025-02-01] MEDS: COLACE CAP 100 MG PO PRN (10:32)
== END 2025-02-01 08:59 | disposition swing bed (61) | DRG 690 ==
LOC: MED/SURG
PROVIDERS: ADMIT Family Medicine; ATTEND Family Medicine
DX: I10 Essential (primary) hypertension; Z74.2 Need for assistance at home and no other household member able to render care; Z16.23 Resistance to quinolones and fluoroquinolones; R79.1 Abnormal coagulation profile; Z16.12 Extended spectrum beta lactamase (ESBL) resistance; Z86.73 Personal history of transient ischemic attack (TIA), and cerebral infarction without residual deficits; Z16.29 Resistance to other single specified antibiotic; E78.2 Mixed hyperlipidemia; N39.0 Urinary tract infection, site not specified; Z86.711 Personal history of pulmonary embolism; R26.89 Other abnormalities of gait and mobility; E87.6 Hypokalemia; Z29.89 Encounter for other specified prophylactic measures; R94.31 Abnormal electrocardiogram [ECG] [EKG]; B96.29 Other Escherichia coli [E. coli] as the cause of diseases classified elsewhere; E83.51 Hypocalcemia; R73.09 Other abnormal glucose; E83.42 Hypomagnesemia

== ENCOUNTER 2025-02-01 09:00 | Inpatient (IN) ==
[2025-02-01] MEDS ORDERED: ZOFRAN TAB 4 MG SL PRN (11:28)
[2025-02-01] MEDS ORDERED: ULTRAM PO PRN (11:28)
[2025-02-01] MEDS ORDERED: COLACE CAP 100 MG PO PRN (11:28)
--- NOTE | 2025-02-01 14:21 | PT/OTEVAL ---
PT/OT OBJECTIVES - HISTORY Prescription: OT Consult Diagnosis: Swingbed UTI, EBSL Precautions: Fall risk PMH: Arthritis, CVA and Hypertension Prior Level of Function: Independent Other: Per pt report, pt lives in a 1 story home with no steps. Pt is (I) with ADLs and IADLs. Pt is not driving. DME includes a shower chair and a rollator. Pt states that she needa a new shower chair as hers is broken. Pts daughter assist her with IADLs. No pain noted during eval. History of Present Illness: Patient is a 79-year-old female directly admitted after failing outpatient treatment for acute cystitis. Urine culture positive for E. coli ESBL. Patient was admitted for acute cystitis and hypokalemia. Start on IV antibiotics with Invanz. Pt was transisitoned to swingbed and will be seen by skilled OT, for ADLs and IADLs. - COGNITION Mental Status: Alert Communication Status: Verbal Ability to Follow Directions: 3 Step Memory Loss: None Affect: Calm - PAIN No signs of pain Pain Scale: No Pain Comments: No pain at eval - BED MOBILITY Rolling: Supervision - TRANSFERS Supine to Sit: Supervision Sit to Stand: Supervision - ADL'S Feeding: Supervision Grooming: Supervision Upper Body ADL: Supervision, Minimum Lower Body ADL: Minimum Toileting: Minimum Bathing: Minimum Hygeine: Supervision - BALANCE Static Sitting: Good Standing: Good Dynamic Sitting: Good Standing: Fair Balance Comment: With UE support - NEUROMOTOR/SENSATION Santiago. Upper Ext Sensation: WFL Coordination: WFL [place]. Lower Ext Sensation: WFL Coordination: WFL - HAND DOMINANCE Extremity Function: Hand Dominance: Right - ROM Bilateral UE ROM: WFL - STRENGTH Bilateral UE Strength Number: 3 Bilateral LE Strength Number: 4 Other comment: 4+/5 grossly graded - TREATMENT Date: 02/01/25 Time: 10:00 Treatment Type: Evaluation Treatment Provided: Therapeutic Activities, Therapeutic Excersises - TOTAL TREATMENT TIME Total Time: 55 - POST ASSESSMENT Post Assessment Comment: Pt was seen for skilled OT to assess CLOF. Pt transitioned to swingbed. Pt was able to provide PLOF and hx. Pt agreeable to participate. Pt was in room sitting up EOB. Pt fucntionally AMB around room with supv A. Pt functionally AMB with RW down ramos. Pt participated with BUE exe. 15 reps x2 in all planes. Therapeutic RBs for fatigue. Pt family will bring clothing for dressing and bathing. Pt agreeable to shower tomorrow when she has clothing. Pt given time for functional AMB in facility. F+ dynamic standing balance noted with UE support. Pt had all needs met and call light within reach. Pt demonstrate deficits with ADLs and ADL functional mobility. Pt would benefit from skilled OT services to address ADL deficits to facilitate highest level of ADL function needed for safe d/c planning. - EXIT DISPOSITION Exit Position: CHAIR Call light in reach: Yes PT/OT ASSESSMENT - OT Problem List: Decreased Mobility ADL's, Decreased Dressing, Decreased Bathing, Decreased Grooming, Decreased UE Strength - OT GOALS Scale Clerk Goals Days: 20 Mobility for ADL's: Pt to improve functional ADL transfers to (I) Dressing: Pt to improve LB dressing to (I) Bathing: Pt to improve overall bathing to (I) Grooming: Pt to improve overall grooming/oral care to (I) Upper Ext. Strength/Use: Pt to improve MMT in BUE by 1 grade Other: Pt to improve FAT to G Short Term Goals Days: 10 Mobility for ADL's: Pt to improve functional ADL transfers to set up A and LRAD Dressing: Pt to improve UB dressing to (I) Bathing: Pt to improve overall bathing to set up A Grooming: Pt will collect all items needed for Grooming with set up A. Other: Pt to improve IADL ie bed making folding laundry to set up A. - PATIENT GOALS Patient/Family Goals: To go home and see her dog Rehabilitation Potential: Good to meet stated goals. Justification for Potential: To facilitate highest level of ADL function needed for safe d/c planning. Weakness and Barriers: None - PLAN Suggested Treatment Plan: Therapeutic Activity, Self Care Training, Neuro Re- education, Therapeutic Ex with HEP, Home Management, Patient Education - FREQUENCY AND DURATION OT: 4x a week x 20 days Expected Continuation of Care at Discharge: Home Health
[2025-02-01 16:59] VITALS: BMI 40.4
[2025-02-01] MEDS: MILK OF MAGNESIA PO PRN (20:44)
[2025-02-01] MEDS: COREG TAB 12.5 MG PO SCH (20:45)
[2025-02-01] MEDS: EXELON PO SCH (20:45)
[2025-02-01] MEDS: LIPITOR TAB 80 MG PO SCH (20:45)
[2025-02-01] MEDS: NEURONTIN CAP 400 MG PO SCH (20:45)
[2025-02-01] MEDS: PATIENT'S HOME MEDICATION PO SCH (20:47)
[2025-02-02] MEDS: PROTONIX TAB 40 MG PO SCH (09:03)
[2025-02-02] MEDS: SINGULAIR TAB 10 MG PO SCH (09:03)
[2025-02-02] MEDS: COZAAR PO SCH (09:04)
[2025-02-02] MEDS: PAXIL PO SCH (09:04)
[2025-02-02] MEDS: CELEXA PO SCH (09:05)
[2025-02-02] MEDS: NORVASC TAB 2.5 MG PO SCH (09:05)
[2025-02-02] MEDS: HYDROCHLOROTHIAZIDE 25 MG TAB PO SCH (09:05)
[2025-02-02] MEDS: INVanz INJ 1 GRAM VIAL 1 G in NS 100 ML IV 100 ML IV SCH (09:07)
[2025-02-02] MEDS: NORVASC TAB 2.5 MG ONE (09:07)
[2025-02-02] MEDS: COUMADIN TAB 4 MG (JANTOVEN) PO SCH (10:05)
[2025-02-03 06:30] LABS: MEAN PLATELET VOLUME 8.1 fL (7.4-11.0); RED CELL DISTRIBUTION WIDTH 14.9 % (11.6-16.5)
[2025-02-03 06:48] LABS: COR CA(FOR HYPOALB) 9.4 mg/dL (8.5-10.1); CREATININE 0.48 mg/dL (0.55-1.02); eGFR NON BLACK RACES > 60 (>60)
[2025-02-03] MEDS ORDERED: NORVASC TAB 2.5 MG ONE (08:18)
[2025-02-03] MEDS: POTASSIUM CHLORIDE 8 MEQ PO SCH (11:31)
--- NOTE | 2025-02-03 13:23 | DR.H&P ---
H&P History & Physical for Day of: H&P Date: 02/01/25 Chief Complaint Chief Complaint: UTI, weakness History of Present Illness History of Present Illness: Patient is a 79-year-old female who was directly admitted for acute cystitis due to ESBL infection. She was started on IV fluids and IV antibiotics. She will be admitted as swing bed for IV antibiotics. Labs/imaging reviewed Plan: Admit to swing bed for IV antibiotics. Patient will finish Invanz for total of 14 days. Labs monitor as needed. Resume home medications. Past Medical History Past Medical History: Arthritis, CVA and Hypertension Past Surgical History Surgical History: Hysterectomy Family History Family Medical History: Diabetes Mellitus and Hypertension Medications Home Medications: Home Medications Medication Instructions Recorded Confirmed Type cholecalciferol (vitamin D3) 50 2,000 unit PO WEEKLY 0 07/22/24 02/01/25 History mcg (2,000 unit) capsule citalopram 10 mg tablet 10 mg PO DAILY 08/07/2401/17 History Allergies Allergies Allergy/AdvReac Type Severity Reaction Status Date / Time ketorolac Allergy Mild Verified 10/25/24 11:14 clindamycin Allergy RASH Verified 10/25/24 11:14 nitrofurantoin (From Allergy Verified 10/25/24 11:14 Macrodantin) phenytoin Allergy Verified 10/25/24 11:14 Sulfa (Sulfonamide Allergy Verified 10/25/24 11:14 Antibiotics) (SULFA) sulfamethoxazole (From Allergy Verified 10/25/24 11:14 Bactrim) trimethoprim (From Bactrim) Allergy Verified 10/25/24 11:14 Labs 02/03/25 05:51 02/03/25 05:51 Review of Systems Constitutional: Weakness Eyes: No Symptoms Reported Respiratory: No Symptoms Reported Cardiovascular: No Symptoms Reported Gastrointestinal: No Symptoms Reported Genitourinary: Dysuria and Frequency Musculoskeletal: No Symptoms Reported Skin: No Symptoms Reported Neurological: No Symptoms Reported Physical Exam Vital Signs: Vital Signs Blood Pressure [Right Arm] 153/67 Oriented: Normal Respiratory: Clear Throughout Cardiovascular: Normal Auscultation: Bowel Sounds: Normal Palpation: Normal Tenderness: Normal Skin: Normal Musculoskeletal: Normal Psychiatric: Normal Mood Description: Calm Affect: Normal Speech Pattern: Clear and Appropriate Assessment/Plan (1) UTI due to extended-spectrum beta lactamase (ESBL) producing Escherichia coli: Status: Acute (2) Cystitis with hematuria: Status: Acute Review H&P Reviewed: Yes Patient was examined?: Yes
[2025-02-04] MEDS ORDERED: NORVASC TAB 2.5 MG ONE (09:22)
--- NOTE | 2025-02-04 10:48 | PCM.PROG ---
Progress Note Progress Note for Day of Date of Exam: 02/03/25 Subjective Subjective: Patient is a 79-year-old female who is admitted as swing bed for acute cystitis due to ESBL infection. She is currently receiving IV fluids and IV antibiotics. This morning she is sitting in the recliner. No acute events overnight. She is doing well. No concerns. Labs/imaging reviewed: WBC 6.0, hemoglobin 11.6, platelets 229, sodium 141, potassium 3.9, creatinine 0.48, glucose 96 Plan: Patient is swing bed for IV antibiotics. Patient will finish Invanz for total of 14 days. Labs monitor as needed. Resume home medications. Past Medical Family Social History Allergies: Allergies ketorolac Allergy (Mild, Verified 10/25/24 11:14) clindamycin Allergy (Verified 10/25/24 11:14) RASH nitrofurantoin (From Macrodantin) Allergy (Verified 10/25/24 11:14) phenytoin Allergy (Verified 10/25/24 11:14) Sulfa (Sulfonamide Antibiotics) (SULFA) Allergy (Verified 10/25/24 11:14) sulfamethoxazole (From Bactrim) Allergy (Verified 10/25/24 11:14) trimethoprim (From Bactrim) Allergy (Verified 10/25/24 11:14) Review of Systems ROS changes noted: see HPI Vital Signs and I&O's Vital Signs: Vital Signs Temperature 97.9 F Pulse Rate [Brachial] 65 Respiratory Rate 19 Blood Pressure [Right Arm] 159/71 O2 Sat by Pulse Oximetry 97 Intake and Output: Intake & Output 01/31/25 02/01/25 02/02/25 02/03/25 23:59 23:59 23:59 23:59 Intake Total 1262 / 1262 1025 / 1025 Balance 1262 / 1262 1025 / 1025 Physical Exam Oriented: Normal Eyes: Normal Nose: Normal Respiratory: Normal Cardiovascular: Normal : Normal Auscultation: Bowel Sounds: Normal Palpation: Normal Tenderness: Normal Skin: Normal Musculoskeletal: Normal Speech Pattern: Clear Laboratory and Diagnostics 02/03/25 05:51 02/03/25 05:51 Labs: Laboratory WBC 6.0 X10^3/uL (3.6-10.0) 02/03/25 05:51 RBC 3.81 X10^6/uL (3.5-5.4) 02/03/25 05:51 Hgb 11.6 g/dL (12.0-16.0) L 02/03/25 05:51 Hct 34.3 % (36.0-47.0) L 02/03/25 05:51 MCV 90.0 fL (80.0-100.0) 02/03/25 05:51 MCH 30.3 pg (27.0-34.0) 02/03/25 05:51 MCHC 33.7 g/dL (33.0-35.0) 02/03/25 05:51 RDW 14.9 % (11.6-16.5) 02/03/25 05:51 Plt Count 229 X10^3/uL (150.0-450.0) 02/03/25 05:51 MPV 8.1 fL (7.4-11.0) 02/03/25 05:51 Neut % (Auto) 51.3 % (42.0-75.0) 02/03/25 05:51 Lymph % (Auto) 34.4 % (21.0-51.0) 02/03/25 05:51 [place] % (Auto) 9.4 % (0.0-13.0) 02/03/25 05:51 Eos % (Auto) 3.8 % (0.9-2.9) H 02/03/25 05:51 Baso % (Auto) 1.1 % (0.2-1.0) H 02/03/25 05:51 Neut # (Auto) 3.1 x10^3/uL (2.2-4.8) 02/03/25 05:51 Lymph # (Auto) 2.1 X10^3/uL (1.3-2.9) 02/03/25 05:51 [place] # (Auto) 0.6 x10^3/uL (0.3-0.8) 02/03/25 05:51 Eos # (Auto) 0.2 x10^3/uL (0.0-0.2) 02/03/25 05:51 Baso # (Auto) 0.1 X10^3/uL (0.0-0.1) 02/03/25 05:51 Absolute Nucleated RBC 0.2 /100WBC 02/03/25 05:51 Sodium 141 mmol/L (136-145) 02/03/25 05:51 Corrected Sodium TNP 02/03/25 05:51 Potassium 3.9 mmol/L (3.5-5.1) 02/03/25 05:51 Chloride 103 mmol/L (98-107) 02/03/25 05:51 Carbon Dioxide 29.7 mmol/L (21-32) 02/03/25 05:51 BUN 18 mg/dL (7-18) 02/03/25 05:51 Creatinine 0.48 mg/dL (0.55-1.02) L 02/03/25 05:51 Est GFR (MDRD) Af Amer > 60 (>60) 02/03/25 05:51 Est GFR (MDRD) Non-Af > 60 (>60) 02/03/25 05:51 Glucose 96 mg/dL (65-99) 02/03/25 05:51 Calcium 8.8 mg/dL (8.5-10.1) 02/03/25 05:51 Corrected Calcium 9.4 mg/dL (8.5-10.1) 02/03/25 05:51 Total Bilirubin 0.50 mg/dL (0.2-1.0) 02/03/25 05:51 AST 22 Units/L (15-37) 02/03/25 05:51 ALT 25 Units/L (12-78) 02/03/25 05:51 Alkaline Phosphatase 112 Units/L (46-116) 02/03/25 05:51 Total Protein 6.4 g/dL (6.4-8.2) 02/03/25 05:51 Albumin 3.2 g/dL (3.4-5.0) L 02/03/25 05:51 Globulin 3.2 g/dL (2.5-4.5) 02/03/25 05:51 Albumin/Globulin Ratio 1.0 Ratio (1.1-2.1) L 02/03/25 05:51 Plan (1) UTI due to extended-spectrum beta lactamase (ESBL) producing Escherichia coli: Status: Acute Plan: continue current treatment plan and medications
[2025-02-05 07:42] LABS: INR 1.90 (0.8-1.3)
[2025-02-05] MEDS ORDERED: NORVASC TAB 2.5 MG ONE (08:40)
[2025-02-05] MEDS: TYLENOL 325 MG TAB PO PRN (21:18)
[2025-02-06 05:48] LABS: MEAN PLATELET VOLUME 7.9 fL (7.4-11.0); RED CELL DISTRIBUTION WIDTH 14.9 % (11.6-16.5)
[2025-02-06 06:04] LABS: COR CA(FOR HYPOALB) 9.2 mg/dL (8.5-10.1); CREATININE 0.66 mg/dL (0.55-1.02); eGFR NON BLACK RACES > 60 (>60)
[2025-02-06] MEDS ORDERED: CONSULT PHARMACY - POTASSIUM & MAGNESIUM XX SCH (07:00)
[2025-02-06] MEDS: K-DUR TAB 20 MEQ PO SCH (08:25)
[2025-02-06] MEDS: NS 250 ML IV 250 ML IV ONE (08:25)
--- NOTE | 2025-02-06 10:30 | PCM.PROG ---
Progress Note Progress Note for Day of Date of Exam: 02/06/25 Subjective Subjective: Patient is a 79-year-old female who is admitted as swing bed for acute cystitis due to ESBL infection. She is currently receiving IV antibiotics. She is doing well, no concerns. She does have an eye appointment tomorrow so will be going and coming back. She also has an appointment early Thu which is her last day of the antibiotic. Labs/imaging reviewed: WBC 5.6, hemoglobin 11.7, platelets 223, sodium 140, potassium 3.7, creatinine 0.66, glucose 97 Plan: Patient is swing bed for IV antibiotics. Patient will finish Invanz on Thu. Labs monitor as needed. Continue home medications. Past Medical Family Social History Allergies: Allergies ketorolac Allergy (Mild, Verified 10/25/24 11:14) clindamycin Allergy (Verified 10/25/24 11:14) RASH nitrofurantoin (From Macrodantin) Allergy (Verified 10/25/24 11:14) phenytoin Allergy (Verified 10/25/24 11:14) Sulfa (Sulfonamide Antibiotics) (SULFA) Allergy (Verified 10/25/24 11:14) sulfamethoxazole (From Bactrim) Allergy (Verified 10/25/24 11:14) trimethoprim (From Bactrim) Allergy (Verified 10/25/24 11:14) Vital Signs and I&O's Intake and Output: Intake & Output 02/03/25 02/04/25 02/05/25 02/06/25 23:59 23:59 23:59 23:59 Intake Total 110 / 110 520 / 520 820 / 820 410 / 410 Balance 110 / 110 520 / 520 820 / 820 410 / 410 Physical Exam Oriented: Normal Eyes: Normal Nose: Normal Respiratory: Normal Cardiovascular: Normal : Normal Auscultation: Bowel Sounds: Normal Palpation: Normal Tenderness: Normal Skin: Normal Musculoskeletal: Normal Psychiatric: Normal Mood Description: Calm Affect: Normal Speech Pattern: Clear Laboratory and Diagnostics 02/06/25 05:28 02/06/25 05:28 Labs: Laboratory WBC 5.6 X10^3/uL (3.6-10.0) 02/06/25 05:28 RBC 3.76 X10^6/uL (3.5-5.4) 02/06/25 05:28 Hgb 11.7 g/dL (12.0-16.0) L 02/06/25 05:28 Hct 33.7 % (36.0-47.0) L 02/06/25 05:28 MCV 89.5 fL (80.0-100.0) 02/06/25 05:28 MCH 31.0 pg (27.0-34.0) 02/06/25 05:28 MCHC 34.6 g/dL (33.0-35.0) 02/06/25 05:28 RDW 14.9 % (11.6-16.5) 02/06/25 05:28 Plt Count 223 X10^3/uL (150.0-450.0) 02/06/25 05:28 MPV 7.9 fL (7.4-11.0) 02/06/25 05:28 Neut % (Auto) 46.4 % (42.0-75.0) 02/06/25 05:28 Lymph % (Auto) 37.5 % (21.0-51.0) 02/06/25 05:28 [place] % (Auto) 11.1 % (0.0-13.0) 02/06/25 05:28 Eos % (Auto) 4.0 % (0.9-2.9) H 02/06/25 05:28 Baso % (Auto) 1.0 % (0.2-1.0) 02/06/25 05:28 Neut # (Auto) 2.6 x10^3/uL (2.2-4.8) 02/06/25 05:28 Lymph # (Auto) 2.1 X10^3/uL (1.3-2.9) 02/06/25 05:28 [place] # (Auto) 0.6 x10^3/uL (0.3-0.8) 02/06/25 05:28 Eos # (Auto) 0.2 x10^3/uL (0.0-0.2) 02/06/25 05:28 Baso # (Auto) 0.1 X10^3/uL (0.0-0.1) 02/06/25 05:28 Absolute Nucleated RBC 0.2 /100WBC 02/06/25 05:28 PT 22.0 SECONDS (11.8-14.3) 02/05/25 07:25 INR Target Range - 02/05/25 07: INR 1.90 (0.8-1.3) H 02/05/25 07:25 Sodium 140 mmol/L (136-145) 02/06/25 05:28 Corrected Sodium TNP 02/06/25 05:28 Potassium 3.7 mmol/L (3.5-5.1) 02/06/25 05:28 Chloride 102 mmol/L (98-107) 02/06/25 05:28 Carbon Dioxide 31.8 mmol/L (21-32) 02/06/25 05:28 BUN 16 mg/dL (7-18) 02/06/25 05:28 Creatinine 0.66 mg/dL (0.55-1.02) 02/06/25 05:28 Est GFR (MDRD) Af Amer > 60 (>60) 02/06/25 05:28 Est GFR (MDRD) Non-Af > 60 (>60) 02/06/25 05:28 Glucose 97 mg/dL (65-99) 02/06/25 05:28 Calcium 8.6 mg/dL (8.5-10.1) 02/06/25 05:28 Corrected Calcium 9.2 mg/dL (8.5-10.1) 02/06/25 05:28 Total Bilirubin 0.60 mg/dL (0.2-1.0) 02/06/25 05:28 AST 17 Units/L (15-37) 02/06/25 05:28 ALT 26 Units/L (12-78) 02/06/25 05:28 Alkaline Phosphatase 112 Units/L (46-116) 02/06/25 05:28 Total Protein 6.4 g/dL (6.4-8.2) 02/06/25 05:28 Albumin 3.2 g/dL (3.4-5.0) L 02/06/25 05:28 Globulin 3.2 g/dL (2.5-4.5) 02/06/25 05:28 Albumin/Globulin Ratio 1.0 Ratio (1.1-2.1) L 02/06/25 05:28 Plan (1) UTI due to extended-spectrum beta lactamase (ESBL) producing Escherichia coli: Status: Acute
[2025-02-06] MEDS: VITAMIN D3 125 mcg (5,000 UNITS) PO SCH (12:31)
[2025-02-06] MEDS: NORVASC TAB 2.5 MG ONE (17:03)
[2025-02-07] MEDS: NORVASC TAB 2.5 MG ONE (13:22)
[2025-02-08] MEDS: INVanz INJ 1 GRAM VIAL 1 G in NS 100 ML IV 100 ML IV ONE (05:49)
[2025-02-08 07:44] VITALS: BP 149/74; PULSE 64; RESP 15; TEMP 98.4; O2SAT 96
== END 2025-02-08 08:20 | disposition home health service (06) | DRG 690 ==
LOC: MED/SURG 09:00
PROVIDERS: ADMIT Internal Medicine; ATTEND Internal Medicine
DX: H53.8 Other visual disturbances; R53.1 Weakness; Z16.29 Resistance to other single specified antibiotic; B96.29 Other Escherichia coli [E. coli] as the cause of diseases classified elsewhere; Z86.73 Personal history of transient ischemic attack (TIA), and cerebral infarction without residual deficits; Z16.23 Resistance to quinolones and fluoroquinolones; R26.89 Other abnormalities of gait and mobility; Z16.12 Extended spectrum beta lactamase (ESBL) resistance; I10 Essential (primary) hypertension; Z29.89 Encounter for other specified prophylactic measures; Z51.89 Encounter for other specified aftercare; N39.0 Urinary tract infection, site not specified; R79.1 Abnormal coagulation profile